=== PATIENT | female | born 1960 | race African-American/Black ===

== ENCOUNTER 2017-07-09 14:06 | Emergency (ER) | payer MEDICARE ==
[~2017-07-09] VITALS: Ht 167.6 cm; Wt 58.3 kg
[~2017-07-09 14:06] MED LIST: DILA2TAB4 PO; METH10TA PO; MULT-135 PO
[2017-07-09 14:38] VITALS: BP 162/68; PULSE 103; RESP 22; TEMP 100.2; O2SAT 94
[2017-07-09] MEDS ORDERED: ONDANSETRON HCL 4 MG/2 ML VIAL IVP ONE (15:15)
[2017-07-09] MEDS ORDERED: SODIUM CHLOR 0.9% 1000 ML INJ 1,000 ML IV ONE (15:15)
[2017-07-09] MEDS ORDERED: HYDROmorphone HCL PF 1 MG/ML VIAL IVS ONE (15:15)
--- NOTE | 2017-07-09 15:19 | PD ---
HPI Chief Complaint: Sickle Cell Time Seen by Provider: 15:04 Travel History International Travel<30 days: No Contact w/Intl Traveler<30days: No Traveled to known affect area: No History of Present Illness HPI The patient was seen and examined in the presence of the nurse. This patient complains of pain everywhere. She was at her oncologist office and received 750 cc of normal saline and 8 mg of IV Dilaudid through her port. She comes in from the office still complaining of pain everywhere. She has a temp of 100.2. She has no respiratory or GI symptoms. No urinary symptoms. She did not know she had a fever. No injury. Symptoms have no alleviating factors. No exacerbating factors. Duration 3 days. PFSH Past Medical History Arthritis: Yes Blood Disorders: Yes Anxiety: No Depression: No Heart Rhythm Problems: Yes Cancer: No Cardiovascular Problems: Yes (IRREGULAR HEART BEAT, VALVE ISSUE) High Cholesterol: Yes Chemotherapy: No Chest Pain: Yes Diabetes: No Diminished Hearing: No Endocrine: No Gastrointestinal Disorders: Yes (irritable bowel syndrome ) GERD: No Genitourinary: No Hepatitis: No Hiatal Hernia: No Immune Disorder: No Implanted Vascular Access Dvce: Yes Kidney Stones: No Musculoskeletal: Yes (SICKLE CELL PAIN) Neurologic: Yes Psychiatric: No Reproductive: No Respiratory: Yes (HX PNEUMONIA) Immunizations Current: Yes Radiation Therapy: No Renal Failure: No Sickle Cell Disease: Yes Thyroid Disease: No Ulcer: No ?: Not : 2 Para: 2 Miscarriage: 0 Tubal Ligation: Yes Past Surgical History Abdominal Surgery: Yes (CHOLY) AICD: No Appendectomy: No Arteriovenous Shunt: No Body Medical Devices: PORT PLACEMENT RIGHT Cardiac Surgery: No Cholecystectomy: Yes Ear Surgery: No Endocrine Surgery: No Eye Surgery: No Genitourinary Surgery: No Gynecologic Surgery: Yes (TUBAL LIGATION , LASH) Hysterectomy: Yes Insulin Pump: No Joint Replacement: No Oral Surgery: No Pacemaker: No Thoracic Surgery: Yes (PORT PLACEMENT RIGHT) Other Surgery: Yes (gallbladder, tubal ligatioin PORT PLACEMENT, LASH) Social History Alcohol Use: No Tobacco Use: No Substance Use: No Allergies-Medications (Allergen,Severity, Reaction): Coded Allergies: enoxaparin (Unverified Allergy, Severe, UNKNOWN REACTION, 07/09/17) pt states she has platlet count problems when heparin used to flush the infusaport heparin (porcine) (Unverified Allergy, Severe, UNKNOWN REACTION, 07/09/17) pt states she has platlet count problems when heparin used to flush the infusaport Reported Meds & Prescriptions Reported Meds & Active Scripts Active Reported Hydrea (Hydroxyurea) 500 Mg Cap 500 Mg PO DAILY Dilaudid (Hydromorphone HCl) 2 Mg Tab 4 Mg PO Q6H PRN Methadone (Methadone HCl) 10 Mg Tab 10 Mg PO TID Review of Systems General / Constitutional: Positive: Fever Eyes: No: Visual changes HENT: No: Headaches Cardiovascular: No: Chest Pain or Discomfort Respiratory: No: Shortness of Breath Gastrointestinal: No: Abdominal Pain Genitourinary: No: Dysuria Musculoskeletal: Positive: Myalgias, Pain Skin: No Rash Neurologic: No: Weakness Psychiatric: No: Depression Endocrine: No: Polydipsia Hematologic/Lymphatic: No: Easy Bruising Physical Exam Narrative GENERAL: Well-nourished, well-developed patient in no apparent distress. SKIN: Focused skin assessment reveals no rash and nodules. Skin is Warm and dry. HEAD: Atraumatic. Normocephalic. EYES: Pupils equal and round. No scleral icterus. No injection or drainage. ENT: No nasal bleeding or discharge. Mucous membranes pink and moist. NECK: Trachea midline. No JVD. Throat clear, no meningeal signs CARDIOVASCULAR: Regular rate and rhythm. No murmur appreciated. RESPIRATORY: No accessory muscle use. Clear to auscultation. Breath sounds equal bilaterally. GASTROINTESTINAL: Abdomen soft, non-tender, nondistended. Hepatic and splenic margins not palpable. MUSCULOSKELETAL: No obvious deformities. No clubbing. No cyanosis. No edema. Port in the right upper chest is no sign of infection NEUROLOGICAL: Awake and alert. No obvious cranial nerve deficits. Motor grossly within normal limits. Normal speech. PSYCHIATRIC: Appropriate mood and affect; insight and judgment normal. Data Data Last Documented VS Vital Signs Date Time Temp Pulse Resp B/P (MAP) Pulse Ox O2 Delivery O2 Flow Rate FiO2 07/09/17 16:50 99.6 100 18 155/74 (101) 100 Room Air Orders Orders Ondansetron Inj (Zofran Inj) (07/09/17 15:15) Sodium Chlor 0.9% 1000 Ml Inj (Ns 1000 M (07/09/17 15:15) Urinalysis - C+S If Indicated (07/09/17 15:14) Chest, Single Ap (07/09/17 ) Hydromorphone Pf Inj (Dilaudid Pf Inj) (07/09/17 15:45) Ed Discharge Order (07/09/17 17:55) Labs Laboratory Tests Test 07/09/17 16:40 Urine Collection Type CLEAN CATCH Urine Color YELLOW Urine Turbidity CLEAR Urine pH 6.0 Urine Specific Baird 1.010 Urine Protein NEG mg/dL Urine Glucose (UA) NEG mg/dL Urine Ketones NEG mg/dL Urine Occult Blood SMALL Urine Nitrite NEG Urine Bilirubin NEG Urine Urobilinogen 0.2 MG/DL Urine Leukocyte Esterase NEG Urine WBC 0-2 /hpf Urine Squamous Epithelial Cells 0-1 /hpf Microscopic Urinalysis Comment CULT NOT INDICATED MDM Medical Decision Making Medical Screen Exam Complete: Yes Emergency Medical Condition: Yes Medical Record Reviewed: Yes Differential Diagnosis Sickle cell pain, myalgias, narcotic seeking behavior, UTI Narrative Course I have reviewed the patient's electronic medical record. Reviewed her lab studies from today. She has chronic anemia and chronic thrombocytopenia both at her baseline. Metabolic profile was normal I gave her a liter of saline IV and IV Zofran and IV Dilaudid for symptom relief I reviewed her chest x-ray which is normal Urinalysis is clean I do not see evidence of bacterial infection. She should follow her temperature closely She did call her industrial controls technician tomorrow for follow-up Stable for outpatient follow-up Diagnosis Primary Impression: Sickle cell anemia with pain Additional Impression: Fever Qualified Codes: R50.9 - Fever, unspecified Additional Instructions: The patient was advised to follow up with their physician and return if they worsen. Med/Other Pt SpecificInfo: Other Disposition: 01 DISCHARGE HOME Condition: Stable Jake Latham MD Jul 09, 2017 15:19
[2017-07-09 15:41] VITALS: BP 141/79; PULSE 79; RESP 18; O2SAT 100
[2017-07-09] MEDS ORDERED: HYDR500C PO (15:41)
[2017-07-09] MEDS ORDERED: HYDROmorphone HCL PF 2 MG/ML VIAL IV PUSH ONE (15:45)
--- NOTE | 2017-07-09 15:56 | RADRPT ---
EXAM DATE/TIME: 07/09/2017 15:36 [facility] COMPARISON: CHEST SINGLE AP, August 10, 2015, 13:04. INDICATIONS : Fever. Sickle cell crisis. MEDICAL HISTORY : Sickle Cell disease. SURGICAL HISTORY : Infusaport. ENCOUNTER: Initial ACUITY: 1 day PAIN SCORE: 2/10 LOCATION: Bilateral chest FINDINGS: The cardiac silhouette is normal in transverse diameter. The lungs are free of acute parenchymal opac ity. No effusions are identified. [id number] is in place via right internal jugular approach with its tip in the superior vena cava. CONCLUSION: 1. No acute cardiopulmonary disease. Eh Donaldson MD on July 09, 2017 at 15:50 Board Certified Radiologist. This report was verified electronically.
[2017-07-09 16:50] VITALS: BP 155/74; PULSE 100; RESP 18; TEMP 99.6; O2SAT 100
[2017-07-09 17:13] LABS: BILIRUBIN, URINE NEG (NEG); BLOOD, URINE SMALL (NEG); GLUCOSE,URINE NEG (NEG); KETONE, URINE NEG (NEG); NITRITE,URINE NEG (NEG); URINE COLOR YELLOW (YELLW/STRAW); URINE LEUKOCYTE ESTERASE NEG (NEG)
[2017-07-09 17:19] LABS: SQUAMOUS EPITHELIAL CELL URINE 0-1 /hpf (0-5); WBC, URINE 0-2 /hpf (0-5)
[2017-07-09] MEDS ORDERED: HYDROmorphone HCL PF 2 MG/ML VIAL IVP ONE (18:15)
[2017-07-09 18:30] VITALS: BP 147/68; RESP 16; O2SAT 98
[2017-07-09 18:57] VITALS: RESP 16
== END 2017-07-09 18:59 | disposition home or self-care (01) ==
LOC: PHED 14:06
DX: D57.00 Hb-SS disease with crisis, unspecified (principal); R50.81 Fever presenting with conditions classified elsewhere; M19.90 Unspecified osteoarthritis, unspecified site; E78.00 Pure hypercholesterolemia, unspecified; K58.9 Irritable bowel syndrome, unspecified; I49.9 Cardiac arrhythmia, unspecified
CPT/HCPCS: 71045; 81001; 96361; 96374; 96375; 96376; 99284; J1170; J2405; J7030

== ENCOUNTER 2017-07-10 12:10 | Inpatient (IN) | payer MEDICARE ==
[2017-07-10] VITALS (8 sets, daily range): BP systolic 133–168; BP diastolic 70–81; PULSE 94–116; RESP 18–20; TEMP 97.7–99.4; O2SAT 98–100
[~2017-07-10 12:10] MED LIST changes: +HYDR500C PO
[2017-07-10] MEDS ORDERED: TEMAZEPAM 15 MG CAP PO PRN (14:15)
[2017-07-10] MEDS ORDERED: PROCHLORPERAZINE INJ 10 MG/2 ML VIAL IV PUSH PRN (14:15)
[2017-07-10] MEDS ORDERED: ALTEPLASE RECOMBINANT 2 MG VIAL IVF PRN (14:15)
[2017-07-10] MEDS ORDERED: diphenhydrAMINE HCL 25 MG CAP PO PRN (14:15)
[2017-07-10] MEDS ORDERED: SODIUM CHLORIDE 0.9% FLUSH 10 ML FLUSH IVF PRN (14:15)
[2017-07-10] MEDS ORDERED: SODIUM CHLOR 0.9% 250 ML INJ 250 ML IV ONE (14:15)
[2017-07-10] MEDS ORDERED: MAGNESIUM HYDROXIDE SUSP 30 ML CUP PO PRN (14:15)
[2017-07-10] MEDS ORDERED: ONDANSETRON INJ 8 MG in DEXTROSE 5% IN WATER INJ 50 ML IV PRN ×2 (14:15)
[2017-07-10] MEDS ORDERED: LORazepam 0.5 MG TAB PO PRN (14:15)
[2017-07-10] MEDS ORDERED: ACETAMINOPHEN 325 MG TAB PO PRN (14:15)
[2017-07-10] MEDS ORDERED: HYDROmorphone HCL PF 2 MG/ML VIAL IV PUSH SCH (15:00)
--- NOTE | 2017-07-10 15:12 | MH ---
cc: Pema Chin MD DATE OF ADMISSION: 07/10/2017 ADMISSION DIAGNOSES: 1. Sickle cell disease and frequent vasoocclusive pain crises. 2. Sickle cell pain. 3. Thrombocytopenia. 4. Chronic anemia. 5. Hyperbilirubinemia. HISTORY OF PRESENT ILLNESS: Ms. Vergara is a 56-year-old woman, well known patient, with sickle cell thalassemia. 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 She has chronic pain, for which she is on methadone 10 mg t.i.d. She takes Dilaudid p.r.n. for breakthrough. She is frequently in the clinic trying to manage her vasoocclusive pain symptoms. She was in the clinic on 07/09/2017, receiving IV fluid hydration for acute vasoocclusive pain symptoms. Coming back from the bathroom, she had acute onset of bone pain. She had severe unrelenting pain that was not relieved with Dilaudid 4 mg. This was more severe pain that could be managed in the clinic, especially without any relief at all from Dilaudid 4 mg. She was referred to the emergency room for evaluation. She was seen by Dr. Jake Latham. She had a slight elevation in temperature. No urinary symptoms. She was given IV fluid hydration and 8 mg of Dilaudid through her port and despite this, however, she was still in pain. However, she was discharged home with an x-ray that is normal and urinalysis that is clean. The following day, she came into the oncology clinic at [facility] with an unscheduled visit. She complains of severe pain in her left arm with significant pain and discomfort out of proportion to her usual baseline pain that she is unable to manage at home. Laboratory evaluation from her ER visit shows a hemoglobin of 8.5. She is reticking with a retic count of 6.3. Her BUN is 8, creatinine 0.91. LDH is elevated. The bilirubin at 2.1. For this reason, she was offered admission to the hospital for management of acute vasoocclusive pain crises. She may need a phlebotomy or red cell exchange. She denies any fever, but she has low-grade temperature on coming into the clinic. She is tachycardic. She has typical symptoms consistent with vasoocclusive pain crises. PAST MEDICAL HISTORY: Chronic anemia, chronic pain, hyperbilirubinemia, splenomegaly, unintentional weight loss, sickle cell. PAST SURGICAL HISTORY: Hysterectomy, port placement. ALLERGIES: HEPARIN. SOCIAL HISTORY: She is . Never smoker. She drinks alcohol occasionally. She denies any illicit drug use. FAMILY HISTORY: No family history of cancer. She does not know if her parents are still around. PHYSICAL EXAMINATION: VITAL SIGNS: Temperature 99.4, heart rate 94, respiratory rate 18, blood pressure 136/78. GENERAL: Ms. Vergara is a slender, well-developed woman in some modest distress. She is painful, hurting, with her left arm the most painful site. HEENT: Her pupils are round and reactive. Sclerae are icteric. Oropharynx is clear. NECK: Supple. LUNGS: Clear. CARDIOVASCULAR: Reveals tachycardia. ABDOMEN: Benign. EXTREMITIES: Lower extremities with no edema. LABORATORY DATA: As described above. ASSESSMENT AND PLAN: Ms. Vergara is a 56-year-old woman with sickle thalassemia, chronic anemia, chronic thrombocytopenia. SHE HAS A HISTORY OF ALLERGY TO HEPARIN WITH HEPARIN-INDUCED THROMBOCYTOPENIA. We discussed admission to the hospital for acute management of her vasoocclusive pain symptoms. I recommend exchange via removal of 200 mL of red blood cells and in turn transfusing. Ms. Vergara has been infrequently transfused. She has not required it as her hemoglobin is quite stable, high, with her sickle thalassemia. She has out of proportion pain. We will continue her long-acting pain medication with methadone. Her breakthrough medication will be offered frequently. Try to assist in managing her symptoms. In the meantime, supportive care with IV fluid hydration and oxygen is also going to be administered. There seems to be no infectious etiology or precipitating event. This seems to be just related to the course of waxing and waning of sickle cell vasoocclusive pain symptoms. We will monitor closely for complications, thrombotic event. Pneumatic compression stockings and support hose will be offered as nonpharmacologic means to prevent deep vein thromboses. Arixtra may be considered if the duration of the hospitalization is longer and if she is not getting out of bed. Her questions were answered to her satisfaction. Pema Chin MD ALEENA/MICKI , 02:23 PM , 03:11 PM
[2017-07-10] MEDS ORDERED: HYDROmorphone HCL PF 2 MG/ML VIAL IV PUSH PRN ×2 (15:15→19:00)
[2017-07-10] MEDS: SODIUM CHLOR 0.9% 1000 ML INJ 1,000 ML IV SCH (15:28)
--- NOTE | 2017-07-10 16:31 | RADRPT ---
EXAM DATE/TIME: 07/10/2017 15:20 [facility] COMPARISON: CHEST SINGLE AP, July 09, 2017, 15:36. INDICATIONS : Chest pain. MEDICAL HISTORY : Sickle Cell disease. SURGICAL HISTORY : Infusaport. ENCOUNTER: Subsequent ACUITY: 2 days PAIN SCORE: 110 LOCATION: Bilateral chest FINDINGS: A single view of the chest demonstrates the lungs to be symmetrically aerated without evidence of mas s, infiltrate or effusion. [id number] in good position. The cardiomediastinal contours are unrem arkable. Osseous structures are intact. CONCLUSION: No acute disease. Hipolito Meier MD FACR on July 10, 2017 at 16:28 Board Certified Radiologist. This report was verified electronically.
[2017-07-10] MEDS: METHADONE HCL 10 MG TAB PO SCH (18:28)
[2017-07-10] MEDS: HYDROmorphone HCL PF 2 MG/ML VIAL IV PUSH SCH ×4 (18:28→23:38)
[2017-07-10 19:11] LABS: AUTOMATED NEUTROPHIL # 3.3 TH/MM3 (1.8-7.7); BASOPHIL % 0.6 % (0.0-2.0); EOSINOPHIL # 0.1 TH/MM3 (0-0.4); EOSINOPHIL % 1.7 % (0.0-4.0); HEMATOCRIT 22.7 % (35.0-46.0); HEMOGLOBIN 7.6 GM/DL (11.6-15.3); LYMPH % 35.7 % (9.0-44.0); LYMPHOCYTE # 2.1 TH/MM3 (1.0-4.8); MEAN CELL VOLUME 69.4 FL (80.0-100.0); MEAN CORPUSCULAR HEMOGLOBIN 23.3 PG (27.0-34.0); MEAN CORPUSCULAR HGB CONC 33.6 % (32.0-36.0); MEAN PLATELET VOLUME 8.9 FL (7.0-11.0); MONO % 4.7 % (0.0-8.0); MONOCYTE # 0.3 TH/MM3 (0-0.9); NEUT % 57.3 % (16.0-70.0); PLATELET COUNT 116 TH/MM3 (150-450); RED BLOOD COUNT 3.27 MIL/MM3 (4.00-5.30); RED CELL DISTRIBUTION WIDTH 22.1 % (11.6-17.2); WHITE BLOOD COUNT 5.8 TH/MM3 (4.0-11.0)
[2017-07-10 19:17] LABS: ALBUMIN 3.5 GM/DL (3.4-5.0); AST (GOT) 60 U/L (15-37); BICARBONATE 28.9 MEQ/L (21.0-32.0); BLOOD UREA NITROGEN 8 MG/DL (7-18); CALCIUM 8.9 MG/DL (8.5-10.1); CHLORIDE 108 MEQ/L (98-107); CREATININE 0.85 MG/DL (0.50-1.00); GLOMERULAR FILTRATION RATE 84 ML/MIN (>89); GLUCOSE,RANDOM 89 MG/DL (74-106); SODIUM (NA) 143 MEQ/L (136-145)
[2017-07-10 19:22] LABS: ALKALINE PHOSPHATASE 60 U/L (45-117); ALT (GPT) 18 U/L (10-53); TROPONIN I LESS THAN 0.02 NG/ML (0.02-0.05)
[2017-07-10 20:35] LABS: CORRECTED NUCLEATED RBC 2 /100 WBC (0-0); LYMPHOCYTES 30 % (9-44); MONOCYTES 2 % (0-8); NEUTROPHIL # MANUAL DIFF 3.8 TH/MM3 (1.8-7.7); NUCLEATED RED BLOOD CELL 2 (0-0); POLYS (SEG NEUTROPHILS) 66 % (16-70)
[2017-07-10 20:37] LABS: KERATOCYTES OCC (NORMAL); TARGET CELLS 1+ (NORMAL)
[2017-07-10 20:38] LABS: OVALOCYTES 1+ (NORMAL)
[2017-07-10 20:43] LABS: TEARDROP RBCS 1+ (NORMAL)
[2017-07-10] MEDS ORDERED: METHADONE HCL 10 MG TAB PO SCH (21:00)
[2017-07-11] VITALS (13 sets, daily range): BP systolic 119–147; BP diastolic 57–86; PULSE 93–116; RESP 18–20; TEMP 98.7–99.4; O2SAT 94–98
[2017-07-11] MEDS: SODIUM CHLOR 0.9% 1000 ML INJ 1,000 ML IV SCH ×2 (01:46→14:07)
[2017-07-11] MEDS: HYDROmorphone HCL PF 2 MG/ML VIAL IV PUSH SCH ×7 (02:01→16:54)
[2017-07-11 05:54] LABS: AUTOMATED NEUTROPHIL # 3.7 TH/MM3 (1.8-7.7); BASOPHIL % 0.2 % (0.0-2.0); EOSINOPHIL # 0.1 TH/MM3 (0-0.4); EOSINOPHIL % 1.8 % (0.0-4.0); LYMPH % 37.3 % (9.0-44.0); LYMPHOCYTE # 2.4 TH/MM3 (1.0-4.8); MEAN CELL VOLUME 72.7 FL (80.0-100.0); MEAN CORPUSCULAR HEMOGLOBIN 24.2 PG (27.0-34.0); MEAN CORPUSCULAR HGB CONC 33.3 % (32.0-36.0); MEAN PLATELET VOLUME 9.9 FL (7.0-11.0); MONO % 4.4 % (0.0-8.0); MONOCYTE # 0.3 TH/MM3 (0-0.9); NEUT % 56.3 % (16.0-70.0); PLATELET COUNT 80 TH/MM3 (150-450); RED BLOOD COUNT 2.35 MIL/MM3 (4.00-5.30); RED CELL DISTRIBUTION WIDTH 23.3 % (11.6-17.2); WHITE BLOOD COUNT 6.6 TH/MM3 (4.0-11.0)
[2017-07-11 06:11] LABS: BICARBONATE 27.4 MEQ/L (21.0-32.0); CALCIUM 8.5 MG/DL (8.5-10.1); CREATININE 0.86 MG/DL (0.50-1.00)
[2017-07-11 06:14] LABS: HEMATOCRIT 17.1 % (35.0-46.0); HEMOGLOBIN 5.7 GM/DL (11.6-15.3)
[2017-07-11 08:10] LABS: TARGET CELLS 1+ (NORMAL)
[2017-07-11 08:11] LABS: KERATOCYTES OCC (NORMAL); OVALOCYTES 2+ (NORMAL); TEARDROP RBCS 1+ (NORMAL)
[2017-07-11 08:13] LABS: POLYCHROMASIA 2.8 % (0.0-1.9)
[2017-07-11] MEDS: METHADONE HCL 10 MG TAB PO SCH ×3 (09:00→18:36)
[2017-07-11] MEDS ORDERED: diphenhydrAMINE HCL 25 MG CAP PO PRN (09:00)
[2017-07-11] MEDS ORDERED: ACETAMINOPHEN 325 MG TAB PO PRN (09:00)
--- NOTE | 2017-07-11 09:13 | PD.ONC.PN ---
Subjective Subjective Remarks Afebrile overnight. Patient resting in bed in nad. still having pain in left arm. denies cough. pain slightly improved from yesterday. Objective Data Date Time Temp Pulse Resp B/P (MAP) Pulse Ox O2 Delivery O2 Flow Rate FiO2 07/11/17 05:00 94 07/11/17 04:00 96 07/11/17 04:00 98.8 101 20 119/65 (83) 97 07/11/17 03:00 98 07/11/17 02:00 98 07/11/17 01:00 100 07/11/17 00:00 101 07/11/17 00:00 98.7 105 20 130/73 (92) 94 07/10/17 23:00 116 07/10/17 22:00 98 07/10/17 20:33 99.3 103 20 133/70 (91) 99 07/10/17 20:00 105 07/10/17 16:45 97.7 110 20 168/81 (110) 98 07/10/17 16:00 98 07/10/17 13:44 99.4 94 18 136/78 (97) 100 Result Diagram: 07/11/17 0400 07/11/17 0400 Laboratory Results Laboratory Tests Test 07/10/17 18:00 07/11/17 04:00 White Blood Count 5.8 TH/MM3 6.6 TH/MM3 Red Blood Count 3.27 MIL/MM3 2.35 MIL/MM3 Hemoglobin 7.6 GM/DL 5.7 GM/DL Hematocrit 22.7 % 17.1 % Mean Corpuscular Volume 69.4 FL 72.7 FL Mean Corpuscular Hemoglobin 23.3 PG 24.2 PG Mean Corpuscular Hemoglobin Concent 33.6 % 33.3 % Red Cell Distribution Width 22.1 % 23.3 % Platelet Count 116 TH/MM3 80 TH/MM3 Mean Platelet Volume 8.9 FL 9.9 FL Neutrophils (%) (Auto) 57.3 % 56.3 % Lymphocytes (%) (Auto) 35.7 % 37.3 % Monocytes (%) (Auto) 4.7 % 4.4 % Eosinophils (%) (Auto) 1.7 % 1.8 % Basophils (%) (Auto) 0.6 % 0.2 % Neutrophils # (Auto) 3.3 TH/MM3 3.7 TH/MM3 Lymphocytes # (Auto) 2.1 TH/MM3 2.4 TH/MM3 Monocytes # (Auto) 0.3 TH/MM3 0.3 TH/MM3 Eosinophils # (Auto) 0.1 TH/MM3 0.1 TH/MM3 Basophils # (Auto) 0.0 TH/MM3 0.0 TH/MM3 CBC Comment AUTO DIFF AUTO DIFF Differential Total Cells Counted 100 Neutrophils % (Manual) 66 % Lymphocytes % 30 % Monocytes % 2 % Eosinophils % 2 % Neutrophils # (Manual) 3.8 TH/MM3 Nucleated Red Blood Cells 2 /100 WBC Differential Comment FINAL DIFF MANUAL AUTO DIFF CONFIRMED Platelet Estimate LOW LOW Platelet Morphology Comment ENLARGED NORMAL Basophilic Stippling MOD FAINT Target Cells 1+ 1+ Tear Drop Cells 1+ 1+ Ovalocytes 1+ 2+ Keratocytes OCC OCC Blood Urea Nitrogen 8 MG/DL 8 MG/DL Creatinine 0.85 MG/DL 0.86 MG/DL Random Glucose 89 MG/DL 91 MG/DL Total Protein 7.0 GM/DL Albumin 3.5 GM/DL Calcium Level 8.9 MG/DL 8.5 MG/DL Alkaline Phosphatase 60 U/L Aspartate Amino Transf (AST/SGOT) 60 U/L Alanine Aminotransferase (ALT/SGPT) 18 U/L Total Bilirubin 2.0 MG/DL Sodium Level 143 MEQ/L 144 MEQ/L Potassium Level 3.9 MEQ/L 4.1 MEQ/L Chloride Level 108 MEQ/L 113 MEQ/L Carbon Dioxide Level 28.9 MEQ/L 27.4 MEQ/L Anion Gap 6 MEQ/L 4 MEQ/L Estimat Glomerular Filtration Rate 84 ML/MIN 83 ML/MIN Troponin I LESS THAN 0.02 NG/ML Polychromasia 2.8 % Administered Medications Medications (Trade) Dose Ordered Sig/Natalie Route PRN Reason Start Time Stop Time Status Last Admin Dose Admin Acetaminophen (Tylenol) 650 mg Q4H PRN PO SEE LABEL COMMENTS 07/10/17 14:15 07/11/17 07:58 Diphenhydramine HCl (Benadryl) 25 mg Q4H PRN PO SEE LABEL COMMENTS 07/10/17 14:15 07/11/17 07:57 Sodium Chloride 1,000 ml @ 100 mls/hr Q10H IV 07/10/17 14:15 07/11/17 10:14 07/11/17 01:46 Methadone HCl (Dolophine) 10 mg TID PO 07/10/17 18:00 07/10/17 18:28 Hydromorphone HCl (Dilaudid Pf Inj) 2 mg Q2HR IV PUSH 07/10/17 18:00 07/11/17 17:59 07/11/17 07:57 Objective Remarks GENERAL: Middle aged female, sitting up in bed in nad. SKIN: Warm and dry. HEAD: Normocephalic. EYES: No injection or drainage. NECK: Supple, trachea midline. CARDIOVASCULAR: Regular rate and rhythm RESPIRATORY: Breath sounds equal bilaterally. No accessory muscle use. GASTROINTESTINAL: Abdomen soft, non-tender, nondistended. EXTREMITIES: No cyanosis NEUROLOGICAL: awake and alert. normal speech. moving extremities. Assessment/Plan Problem List: (1) Sickle cell crisis ICD Codes: D57.00 - Hb-SS disease with crisis, unspecified Status: Acute Plan: --s/p simple exchange transfusion on 07/10, pRBC given on 07/11 --on IVF + IV dilaudid pain management. Assessment 56y/o female with sickle cell disease admitted with vasoocclusive pain crisis. 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 HISTORY OF ALLERGY TO HEPARIN WITH HEPARIN-INDUCED THROMBOCYTOPENIA. Plan 1. continue supportive care with IVF, pain management. 2. monitor CBC, give 1 unit pRBC, then check H/H, may need second unit pRBC Attending Statement The exam, history, and the medical decision-making described in the above note were completed with the assistance of the mid-level provider. I reviewed and agree with the findings presented. I attest that I had a [id number] encounter with the patient on the same day, and personally performed and documented my assessment and findings in the medical record. Improved from yesterday, L arm still hurts/bone pain still intermittent excruciating. Decline offer to increase her basal methadone. Comfortable on current regimen, not needed Q2H dosing. Monitor next 24 hours. Check Hgb, monitor platelets, encourage ambulation. No additional transfusion for now. Martha Conklin Jul 11, 2017 09:13 Pema Chin MD Jul 11, 2017 19:09
[2017-07-11] MEDS ORDERED: SODIUM CHLOR 0.9% 250 ML INJ 250 ML IV ONE (10:00)
[2017-07-11] MEDS: DOCUSATE SODIUM 50 MG/SENNA 8.6 MG TAB PO SCH ×2 (14:12→21:49)
[2017-07-11 15:07] LABS: HEMATOCRIT 25.5 % (35.0-46.0); HEMOGLOBIN 8.4 GM/DL (11.6-15.3)
--- NOTE | 2017-07-11 21:25 | EKG ---
Date Performed: 07/10/2017 Time Performed: 15:46:40 PTAGE: 56 years EKG: Sinus rhythm Compared to previous tracing, sinus rate is slower NORMAL ECG PREVIOUS TRACING : 08/08/2015 10.53 DOCTOR: Evaristo Trotter Interpretating Date/Time 07/11/2017 21:23:10
[2017-07-11] MEDS: HYDROmorphone HCL PF 2 MG/ML VIAL IV PUSH PRN (21:49)
[2017-07-12 01:05] VITALS: BP 129/67; PULSE 89; RESP 20; TEMP 98.8; O2SAT 99
[2017-07-12] MEDS: HYDROmorphone HCL PF 2 MG/ML VIAL IV PUSH PRN ×7 (01:10→23:09)
[2017-07-12 04:36] VITALS: BP 139/76; PULSE 88; RESP 20; TEMP 98.9; O2SAT 98
[2017-07-12] MEDS: SODIUM CHLOR 0.9% 1000 ML INJ 1,000 ML IV SCH ×3 (04:45→21:06)
[2017-07-12 05:42] LABS: AUTOMATED NEUTROPHIL # 3.8 TH/MM3 (1.8-7.7); BASOPHIL % 0.2 % (0.0-2.0); EOSINOPHIL # 0.2 TH/MM3 (0-0.4); EOSINOPHIL % 3.5 % (0.0-4.0); HEMATOCRIT 22.4 % (35.0-46.0); HEMOGLOBIN 7.5 GM/DL (11.6-15.3); LYMPH % 25.3 % (9.0-44.0); LYMPHOCYTE # 1.4 TH/MM3 (1.0-4.8); MEAN CELL VOLUME 72.5 FL (80.0-100.0); MEAN CORPUSCULAR HEMOGLOBIN 24.3 PG (27.0-34.0); MEAN CORPUSCULAR HGB CONC 33.6 % (32.0-36.0); MEAN PLATELET VOLUME 8.8 FL (7.0-11.0); MONO % 3.9 % (0.0-8.0); MONOCYTE # 0.2 TH/MM3 (0-0.9); NEUT % 67.1 % (16.0-70.0); PLATELET COUNT 99 TH/MM3 (150-450); RED CELL DISTRIBUTION WIDTH 23.8 % (11.6-17.2); WHITE BLOOD COUNT 5.6 TH/MM3 (4.0-11.0)
[2017-07-12 05:55] LABS: ALBUMIN 3.2 GM/DL (3.4-5.0); AST (GOT) 53 U/L (15-37); BICARBONATE 27.3 MEQ/L (21.0-32.0); BLOOD UREA NITROGEN 7 MG/DL (7-18); CALCIUM 8.9 MG/DL (8.5-10.1); CHLORIDE 110 MEQ/L (98-107); GLOMERULAR FILTRATION RATE 105 ML/MIN (>89); GLUCOSE,RANDOM 84 MG/DL (74-106); SODIUM (NA) 142 MEQ/L (136-145)
[2017-07-12 05:58] LABS: ALKALINE PHOSPHATASE 51 U/L (45-117); ALT (GPT) 14 U/L (10-53); TOTAL BILIRUBIN ADULT 2.3 MG/DL (0.2-1.0); TOTAL PROTEIN 6.7 GM/DL (6.4-8.2)
[2017-07-12 08:00] LABS: OVALOCYTES 1+ (NORMAL); TEARDROP RBCS 2+ (NORMAL)
[2017-07-12 08:01] LABS: POLYCHROMASIA 2.4 % (0.0-1.9); TARGET CELLS 2+ (NORMAL)
[2017-07-12 08:02] LABS: KERATOCYTES 1+ (NORMAL)
[2017-07-12] MEDS: METHADONE HCL 10 MG TAB PO SCH ×3 (08:57→19:00)
[2017-07-12] MEDS: DOCUSATE SODIUM 50 MG/SENNA 8.6 MG TAB PO SCH ×2 (08:57→21:05)
[2017-07-12 08:58] VITALS: BP 154/92; PULSE 100; RESP 18; TEMP 99.2; O2SAT 99
--- NOTE | 2017-07-12 09:58 | PD.ONC.PN ---
Subjective Subjective Remarks Afebrile overnight. patient continues to have a large amount of pain in left arm. pain is improved with the pain medications. but she still does not feel well enough to go home. Objective Data Date Time Temp Pulse Resp B/P (MAP) Pulse Ox O2 Delivery O2 Flow Rate FiO2 07/12/17 08:58 99.2 100 18 154/92 (112) 99 07/12/17 04:36 98.9 88 20 139/76 (97) 98 07/12/17 01:05 98.8 89 20 129/67 (87) 99 07/11/17 21:45 99.0 102 18 147/75 (99) 98 07/11/17 16:55 99.4 100 18 143/86 (105) 98 07/11/17 15:08 18 07/11/17 14:39 18 07/11/17 12:09 98.7 98 18 120/57 96 07/11/17 12:00 100 07/11/17 11:27 18 07/11/17 10:17 98.7 116 18 134/84 98 07/12/17 07/12/17 07/12/17 07:00 15:00 23:00 Intake Total 330 ml Balance 330 ml Result Diagram: 07/12/17 0500 07/12/17 0500 Laboratory Results Laboratory Tests Test 07/11/17 14:00 07/12/17 05:00 Hemoglobin 8.4 GM/DL 7.5 GM/DL Hematocrit 25.5 % 22.4 % White Blood Count 5.6 TH/MM3 Red Blood Count 3.10 MIL/MM3 Mean Corpuscular Volume 72.5 FL Mean Corpuscular Hemoglobin 24.3 PG Mean Corpuscular Hemoglobin Concent 33.6 % Red Cell Distribution Width 23.8 % Platelet Count 99 TH/MM3 Mean Platelet Volume 8.8 FL Neutrophils (%) (Auto) 67.1 % Lymphocytes (%) (Auto) 25.3 % Monocytes (%) (Auto) 3.9 % Eosinophils (%) (Auto) 3.5 % Basophils (%) (Auto) 0.2 % Neutrophils # (Auto) 3.8 TH/MM3 Lymphocytes # (Auto) 1.4 TH/MM3 Monocytes # (Auto) 0.2 TH/MM3 Eosinophils # (Auto) 0.2 TH/MM3 Basophils # (Auto) 0.0 TH/MM3 CBC Comment AUTO DIFF Differential Comment AUTO DIFF CONFIRMED Polychromasia 2.4 % Basophilic Stippling FAINT Target Cells 2+ Tear Drop Cells 2+ Ovalocytes 1+ Keratocytes 1+ Blood Urea Nitrogen 7 MG/DL Creatinine 0.70 MG/DL Random Glucose 84 MG/DL Total Protein 6.7 GM/DL Albumin 3.2 GM/DL Calcium Level 8.9 MG/DL Alkaline Phosphatase 51 U/L Aspartate Amino Transf (AST/SGOT) 53 U/L Alanine Aminotransferase (ALT/SGPT) 14 U/L Total Bilirubin 2.3 MG/DL Sodium Level 142 MEQ/L Potassium Level 3.8 MEQ/L Chloride Level 110 MEQ/L Carbon Dioxide Level 27.3 MEQ/L Anion Gap 5 MEQ/L Estimat Glomerular Filtration Rate 105 ML/MIN Administered Medications Medications (Trade) Dose Ordered Sig/Natalie Route PRN Reason Start Time Stop Time Status Last Admin Dose Admin Methadone HCl (Dolophine) 10 mg TID PO 07/10/17 18:00 07/12/17 08:57 Senna/Docusate Sodium (Chelsey-Colace) 1 tab BID PO 07/11/17 11:45 07/12/17 08:57 Sodium Chloride 1,000 ml @ 84 mls/hr [id number] IV 07/11/17 11:45 07/12/17 04:45 Hydromorphone HCl (Dilaudid Pf Inj) 2 mg Q3HR PRN IV PUSH breakthrough pain 07/11/17 19:15 07/12/17 08:53 Objective Remarks GENERAL: Middle aged female, upright in bed, complaining of pain in left arm. SKIN: Warm and dry. HEAD: Normocephalic. EYES: No injection or drainage. NECK: Supple, trachea midline. CARDIOVASCULAR: Regular rate and rhythm RESPIRATORY: Breath sounds equal bilaterally. No accessory muscle use. GASTROINTESTINAL: Abdomen soft, non-tender, nondistended. EXTREMITIES: No cyanosis. no edema. NEUROLOGICAL: awake and alert. moving extremities. normal speech. Assessment/Plan Problem List: (1) Sickle cell crisis ICD Codes: D57.00 - Hb-SS disease with crisis, unspecified Status: Acute Plan: --s/p simple exchange transfusion on 07/10, pRBC given on 07/11 --on IVF + IV dilaudid pain management. Assessment 56y/o female with sickle cell disease admitted with vasoocclusive pain crisis. 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 HISTORY OF ALLERGY TO HEPARIN WITH HEPARIN-INDUCED THROMBOCYTOPENIA. Plan 1. monitor CBC 2. continue pain management with methadone and IV dilaudid 3. continue IVF Attending Statement The exam, history, and the medical decision-making described in the above note were completed with the assistance of the mid-level provider. I reviewed and agree with the findings presented. I attest that I had a [id number] encounter with the patient on the same day, and personally performed and documented my assessment and findings in the medical record. Complain of pain in L arm. Symptoms consistent with vasoocclusive crisis vs. bone infarct. Continue supportive care, O2, IVF, pain medication. BM today. Pain still severe, plan to reevaluate in AM. Anticipate DC tomorrow. Martha Conklin Jul 12, 2017 09:58 Pema Chin MD Jul 12, 2017 17:33
--- NOTE | 2017-07-12 11:47 | RADRPT ---
EXAM DATE/TIME: 07/12/2017 10:36 [facility] COMPARISON: No previous studies available for comparison. INDICATIONS : Left arm pain. MEDICAL HISTORY : Sickle Cell disease. Thrombocytopenia. Chronic anemia. Hyperbilirubinemia. SURGICAL HISTORY : Hysterectomy. Port placement. ENCOUNTER: Initial ACUITY: 3 days PAIN SCORE: 6/10 LOCATION: Left arm. FINDINGS: There is spontaneous flow documented in the brachial, basilic, cephalic, axillary, and subclavian vei ns. The vessels are compressible and augmentation response is documented. No filling defects are se en. The flow is phasic with respiration. Direction of flow in the jugular vein is caudal. CONCLUSION: No evidence of deep venous thrombosis within the left upper extremity. Mundo Hall MD on July 12, 2017 at 11:44 Board Certified Radiologist. This report was verified electronically.
[2017-07-12 14:00] VITALS: BP 143/80; PULSE 95; RESP 18; TEMP 98.7; O2SAT 100
--- NOTE | 2017-07-12 15:30 | RADRPT ---
EXAM DATE/TIME: 07/12/2017 15:00 [facility] COMPARISON: No previous studies available for comparison. INDICATIONS : Throbbing pain in left arm. Evaluate for bone infarction. MEDICAL HISTORY : Sickle Cell disease. SURGICAL HISTORY : None. ENCOUNTER: Initial ACUITY: 4 - 6 days PAIN SCORE: 8/10 LOCATION: Left forearm FINDINGS: Two view examination of the left forearm demonstrates no evidence of fracture or dislocation. Bony m ineralization is normal. The soft tissue structures are intact. CONCLUSION: Negative for fracture or inflammatory process. Hipolito Meier MD FACR on July 12, 2017 at 15:28 Board Certified Radiologist. This report was verified electronically.
--- NOTE | 2017-07-12 15:30 | RADRPT ---
EXAM DATE/TIME: 07/12/2017 15:07 [facility] COMPARISON: No previous studies available for comparison. INDICATIONS : Throbbing pain in left arm. Evalute for bone infarction. MEDICAL HISTORY : Sickle Cell disease. SURGICAL HISTORY : None. ENCOUNTER: Initial ACUITY: 4 - 6 days PAIN SCORE: 8/10 LOCATION: Left humerus FINDINGS: Two view examination of the left humerus demonstrates no evidence of fracture or dislocation. Bony m ineralization is normal. The soft tissue structures are intact. CONCLUSION: Negative for fracture or inflammatory process. Hipolito Meier MD FACR on July 12, 2017 at 15:28 Board Certified Radiologist. This report was verified electronically.
[2017-07-12 16:00] VITALS: BP 145/82; PULSE 82; RESP 18; TEMP 98.4; O2SAT 96
[2017-07-12 21:13] VITALS: BP 130/78; PULSE 85; RESP 18; TEMP 98.8; O2SAT 98
[2017-07-13] VITALS: BP 139/76; PULSE 88; RESP 18; TEMP 99; O2SAT 100
[2017-07-13] MEDS: HYDROmorphone HCL PF 2 MG/ML VIAL IV PUSH PRN ×4 (02:08→12:53)
[2017-07-13 05:30] VITALS: BP 128/82; PULSE 86; RESP 16; TEMP 98; O2SAT 98
[2017-07-13 08:44] VITALS: BP 132/82; PULSE 82; RESP 16; TEMP 98.6; O2SAT 98
[2017-07-13] MEDS: DOCUSATE SODIUM 50 MG/SENNA 8.6 MG TAB PO SCH (09:03)
[2017-07-13] MEDS: METHADONE HCL 10 MG TAB PO SCH ×2 (09:03→12:52)
[2017-07-13] MEDS: SODIUM CHLOR 0.9% 1000 ML INJ 1,000 ML IV SCH (09:12)
--- NOTE | 2017-07-13 09:19 | PD.ONC.PN ---
Subjective Subjective Remarks Afebrile overnight Patient reports she is feeling much better Has a heating blanket to her arm States she feels comfortable to go home today Objective Data Date Time Temp Pulse Resp B/P (MAP) Pulse Ox O2 Delivery O2 Flow Rate FiO2 07/13/17 08:44 98.6 82 16 132/82 (99) 98 07/13/17 05:30 98.0 86 16 128/82 (97) 98 07/13/17 00:00 99.0 88 18 139/76 (97) 100 07/12/17 21:13 98.8 85 18 130/78 (95) 98 07/12/17 16:00 98.4 82 18 145/82 (103) 96 07/12/17 14:59 18 07/12/17 14:00 98.7 95 18 143/80 (101) 100 07/12/17 09:23 18 07/13/17 07/13/17 07/13/17 07:00 15:00 23:00 Intake Total 240 ml Balance 240 ml Result Diagram: 07/12/17 0500 07/12/17 0500 Administered Medications Medications (Trade) Dose Ordered Sig/Natalie Route PRN Reason Start Time Stop Time Status Last Admin Dose Admin Methadone HCl (Dolophine) 10 mg TID PO 07/10/17 18:00 07/13/17 09:03 Senna/Docusate Sodium (Chelsey-Colace) 1 tab BID PO 07/11/17 11:45 07/13/17 09:03 Sodium Chloride 1,000 ml @ 84 mls/hr [id number] IV 07/11/17 11:45 07/13/17 09:12 Hydromorphone HCl (Dilaudid Pf Inj) 2 mg Q3HR PRN IV PUSH breakthrough pain 07/11/17 19:15 07/13/17 09:02 Objective Remarks GENERAL: Older female sitting up in bed conversing in no obvious distress SKIN: Warm and dry. HEAD: Normocephalic. EYES: No injection or drainage. NECK: Supple, trachea midline. CARDIOVASCULAR: Regular rate and rhythm without murmurs. RESPIRATORY: Clear posteriorly. Breathing unlabored at rest. GASTROINTESTINAL: Abdomen soft, non-tender, nondistended. EXTREMITIES: Heating pad over left arm. No edema. MUSCULOSKELETAL: Adequate muscle tone. NEUROLOGICAL: No obvious focal deficit. Awake, alert, and oriented x3. Assessment/Plan Problem List: (1) Sickle cell crisis ICD Codes: D57.00 - Hb-SS disease with crisis, unspecified Status: Acute Plan: --s/p simple exchange transfusion on 07/10, pRBC given on 07/11 --on IVF + IV dilaudid pain management. Assessment 56y/o female with sickle cell disease admitted with vasoocclusive pain crisis. 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 HISTORY OF ALLERGY TO HEPARIN WITH HEPARIN-INDUCED THROMBOCYTOPENIA. Plan 1. Discharge later this afternoon 2. Follow-up in clinic next week 3. Encourage increased p.o. fluids Attending Statement The exam, history, and the medical decision-making described in the above note were completed with the assistance of the mid-level provider. I reviewed and agree with the findings presented. I attest that I had a [id number] encounter with the patient on the same day, and personally performed and documented my assessment and findings in the medical record. Sickle cell crisis improvement in pain Hb stable ok to d/c Dagmar Red Jul 13, 2017 09:19 Grant Santiago MD Jul 13, 2017 13:28
[2017-07-13 11:27] VITALS: BP 125/81; PULSE 88; RESP 18; TEMP 98.7; O2SAT 98
--- NOTE | 2017-07-13 14:29 | HHI.DCPOC ---
Discharge Care Plan Diagnosis: (1) Sickle cell crisis Your Health Problems Are: Anxiety Goals to Promote Your Health * To prevent worsening of your condition and complications * To maintain your health at the optimal level Directions to Meet Your Goals Take your medications as prescribed Follow your dietary instruction Follow activity as directed Keep your appointments as scheduled Take your immunizations and boosters as scheduled If your symptoms worsen call your PCP, if no PCP go to Urgent Care Center or Emergency Room Smoking is Dangerous to Your Health. Avoid second hand smoke Call the 24-hour hour crisis hotline for domestic abuse at Dagmar Red Jul 13, 2017 14:29
--- NOTE | 2017-07-13 14:32 | HHI.DS ---
Discharge Summary Admission Date Jul 10, 2017 at 13:18 Discharge Date: Jul 13, 2017 Admitting Diagnosis Sickle cell crisis Brief History Pt is a 56 y/o female with hx sickle cell thalassemia admitted with pain crisis. These types of crises for her are very infrequent. CBC/BMP: 07/12/17 0500 07/12/17 0500 Significant Findings Laboratory Tests Test 07/10/17 18:00 07/11/17 04:00 07/11/17 14:00 07/12/17 05:00 Red Blood Count 3.27 MIL/MM3 (4.00-5.30) 2.35 MIL/MM3 (4.00-5.30) 3.10 MIL/MM3 (4.00-5.30) Hemoglobin 7.6 GM/DL (11.6-15.3) 5.7 GM/DL (11.6-15.3) 8.4 GM/DL (11.6-15.3) 7.5 GM/DL (11.6-15.3) Hematocrit 22.7 % (35.0-46.0) 17.1 % (35.0-46.0) 25.5 % (35.0-46.0) 22.4 % (35.0-46.0) Mean Corpuscular Volume 69.4 FL (80.0-100.0) 72.7 FL (80.0-100.0) 72.5 FL (80.0-100.0) Mean Corpuscular Hemoglobin 23.3 PG (27.0-34.0) 24.2 PG (27.0-34.0) 24.3 PG (27.0-34.0) Red Cell Distribution Width 22.1 % (11.6-17.2) 23.3 % (11.6-17.2) 23.8 % (11.6-17.2) Platelet Count 116 TH/MM3 (150-450) 80 TH/MM3 (150-450) 99 TH/MM3 (150-450) Nucleated Red Blood Cells 2 /100 WBC (0-0) Platelet Estimate LOW (NORMAL) LOW (NORMAL) Platelet Morphology Comment ENLARGED (NORMAL) Basophilic Stippling MOD (NORMAL) FAINT (NORMAL) FAINT (NORMAL) Target Cells 1+ (NORMAL) 1+ (NORMAL) 2+ (NORMAL) Tear Drop Cells 1+ (NORMAL) 1+ (NORMAL) 2+ (NORMAL) Ovalocytes 1+ (NORMAL) 2+ (NORMAL) 1+ (NORMAL) Keratocytes OCC (NORMAL) OCC (NORMAL) 1+ (NORMAL) Aspartate Amino Transf (AST/SGOT) 60 U/L (15-37) 53 U/L (15-37) Total Bilirubin 2.0 MG/DL (0.2-1.0) 2.3 MG/DL (0.2-1.0) Chloride Level 108 MEQ/L (98-107) 113 MEQ/L (98-107) 110 MEQ/L (98-107) Estimat Glomerular Filtration Rate 84 ML/MIN (>89) 83 ML/MIN (>89) Troponin I LESS THAN 0.02 NG/ML Polychromasia 2.8 % (0.0-1.9) 2.4 % (0.0-1.9) Anion Gap 4 MEQ/L (5-15) Albumin 3.2 GM/DL (3.4-5.0) PE at Discharge See note dated 07/13/17. Hospital Course Patient was admitted on 07/10 under our service for an acute vaso-occlusive pain crises. The patient has been getting IV Dilaudid with IV fluids here in the hospital. Her hemoglobin was noted to be 5.7 on 07/11 and she was given 1 unit of packed red blood cells to increase her to 8.4. Her hemoglobin is back to her baseline today and she is clear for discharge. We will have her follow-up in the clinic next week. Pt Condition on Discharge: Good Discharge Disposition: Discharge Home Discharge Instructions DIET: Follow Instructions for: As Tolerated, No Restrictions Activities you can perform: Regular-No Restrictions Dagmar Red Jul 13, 2017 14:32
== END 2017-07-13 16:45 | disposition home or self-care (01) | DRG 812 ==
LOC: HCIN 13:18
PROVIDERS: ADMIT Internal Medicine Hematology & Oncology; ATTEND Internal Medicine Hematology & Oncology
PROC: 30243P1 Transfusion of Nonautologous Frozen Red Cells into Central Vein, Percutaneous Approach (ICD-10-PCS; principal; 2017-07-11)
DX: D57.419 Sickle-cell thalassemia, unspecified, with crisis (principal); D69.59 Other secondary thrombocytopenia; Z88.8 Allergy status to other drugs, medicaments and biological substances
CPT/HCPCS: 36430; 71045; 73060; 73090; 80048; 80053; 84484; 85007; 85014; 85018; 85025; 85027; 85660; 86850; 86900; 86901; 86902; 86920; 86921; 86922; 93005; 93971; J1170; J7030; J7050; P9016

== ENCOUNTER 2017-07-21 05:11 | Inpatient (IN) | payer MEDICARE ==
[2017-07-21] VITALS (10 sets, daily range): BP systolic 132–183; BP diastolic 59–88; PULSE 74–110; RESP 15–22; TEMP 98.2–99.8; O2SAT 97–100
[~2017-07-21] VITALS: Ht 168.9 cm; Wt 56.0 kg
[~2017-07-21 05:11] MED LIST changes: -HYDR500C PO; -MULT-135 PO
[2017-07-21] MEDS ORDERED: HYDROmorphone HCL PF 2 MG/ML VIAL IVS ONE (05:45)
[2017-07-21] MEDS ORDERED: diphenhydrAMINE HCL 50 MG/ML VIAL IV PUSH ONE (05:45)
[2017-07-21] MEDS ORDERED: PROCHLORPERAZINE INJ 10 MG/2 ML VIAL IV PUSH ONE (05:45)
--- NOTE | 2017-07-21 06:19 | RADRPT ---
EXAM DATE/TIME: 07/21/2017 05:46 [facility] COMPARISON: CHEST SINGLE AP, July 10, 2017, 15:20. INDICATIONS : Chest pain. MEDICAL HISTORY : Sickle Cell disease. Thrombocytopenia. Chronic anemia. Hyperbilirubinemia. SURGICAL HISTORY : Hysterectomy. Infusaport. ENCOUNTER: Initial ACUITY: 1 day PAIN SCORE: 10/10 LOCATION: Bilateral chest FINDINGS: A single view of the chest demonstrates the lungs to be symmetrically aerated without evidence of mas s, infiltrate or effusion. The cardiomediastinal contours are unremarkable. Osseous structures are intact. Right-sided Port-A-Cath. CONCLUSION: No acute disease. Horacio Galaviz Jr., MD on July 21, 2017 at 6:18 Board Certified Radiologist. This report was verified electronically.
[2017-07-21 06:22] LABS: HEMATOCRIT 28.9 % (35.0-46.0); HEMOGLOBIN 9.7 GM/DL (11.6-15.3); MEAN CELL VOLUME 68.8 FL (80.0-100.0); MEAN CORPUSCULAR HEMOGLOBIN 23.2 PG (27.0-34.0); MEAN CORPUSCULAR HGB CONC 33.7 % (32.0-36.0); MEAN PLATELET VOLUME 8.8 FL (7.0-11.0); PLATELET COUNT 181 TH/MM3 (150-450); RED BLOOD COUNT 4.21 MIL/MM3 (4.00-5.30); RED CELL DISTRIBUTION WIDTH 23.1 % (11.6-17.2); WHITE BLOOD COUNT 8.1 TH/MM3 (4.0-11.0)
[2017-07-21 06:35] LABS: BACTERIA, URINE OCC /hpf; BILIRUBIN, URINE NEG (NEG); BLOOD, URINE SMALL (NEG); GLUCOSE,URINE NEG (NEG); KETONE, URINE NEG (NEG); NITRITE,URINE NEG (NEG); RENAL EPITHELIAL CELLS <1 /hpf; SQUAMOUS EPITHELIAL CELL URINE <1 /hpf (0-5); URINE COLOR YELLOW (YELLW/STRAW); URINE LEUKOCYTE ESTERASE LARGE (NEG)
--- NOTE | 2017-07-21 06:38 | PD ---
HPI Chief Complaint: Chest Pain Time Seen by Provider: 05:32 Travel History International Travel<30 days: No Contact w/Intl Traveler<30days: No Traveled to known affect area: No History of Present Illness HPI This is a 56-year-old female with history of sickle cell disease, presents today with complaints of chest pain. Patient states it started at 11 PM last night. She reports that sharp and tingly. She says it came on suddenly. There is no reported shortness of breath. There is no reported fevers, chills. She denies any cough. She denies any urinary symptoms. She was just recently admitted to the hospital for sickle cell pain crisis. She reports that they did a transfusion at that time. PFSH Past Medical History Arthritis: Yes Blood Disorders: Yes Anxiety: No Depression: No Heart Rhythm Problems: Yes Cancer: No Cardiovascular Problems: Yes (IRREGULAR HEART BEAT, VALVE ISSUE) High Cholesterol: Yes Chemotherapy: No Chest Pain: Yes Diabetes: No Diminished Hearing: No Endocrine: No Gastrointestinal Disorders: Yes (IRRITABLE BOWEL SYNDROME IN PAST) GERD: No Genitourinary: No Hepatitis: No Hiatal Hernia: No Immune Disorder: No Implanted Vascular Access Dvce: Yes Kidney Stones: No Musculoskeletal: Yes (SICKLE CELL PAIN) Neurologic: Yes Psychiatric: No Reproductive: No Respiratory: Yes (HX PNEUMONIA) Immunizations Current: Yes Radiation Therapy: No Renal Failure: No Sickle Cell Disease: Yes Thyroid Disease: No Ulcer: No ?: Not : 2 Para: 2 Miscarriage: 0 Tubal Ligation: Yes Past Surgical History Abdominal Surgery: Yes (CHOLY) AICD: No Appendectomy: No Arteriovenous Shunt: No Body Medical Devices: PORT PLACEMENT RIGHT Cardiac Surgery: No Cholecystectomy: Yes Ear Surgery: No Endocrine Surgery: No Eye Surgery: No Genitourinary Surgery: No Gynecologic Surgery: Yes (TUBAL LIGATION , LASH) Hysterectomy: Yes Insulin Pump: No Joint Replacement: No Neurologic Surgery: No Oral Surgery: No Pacemaker: No Thoracic Surgery: Yes (PORT PLACEMENT RIGHT) Other Surgery: Yes (gallbladder, tubal ligatioin PORT PLACEMENT, LASH) Social History Alcohol Use: No Tobacco Use: No Substance Use: No Allergies-Medications (Allergen,Severity, Reaction): Coded Allergies: enoxaparin (Unverified Allergy, Severe, UNKNOWN REACTION, 07/09/17) pt states she has platlet count problems when heparin used to flush the infusaport heparin (porcine) (Unverified Allergy, Severe, UNKNOWN REACTION, 07/09/17) pt states she has platlet count problems when heparin used to flush the infusaport Reported Meds & Prescriptions Reported Meds & Active Scripts Active Reported Dilaudid (Hydromorphone HCl) 2 Mg Tab 4 Mg PO Q6H PRN Methadone (Methadone HCl) 10 Mg Tab 10 Mg PO TID Review of Systems Except as stated in HPI: all other systems reviewed are Neg General / Constitutional: No: Fever HENT: No: Headaches, Lightheadedness Cardiovascular: Positive: Chest Pain or Discomfort (Sharp in her ribs.), No: Palpitations Respiratory: No: Cough, Shortness of Breath Gastrointestinal: No: Nausea, Vomiting, Abdominal Pain Genitourinary: No: Frequency, Dysuria Musculoskeletal: No: Weakness, Pain Neurologic: No: Weakness, Dizziness, Headache Physical Exam Narrative GENERAL: Well-developed well-nourished female in no acute respiratory distress. SKIN: Focused skin assessment warm/dry. HEAD: Atraumatic. Normocephalic. EYES: Pupils equal and round. No scleral icterus. No injection or drainage. ENT: No nasal bleeding or discharge. Mucous membranes pink and moist. NECK: Trachea midline. Supple. CARDIOVASCULAR: Regular rate and rhythm. No murmur appreciated. RESPIRATORY: No accessory muscle use. No rales or rhonchi appreciated. GASTROINTESTINAL: Abdomen soft, non-tender, nondistended. Soft and thin. MUSCULOSKELETAL: No obvious deformities. No clubbing. No cyanosis. No edema. NEUROLOGICAL: Awake and alert. No obvious cranial nerve deficits. Motor grossly within normal limits. Normal speech. Data Data Last Documented VS Vital Signs Date Time Temp Pulse Resp B/P (MAP) Pulse Ox O2 Delivery O2 Flow Rate FiO2 07/21/17 06:39 105 15 136/70 (92) 100 Room Air 07/21/17 05:19 99.0 Orders Orders Electrocardiogram (07/21/17 05:32) Complete Blood Count With Diff (07/21/17 05:32) Ckmb (Isoenzyme) Profile (07/21/17 05:32) Troponin I (07/21/17 05:32) Ua Includes Microscopic (07/21/17 05:32) Chest, Single Ap (07/21/17 05:32) Iv Access Insert/Monitor (07/21/17 05:32) Ecg Monitoring (07/21/17 05:32) Oximetry (07/21/17 05:32) Diphenhydramine Inj (Benadryl Inj) (07/21/17 05:45) Hydromorphone Pf Inj (Dilaudid Pf Inj) (07/21/17 05:45) Prochlorperazine Inj (Compazine Inj) (07/21/17 05:45) Blood Culture (07/21/17 05:44) Retic Count (07/21/17 06:04) Ceftriaxone Inj (Rocephin Inj) (07/21/17 07:00) Labs Laboratory Tests Test 07/21/17 05:40 07/21/17 06:05 White Blood Count 8.1 TH/MM3 Red Blood Count 4.21 MIL/MM3 Hemoglobin 9.7 GM/DL Hematocrit 28.9 % Mean Corpuscular Volume 68.8 FL Mean Corpuscular Hemoglobin 23.2 PG Mean Corpuscular Hemoglobin Concent 33.7 % Red Cell Distribution Width 23.1 % Platelet Count 181 TH/MM3 Mean Platelet Volume 8.8 FL CBC Comment AUTO DIFF Reticulocyte Count 4.3 % Absolute Reticulocyte Count 180.5 MIL/L Total Creatine Kinase 29 U/L Troponin I LESS THAN 0.02 NG/ML Urine Color YELLOW Urine Turbidity CLEAR Urine pH 7.0 Urine Specific [place] 1.008 Urine Protein NEG mg/dL Urine Glucose (UA) NEG mg/dL Urine Ketones NEG mg/dL Urine Occult Blood SMALL Urine Nitrite NEG Urine Bilirubin NEG Urine Urobilinogen LESS THAN 2.0 MG/DL Urine Leukocyte Esterase LARGE Urine RBC 2 /hpf Urine WBC 25 /hpf Urine Squamous Epithelial Cells <1 /hpf Urine Renal Epithelial Cells <1 /hpf Urine Bacteria OCC /hpf MDM Medical Decision Making Medical Screen Exam Complete: Yes Emergency Medical Condition: Yes Differential Diagnosis Sickle cell pain crisis versus UTI versus pulmonary infection. Narrative Course 56-year-old female with history of sickle cell disease, presents today with complaint of chest pain. Patient has a UTI. She has been started on Rocephin 1 dose. She has been medicated with Dilaudid and Compazine and given IV fluids. She will be signed out to the physician replaced me at change of shift. If her pain is adequately controlled after IV antibiotics, I believe she can safely be discharged with oral antibiotics. Otherwise she could be admitted for observation for pain control. Diagnosis Primary Impression: Chest pain Additional Impressions: Sickle cell disease Urinary tract infection Tang Gómez MD Jul 21, 2017 06:38
[2017-07-21 06:44] LABS: TROPONIN I LESS THAN 0.02 NG/ML (0.02-0.05)
[2017-07-21 06:58] LABS: RETIC # 180.5 MIL/L (20.0-150.0); RETIC % 4.3 % (0.4-3.0)
[2017-07-21] MEDS ORDERED: cefTRIAXone INJ 1,000 MG in SODIUM CHLORIDE 0.9% INJ 100 ML IV ONE (07:00)
--- NOTE | 2017-07-21 07:16 | PD ---
Physical Exam Narrative Received sign out from previous team to reevaluate patient. 56yo F with sickle cell disease here with her usual crisis. Said she always has chest pain during her crisis. Denies any sob. Labs reviewed, no leukocytosis. H/H is 9.7/28.9 which is better than her baseline. Pt does not need transfusion. Troponin negative. CXR negative. UA showed large leukocyte. WBC 25. Pt given ceftriaxone for UTI. Pt was given compazine, diphenhydramine and hydromorphone 2mg IV by previous team with some improvement of pain. Pt still complaining of lots of pain so given another dose of pain medication and NS IVF. Pt reevaluated at bedside and is still in a lot of pain. Pt given another dose of 1mg dilaudid IV. If pain does not improve, will admit for intractable pain secondary to vasoocclusive crisis. Although pt' s chest pain feels like her usual sickle cell, she does have some EKG changes compare to prior so will also trend cardiac enzymes and EKG. Data Data Last Documented VS Vital Signs Date Time Temp Pulse Resp B/P (MAP) Pulse Ox O2 Delivery O2 Flow Rate FiO2 07/21/17 08:34 16 07/21/17 08:03 98 132/69 (90) 99 Room Air 07/21/17 05:19 99.0 Orders Orders Electrocardiogram (07/21/17 05:32) Complete Blood Count With Diff (07/21/17 05:32) Ckmb (Isoenzyme) Profile (07/21/17 05:32) Troponin I (07/21/17 05:32) Ua Includes Microscopic (07/21/17 05:32) Chest, Single Ap (07/21/17 05:32) Iv Access Insert/Monitor (07/21/17 05:32) Ecg Monitoring (07/21/17 05:32) Oximetry (07/21/17 05:32) Diphenhydramine Inj (Benadryl Inj) (07/21/17 05:45) Hydromorphone Pf Inj (Dilaudid Pf Inj) (07/21/17 05:45) Prochlorperazine Inj (Compazine Inj) (07/21/17 05:45) Blood Culture (07/21/17 05:44) Retic Count (07/21/17 06:04) Ceftriaxone Inj (Rocephin Inj) (07/21/17 07:00) Sodium Chlor 0.9% 1000 Ml Inj (Ns 1000 M (07/21/17 07:30) Hydromorphone Pf Inj (Dilaudid Pf Inj) (07/21/17 08:15) Hydromorphone Pf Inj (Dilaudid Pf Inj) (07/21/17 09:00) Labs Laboratory Tests Test 07/21/17 05:40 07/21/17 06:05 White Blood Count 8.1 TH/MM3 Red Blood Count 4.21 MIL/MM3 Hemoglobin 9.7 GM/DL Hematocrit 28.9 % Mean Corpuscular Volume 68.8 FL Mean Corpuscular Hemoglobin 23.2 PG Mean Corpuscular Hemoglobin Concent 33.7 % Red Cell Distribution Width 23.1 % Platelet Count 181 TH/MM3 Mean Platelet Volume 8.8 FL CBC Comment AUTO DIFF Differential Total Cells Counted 100 Neutrophils % (Manual) 74 % Band Neutrophils % 7 % Lymphocytes % 15 % Monocytes % 2 % Eosinophils % 2 % Neutrophils # (Manual) 6.6 TH/MM3 Nucleated Red Blood Cells 1 /100 WBC Differential Comment FINAL DIFF MANUAL Atypical Lymphocytes % Platelet Estimate NORMAL Platelet Morphology Comment NORMAL Polychromasia 2.0 % Target Cells 1+ Tear Drop Cells 1+ Ovalocytes 1+ Acanthocytes 1+ Keratocytes 1+ Reticulocyte Count 4.3 % Absolute Reticulocyte Count 180.5 MIL/L Total Creatine Kinase 29 U/L Troponin I LESS THAN 0.02 NG/ML Urine Color YELLOW Urine Turbidity CLEAR Urine pH 7.0 Urine Specific [place] 1.008 Urine Protein NEG mg/dL Urine Glucose (UA) NEG mg/dL Urine Ketones NEG mg/dL Urine Occult Blood SMALL Urine Nitrite NEG Urine Bilirubin NEG Urine Urobilinogen LESS THAN 2.0 MG/DL Urine Leukocyte Esterase LARGE Urine RBC 2 /hpf Urine WBC 25 /hpf Urine Squamous Epithelial Cells <1 /hpf Urine Renal Epithelial Cells <1 /hpf Urine Bacteria OCC /hpf MDM Supervised Visit with MARIMAR: No Interpretation(s) EKG: Sinus tachycardia at 106bpm. Normal axis. TWI V3-V6 is new from 07/10/17. Also mild ST depression and TWI II, III, aVF that is new. Diagnosis Primary Impression: Chest pain Qualified Codes: R07.9 - Chest pain, unspecified Additional Impressions: Urinary tract infection Qualified Codes: N39.0 - Urinary tract infection, site not specified; R31.9 - Hematuria, unspecified Sickle cell disease Qualified Codes: D57.00 - Hb-SS disease with crisis, unspecified Admitting Information Admitting Physician Requests: Pamela Rodriguez DO Jul 21, 2017 07:16
[2017-07-21] MEDS ORDERED: SODIUM CHLOR 0.9% 1000 ML INJ 1,000 ML IV ONE (07:30)
[2017-07-21] MEDS ORDERED: HYDROmorphone HCL PF 1 MG/ML VIAL IV PUSH ONE ×2 (07:30→09:00)
[2017-07-21 07:31] LABS: BANDS 7 % (0-6); CORRECTED NUCLEATED RBC 1 /100 WBC (0-0); LYMPHOCYTES 15 % (9-44); MONOCYTES 2 % (0-8); NEUTROPHIL # MANUAL DIFF 6.6 TH/MM3 (1.8-7.7); NUCLEATED RED BLOOD CELL 1 (0-0); POLYS (SEG NEUTROPHILS) 74 % (16-70)
[2017-07-21 07:32] LABS: ACANTHOCYTES 1+ (NORMAL); KERATOCYTES 1+ (NORMAL); OVALOCYTES 1+ (NORMAL); TARGET CELLS 1+ (NORMAL); TEARDROP RBCS 1+ (NORMAL)
[2017-07-21] MEDS ORDERED: HYDROmorphone HCL PF 2 MG/ML VIAL IV PUSH ONE (08:15)
[2017-07-21] MEDS ORDERED: SODIUM CHLORIDE 0.9% FLUSH 10 ML FLUSH IV FLUSH PRN (09:15)
[2017-07-21] MEDS ORDERED: ONDANSETRON HCL 4 MG/2 ML VIAL IV PUSH PRN (09:15)
[2017-07-21] MEDS ORDERED: diphenhydrAMINE HCL 25 MG CAP PO PRN (09:15)
[2017-07-21] MEDS ORDERED: MORPHINE SULFATE 2 MG/ML SYRINGE IV PUSH PRN (09:15)
[2017-07-21] MEDS ORDERED: RESP: ALBUTEROL 2.5 MG/3 ML NEB (PRN) INH (09:15)
[2017-07-21] MEDS ORDERED: SODIUM CHLOR 0.9% 1000 ML INJ 1,000 ML IV SCH (10:00)
[2017-07-21] MEDS: DOCUSATE SODIUM 50 MG/SENNA 8.6 MG TAB PO SCH ×2 (10:00→19:47)
--- NOTE | 2017-07-21 10:26 | HHI.HP ---
[facility] Primary Care Physician Earl Castro MD Admission Diagnosis Chest pain r/o ACS, sickle cell crisis, intractable pain Diagnoses: Travel History International Travel<30 Days: No Contact w/Intl Traveler <30 Da: No Traveled to Known Affected Are: No History of Present Illness 56 YOAAF with sickle cell thalassemia presenting with acute onset 10 out of 10 pain in the back of her arms and in the center of her chest. She describes the pain as dull and throbbing but states it can also be sharp at times. The quality of her pain is very similar to prior episodes. She denies associated lightheadedness, dizziness, palpitations, or diaphoresis. Pain does not radiate into her jaw. She follows with Dr. Chin monthly. She was admitted for pain crisis on 07/[address] Chin's office. She was treated with IV fluids, pain control, and 1 unit packed RBCs. She states she typically takes hydroxyurea but has been out of it for the past week. She denies fever, chills, cough, or recently illness. She denies urinary symptoms. Review of Systems Constitutional: DENIES: Fever, Chills, Dizziness, Night Sweats Endocrine: DENIES: Polydipsia Eyes: DENIES: Blurred vision, Diplopia Respiratory: DENIES: Cough, Hemoptysis, Shortness of breath Cardiovascular: COMPLAINS OF: Chest pain, DENIES: Palpitations, Syncope, Lower Extremity Edema Gastrointestinal: DENIES: Abdominal pain, Black stools, Bloody stools, Diarrhea , Nausea, Vomiting Genitourinary: DENIES: Hematuria, Dysuria Musculoskeletal: COMPLAINS OF: Joint pain Integumentary: DENIES: Rash Hematologic/lymphatic: DENIES: Bruising Neurologic: DENIES: Headache Past Family Social History Past Medical History Sickle cell thalassemia Past Surgical History Partial hysterectomy Cholecystectomy Tubal ligation Reported Medications Dilaudid (Hydromorphone HCl) 2 Mg Tab 4 Mg PO Q6H PRN Methadone (Methadone HCl) 10 Mg Tab 10 Mg PO BID Allergies: Coded Allergies: enoxaparin (Unverified Allergy, Severe, UNKNOWN REACTION, 4/10/18) pt states she has platlet count problems when heparin used to flush the infusaport heparin (porcine) (Unverified Allergy, Severe, UNKNOWN REACTION, 07/09/17) pt states she has platlet count problems when heparin used to flush the infusaport Active Ordered Medications Acetaminophen (Tylenol) 650 mg Q4H PRN PO; Start 07/21/17 at 09:15 Albuterol Sulfate (Albuterol Neb) 2.5 mg Q2HR NEB PRN INH; Start 07/21/17 at 09 :15 Ceftriaxone Sodium 1000 mg/ Sodium Chloride 100 ml @ 200 mls/hr ONCE ONCE IV Last administered on 07/21/17at 07:00; Admin Dose 200 MLS/HR; Start 07/21/17 at 07:00; Stop 07/21/17 at 07:29; Status DC Diphenhydramine HCl (Benadryl Inj) 50 mg ONCE ONCE IV PUSH Last administered on 07/21/17at 06:01; Admin Dose 50 MG; Start 07/21/17 at 05:45; Stop 07/21/17 at 05:46; Status DC Diphenhydramine HCl (Benadryl) 25 mg Q4H PRN PO; Start 07/21/17 at 09:15 Docusate Sodium (Colace) 100 mg BID PO; Start 07/21/17 at 21:00; Stop 07/21/17 at 21:00; Status DC Folic Acid (Folate) 1 mg DAILY PO; Start 07/22/17 at 09:00 Hydromorphone HCl (Dilaudid Pf Inj) 1 mg ONCE ONCE IV PUSH; Start 07/21/17 at 07:30; Stop 07/21/17 at 07:31; Status Cancel Hydromorphone HCl (Dilaudid Pf Inj) 1 mg ONCE ONCE IV PUSH Last administered on 07/21/17at 08:14; Admin Dose 1 MG; Start 07/21/17 at 08:15; Stop 07/21/17 at 08:16; Status DC Hydromorphone HCl (Dilaudid Pf Inj) 1 mg ONCE ONCE IV PUSH; Start 07/21/17 at 09:00; Stop 07/21/17 at 09:01; Status DC Hydromorphone HCl (Dilaudid Pf Inj) 1 mg Q4H PRN IV PUSH; Start 07/21/17 at 09: 15 Hydromorphone HCl (Dilaudid Pf Inj) 2 mg ONCE ONCE IVS Last administered on at 06:01; Admin Dose 2 MG; Start 07/21/17 at 05:45; Stop 07/21/17 at 05:46 ; Status DC Hydromorphone HCl (Dilaudid Pf Inj) 2 mg Q4H PRN IV PUSH; Start 07/21/17 at 09: 15 Magnesium Hydroxide (Milk Of Magnesia Liq) 30 ml Q6H PRN PO; Start 07/21/17 at 09:15 Methadone HCl (Dolophine) 10 mg TID PO; Start 07/21/17 at 13:00 Morphine Sulfate (Morphine Inj) 2 mg Q4H PRN IV PUSH; Start 07/21/17 at 09:15 Multivitamins (Theragran) 1 tab DAILY PO; Start 07/22/17 at 09:00 Ondansetron HCl (Zofran Inj) 4 mg Q6H PRN IV PUSH; Start 07/21/17 at 09:15 Prochlorperazine Edisylate (Compazine Inj) 10 mg ONCE ONCE IV PUSH Last administered on 07/21/17at 06:01; Admin Dose 10 MG; Start 07/21/17 at 05:45; Stop 07/21/17 at 05:46; Status DC Senna/Docusate Sodium (Chelsey-Colace) 1 tab BID PO; Start 07/21/17 at 10:00 Sodium Chloride 1,000 ml @ 100 mls/hr Q10H IV Last administered on 07/21/17at 09 :58; Admin Dose 100 MLS/HR; Start 07/21/17 at 10:00 Sodium Chloride 1,000 ml @ 999 mls/hr BOLUS ONCE IV Last administered on at 07:30; Admin Dose 999 MLS/HR; Start 07/21/17 at 07:30; Stop 07/21/17 at 08: 30; Status DC Sodium Chloride (NS Flush) 2 ml BID IV FLUSH; Start 07/21/17 at 21:00 Sodium Chloride (NS Flush) 2 ml UNSCH PRN IV FLUSH; Start 07/21/17 at 09:15 Family History Parents with sickle cell trait otherwise no known medical problems Social History Lives with son Denies EtOH, tobacco, or illicit drugs Physical Exam Vital Signs Vital Signs Date Time Temp Pulse Resp B/P (MAP) Pulse Ox O2 Delivery O2 Flow Rate FiO2 07/21/17 08:34 16 07/21/17 08:03 98 16 132/69 (90) 99 Room Air 07/21/17 06:39 105 15 136/70 (92) 100 Room Air 07/21/17 06:09 17 100 Room Air 07/21/17 05:19 99.0 110 22 183/88 (119) 97 Room Air Physical Exam GENERAL: Well-nourished, well-developed female in obvious discomfort. SKIN: No rashes, ecchymoses or lesions. Cool and dry. HEAD: Atraumatic. Normocephalic. No temporal or scalp tenderness. EYES: Pupils equal round and reactive. Extraocular motions intact. No scleral icterus. No injection or drainage. ENT: Nose without bleeding, purulent drainage or septal hematoma. Throat without erythema, tonsillar hypertrophy or exudate. Uvula midline. Airway patent. NECK: Trachea midline. No JVD or lymphadenopathy. Supple, nontender, no meningeal signs. CARDIOVASCULAR: Regular rate and rhythm with 2/6 systolic ejection murmur. RESPIRATORY: Clear to auscultation. Breath sounds equal bilaterally. No wheezes , rales, or rhonchi. GASTROINTESTINAL: Abdomen soft, non-tender, nondistended. No hepatosplenomegaly or palpable masses. No guarding. MUSCULOSKELETAL: Extremities without clubbing, cyanosis, or edema. No joint tenderness, effusion, or edema noted. No calf tenderness. Negative Homans sign bilaterally. Pain over chest and arms when palpated. NEUROLOGICAL: Awake and alert. Motor and sensory grossly within normal limits. Normal speech. Laboratory Laboratory Tests Test 07/21/17 05:40 07/21/17 06:05 White Blood Count 8.1 Red Blood Count 4.21 Hemoglobin 9.7 Hematocrit 28.9 Mean Corpuscular Volume 68.8 Mean Corpuscular Hemoglobin 23.2 Mean Corpuscular Hemoglobin Concent 33.7 Red Cell Distribution Width 23.1 Platelet Count 181 Mean Platelet Volume 8.8 CBC Comment AUTO DIFF Differential Total Cells Counted 100 Neutrophils % (Manual) 74 Band Neutrophils % 7 Lymphocytes % 15 Monocytes % 2 Eosinophils % 2 Neutrophils # (Manual) 6.6 Nucleated Red Blood Cells 1 Differential Comment FINAL DIFF MANUAL Atypical Lymphocytes Platelet Estimate NORMAL Platelet Morphology Comment NORMAL Polychromasia 2.0 Target Cells 1+ Tear Drop Cells 1+ Ovalocytes 1+ Acanthocytes 1+ Keratocytes 1+ Reticulocyte Count 4.3 Absolute Reticulocyte Count 180.5 Total Creatine Kinase 29 Troponin I LESS THAN 0.02 Urine Color YELLOW Urine Turbidity CLEAR Urine pH 7.0 Urine Specific [place] 1.008 Urine Protein NEG Urine Glucose (UA) NEG Urine Ketones NEG Urine Occult Blood SMALL Urine Nitrite NEG Urine Bilirubin NEG Urine Urobilinogen LESS THAN 2.0 Urine Leukocyte Esterase LARGE Urine RBC 2 Urine WBC 25 Urine Squamous Epithelial Cells <1 Urine Renal Epithelial Cells <1 Urine Bacteria OCC Date/Time Source Procedure Growth Status 07/21/17 05:50 Blood Peripheral Aerobic Blood Culture Pending Received 07/21/17 05:50 Blood Peripheral Anaerobic Blood Culture Pending Received Result Diagram: 07/21/17 0540 Imaging Chest X-Ray 07/21/17 0532 Signed Impressions: Service Date/Time: Friday, July 21, 2017 05:46 - CONCLUSION: No acute disease. Horacio Galaviz Jr., MD [place] VTE Risk Assessment [place] VTE Risk Assessment: Mod/High Risk (score >= 2) Caprini Risk Assessment Model Point Value = 1 Point Value = 2 Point Value = 3 Point Value = 5 Age 41-60 Minor surgery BMI > 25 kg/m2 Swollen legs Varicose veins or History of unexplained or recurrent spontaneous Oral contraceptives or hormone replacement Sepsis (< 1 month) Serious lung disease, including pneumonia (< 1 month) Abnormal pulmonary function Acute myocardial infarction Congestive heart failure (< 1 month) History of inflammatory bowel disease Medical patient at bed rest Age 61-74 Arthroscopic surgery Major open surgery (> 45 min) Laparoscopic surgery (> 45 min) Malignancy Confined to bed (> 72 hours) Immobilizing plaster cast Central venous access Age >= 75 History of VTE Family history of VTE Factor V Leiden Prothrombin [id number] Lupus anticoagulant Anticardiolipin antibodies Elevated serum homocysteine Heparin-induced thrombocytopenia Other congenital or acquired thrombophilia Stroke (< 1 month) Elective arthroplasty Hip, pelvis, or leg fracture Acute spinal cord injury (< 1 month) Prophylaxis Regimen Total Risk Factor Score Risk Level Prophylaxis Regimen 0-1 Low Early ambulation 2 Moderate Order ONE of the following: *Sequential Compression Device (SCD) *Heparin 5000 units SQ BID 3-4 Higher Order ONE of the following medications: *Heparin 5000 units SQ TID *Enoxaparin/Lovenox 40 mg SQ daily (WT < 150 kg, CrCl > 30 mL/min) *Enoxaparin/Lovenox 30 mg SQ daily (WT < 150 kg, CrCl > 10-29 mL/min) *Enoxaparin/Lovenox 30 mg SQ BID (WT < 150 kg, CrCl > 30 mL/min) AND/OR *Sequential Compression Device (SCD) 5 or more Highest Order ONE of the following medications: *Heparin 5000 units SQ TID (Preferred with Epidurals) *Enoxaparin/Lovenox 40 mg SQ daily (WT < 150 kg, CrCl > 30 mL/min) *Enoxaparin/Lovenox 30 mg SQ daily (WT < 150 kg, CrCl > 10-29 mL/min) *Enoxaparin/Lovenox 30 mg SQ BID (WT < 150 kg, CrCl > 30 mL/min) AND *Sequential Compression Device (SCD) Assessment and Plan Problem List: (1) Sickle cell crisis ICD Code: D57.00 - Hb-SS disease with crisis, unspecified Status: Acute (2) Chest pain ICD Code: R07.9 - Chest pain, unspecified Status: Acute Assessment and Plan 56 YOAAF with sickle cell thalassemia admitted for acute vasoocclusive crisis. 1. Sickle cell vasoocclusive crisis - Recently admitted for crisis on 07/10-07/[address] Chin - Hemoglobin stable at 9.7 (was 7.5 on discharge last admission and she had been transfused 1 unit PRBC) - Pain control - IV fluids - Supplemental O2 - Consult hematology since known to Dr. Chin and she was recently admitted 2. Chest pain - Pt states quality is similar to prior vasoocclusive episodes but EKG showing T wave inversion in leads V4-V6 new from prior EKG on 07/10 - Initial troponin negative - Trend troponins - Repeat EKG - Consult cardiology if any concerning findings DVT prophylaxis: allergic to Lovenox and Heparin and patient with history of HIT Physician Certification 2 Midnight Certification Type: Admission for Inpatient Services Order for Inpatient Services The services are ordered in accordance with Medicare regulations or non- Medicare payer requirements, as applicable. In the case of services not specified as inpatient-only, they are appropriately provided as inpatient services in accordance with the 2-midnight benchmark. Estimated LOS (days): 2 2 days is the estimated time the patient will need to remain in the hospital, assuming treatment plan goals are met and no additional complications. Post-Hospital Plan: Home Problem Qualifiers (1) Chest pain: Qualified Codes: R07.9 - Chest pain, unspecified Tanisha Gay MD Jul 21, 2017 10:26
[2017-07-21] MEDS: HYDROmorphone HCL PF 2 MG/ML VIAL IV PUSH PRN ×6 (12:21→23:56)
--- NOTE | 2017-07-21 13:49 | PD.CONS ---
History of Present Illness Service Hematology Consult Requested By Hospitalist service Reason for Consult Hemoglobin sickle cell/beta 0 thalassemia. Pain crisis secondary to vaso-occlusive disease. Primary Care Physician Earl Castro MD Diagnoses: (1) Sickle cell disease History of Present Illness Chief Complaint: 24 hour period of pain involving the arms and ribs. Not responding to oral analgesics at home. History of presenting illness: Ms. Vergara is a very pleasant 56-year-old female with a diagnosis of hemoglobin sickle cell/beta 0 thalassemia. She is under the care of my associate Dr. Pema Chin in the outpatient setting. The patient has been on disease modifying therapy with hydroxyurea 500 mg daily for the past approximately 1 month and over this period time she has also required a red cell exchange transfusion for management of pain crisis. Her most recent plasma exchange was about 2 weeks ago. The patient reports developing pain in her arms yesterday, she tried apply warm compresses and took all pain medications, her symptoms did not improve but in fact progressed. She then developed pain in her ribs. She reports having difficulty breathing especially when she takes in a deep breath. Earlier today she decided to come into the emergency department for further workup and management. She has been admitted to the hospital after successive doses of IV pain medications were not sufficient enough to control her pain. The hematology service is been asked to see her to help further manage her symptoms. Her symptoms at this point are uncomplicated by fevers, hypoxia or abnormal imaging findings on chest x-ray to suggest acute chest syndrome. Review of Systems Constitutional: COMPLAINS OF: Fatigue, DENIES: Diaphoretic episodes, Fever, Weight gain, Weight loss, Chills, Dizziness, Change in appetite, Night Sweats Endocrine: COMPLAINS OF: Abnorml menstrual pattern (Postmenopausal), DENIES: Heat/cold intolerance, Polydipsia, Polyuria, Polyphagia Eyes: DENIES: Blurred vision, Diplopia, Eye inflammation, Eye pain, Vision loss , Photosensitivity, Double Vision Ears, nose, mouth, throat: DENIES: Tinnitus, Hearing loss, Vertigo, Nasal discharge, Oral lesions, Throat pain, Hoarseness, Ear Pain, Running Nose, Epistaxis, Sinus Pain, Toothache, Odynophagia Respiratory: COMPLAINS OF: Shortness of breath, DENIES: Apneas, Cough, Snoring , Wheezing, Hemoptysis, Sputum production Cardiovascular: COMPLAINS OF: Chest pain, Palpitations, Dyspnea on Exertion, DENIES: Syncope, PND, Lower Extremity Edema, Orthopnea, Claudication Gastrointestinal: COMPLAINS OF: Anorexia (Since being crisis started), DENIES: Abdominal pain, Black stools, Bloody stools, Constipation, Diarrhea, Nausea, Vomiting, Difficulty Swallowing Genitourinary: DENIES: Abnormal vaginal bleeding, Dysmenorrhea, Dyspareunia, Sexual dysfunction, Urinary frequency, Urinary incontinence, Urgency, Hematuria , Dysuria, Nocturia, Vaginal discharge Musculoskeletal: COMPLAINS OF: Joint pain, Back pain, DENIES: Muscle aches, Stiffness, Joint Swelling, Neck pain Integumentary: DENIES: Abnormal pigmentation, Pruritus, Rash, Nail changes, Breast masses, Breast skin changes, Nipple discharge Hematologic/lymphatic: DENIES: Bruising, Lymphadenopathy Immunologic/allergic: DENIES: Eczema, Urticaria Neurologic: DENIES: Abnormal gait, Headache, Localized weakness, Paresthesias, Seizures, Speech Problems, Tremor, Poor Balance Psychiatric: DENIES: Anxiety, Confusion, Mood changes, Depression, Hallucinations, Agitation, Suicidal Ideation, Homicidal Ideation, Delusions Except as stated in HPI: all other systems reviewed are Neg Past Family Social History Allergies: Coded Allergies: enoxaparin (Unverified Allergy, Severe, UNKNOWN REACTION, 07/09/17) pt states she has platlet count problems when heparin used to flush the infusaport heparin (porcine) (Unverified Allergy, Severe, UNKNOWN REACTION, 07/09/17) pt states she has platlet count problems when heparin used to flush the infusaport Past Medical History Hemoglobin sickle cell disease/beta 0 thalassemia. Pain crises. Chronic anemia. Hyperbilirubinemia Past Surgical History Tubal ligation Cholecystectomy Partial hysterectomy Dilatation and curettage Active Ordered Medications Ceftriaxone 1 g IV every 24 hours Normal saline 100 cc/h Acetaminophen 650 mg p.o. every 4 hours Albuterol nebulizer 2.5 mg inhaled every 2 hours as needed for wheezing Benadryl 25 g p.o. every 6 hours needed for itching Senna Colace 1 tablet p.o. twice daily Folic acid 1 mg once daily Hydromorphone 1 mg IV every 4 hours as needed for pain Methadone 10 mg p.o. 3 times daily Daily multivitamin Zofran 4 mg IV every 6 hours needed for nausea Promethazine 10 mg IV 1 Family History Parents with sickle cell trait. She has 1 son with sickle cell trait as well. 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 She reports being a lifelong non-smoker. She has 2 sons who are adults. She denies alcohol abuse. Physical Exam Vital Signs Vital Signs Date Time Temp Pulse Resp B/P (MAP) Pulse Ox O2 Delivery O2 Flow Rate FiO2 07/21/17 13:10 16 07/21/17 13:10 89 18 149/59 (89) 99 07/21/17 12:11 74 16 138/64 (88) 98 Room Air 07/21/17 10:09 100 21 07/21/17 08:34 16 07/21/17 08:03 98 16 132/69 (90) 99 Room Air 07/21/17 06:39 105 15 136/70 (92) 100 Room Air 07/21/17 06:09 17 100 Room Air 07/21/17 05:19 99.0 110 22 183/88 (119) 97 Room Air Physical Exam GENERAL: Middle-aged female, sitting up in bed, she appears to be in some pain, she is awake and alert. She converses in full sentences. SKIN: No rashes, ecchymoses or lesions. Cool and dry. HEAD: Atraumatic. Normocephalic. No temporal or scalp tenderness. EYES: Pupils equal round and reactive. Extraocular motions intact. Conjunctivae are mildly pale sclerae are mildly icteric. No injection or drainage. ENT: Nose without bleeding, purulent drainage or septal hematoma. Throat without erythema, tonsillar hypertrophy or exudate. Uvula midline. Airway patent. NECK: Trachea midline. No JVD or lymphadenopathy. Supple, nontender, no meningeal signs. CARDIOVASCULAR: Loud heart sounds, S1-S2 no obvious murmurs rubs gallops without evidence of tachycardia. RESPIRATORY: Good air movement bilaterally on posterior examination, no added rhonchi, crepitus or pleural rubs. GASTROINTESTINAL: Abdomen soft, non-tender, nondistended. No hepato-splenomegaly , or palpable masses. No guarding. Abdomen is thin and soft, no obvious organ enlargement. MUSCULOSKELETAL: Extremities without clubbing, cyanosis, or edema. No joint tenderness, effusion, or edema noted. No calf tenderness. Negative Homans sign bilaterally. NEUROLOGICAL: Awake and alert. Cranial nerves II through XII intact. Motor and sensory grossly within normal limits. Five out of 5 muscle strength in all muscle groups. Normal speech. Laboratory Laboratory Tests Test 07/21/17 05:40 07/21/17 06:05 07/21/17 11:54 White Blood Count 8.1 Red Blood Count 4.21 Hemoglobin 9.7 Hematocrit 28.9 Mean Corpuscular Volume 68.8 Mean Corpuscular Hemoglobin 23.2 Mean Corpuscular Hemoglobin Concent 33.7 Red Cell Distribution Width 23.1 Platelet Count 181 Mean Platelet Volume 8.8 CBC Comment AUTO DIFF Differential Total Cells Counted 100 Neutrophils % (Manual) 74 Band Neutrophils % 7 Lymphocytes % 15 Monocytes % 2 Eosinophils % 2 Neutrophils # (Manual) 6.6 Nucleated Red Blood Cells 1 Differential Comment FINAL DIFF MANUAL Atypical Lymphocytes Platelet Estimate NORMAL Platelet Morphology Comment NORMAL Polychromasia 2.0 Target Cells 1+ Tear Drop Cells 1+ Ovalocytes 1+ Acanthocytes 1+ Keratocytes 1+ Reticulocyte Count 4.3 Absolute Reticulocyte Count 180.5 Total Creatine Kinase 29 Troponin I LESS THAN 0.02 LESS THAN 0.02 Urine Color YELLOW Urine Turbidity CLEAR Urine pH 7.0 Urine Specific [place] 1.008 Urine Protein NEG Urine Glucose (UA) NEG Urine Ketones NEG Urine Occult Blood SMALL Urine Nitrite NEG Urine Bilirubin NEG Urine Urobilinogen LESS THAN 2.0 Urine Leukocyte Esterase LARGE Urine RBC 2 Urine WBC 25 Urine Squamous Epithelial Cells <1 Urine Renal Epithelial Cells <1 Urine Bacteria OCC Date/Time Source Procedure Growth Status 07/21/17 05:50 Blood Peripheral Aerobic Blood Culture Pending Received 07/21/17 05:50 Blood Peripheral Anaerobic Blood Culture Pending Received Result Diagram: 07/21/17 0540 Imaging Chest x-ray dated 07/21/2017: No acute disease noted, no pulmonary parenchymal infiltrates noted. Assessment and Plan Assessment and Plan Ms. Vergara is a 56-year-old female with a history of hemoglobin sickle cell disease/beta 0 thalassemia. She reports having a history of rare pain crises that necessitate hospitalizations, and her lifetime she is rarely required red cell transfusion. She tells me over the past month or so she has had 2 or 3 severe pain crises necessitating evaluation in the outpatient hematology clinic as well as a recent hospitalization. She was found to have severe anemia related to sickle cell disease earlier this month and underwent an exchange transfusion. She tells me she did respond to the exchange transfusion transiently but yesterday developed symptoms consistent with sickle cell related pain crisis. The pain initially started in her arms and then progressed to involve her ribs. Oral analgesic medications did not help, warm compresses did not help and she therefore came into the emergency department. In the emergency department she received IV opioid analgesic pain medication however her symptoms did not sufficiently respond. She was therefore admitted to the hospital for further pain control and supportive measures including IV fluid hydration and oxygen supplementation. Plan: Hemoglobin sickle cell disease with vaso-occlusive crisis uncomplicated by acute chest syndrome, acute stroke or avascular necrosis. Recommend supportive management with hypotonic IV fluid hydration. Oxygen supplementation. Incentive spirometry Analgesia with long and short acting opioids, she is on methadone at a dose of 10 mg p.o. 3 times daily this has been continued, she will receive IV hydromorphone for breakthrough pain. No indications for red cell transfusion exist at this time. She is on empiric antibiotic therapy which is also appropriate. Continue supportive care. Dr. Chin will return on 07/22/2017 to resume care. Problem Qualifiers (1) Sickle cell disease: Qualified Codes: D57.00 - Hb-SS disease with crisis, unspecified Davon Rosas MD Jul 21, 2017 13:49
[2017-07-21] MEDS: SODIUM CHLOR 0.45% 1000 ML INJ 1,000 ML IV SCH (14:00)
[2017-07-21] MEDS: METHADONE HCL 10 MG TAB PO SCH ×2 (14:05→17:29)
[2017-07-21] MEDS: FONDAPARINUX SODIUM 2.5 MG/0.5 ML SYRINGE SQ SCH (16:45)
[2017-07-21] MEDS: SODIUM CHLORIDE 0.9% FLUSH 10 ML FLUSH IV FLUSH SCH (19:46)
[2017-07-21] MEDS ORDERED: DOCUSATE SODIUM 100 MG CAP PO SCH (21:00)
--- NOTE | 2017-07-21 23:49 | EKG ---
Date Performed: 07/21/2017 Time Performed: 18:32:28 PTAGE: 56 years EKG: SINUS TACHYCARDIA WITH FREQUENT VENTRICULAR PREMATURE COMPLEXES/BIGEMINY NONSPECIFIC T-WAVE ABNORMALITY ABNORMAL RHYTHM ECG PREVIOUS TRACING : 07/21/2017 11.52 Compared to previous tracing, frequent PVCs/bigeminy now n oted DOCTOR: Nate Rogers Interpretating Date/Time 07/21/2017 23:48:33
[2017-07-22] VITALS (10 sets, daily range): BP systolic 131–165; BP diastolic 71–80; PULSE 86–101; RESP 17–20; TEMP 98.6–100.1; O2SAT 98–99
[2017-07-22] MEDS: SODIUM CHLOR 0.45% 1000 ML INJ 1,000 ML IV SCH ×3 (00:01→19:56)
--- NOTE | 2017-07-22 00:05 | EKG ---
Date Performed: 07/21/2017 Time Performed: 11:52:36 PTAGE: 56 years EKG: Sinus rhythm WITH OCCASIONAL VENTRICULAR PREMATURE COMPLEXES POSSIBLE LEFT ATRIAL ENLARGEMENT NONSPECIFIC T-WAVE ABNORMALITY BORDERLINE ECG Compared to PREVIOUS TRACING , rate has decreased, ST/T wave changes are less prominent DOCTOR: Nate Rogers Interpretating Date/Time 07/22/2017 00:03:43
--- NOTE | 2017-07-22 00:13 | EKG ---
Date Performed: 07/21/2017 Time Performed: 06:25:05 PTAGE: 56 years EKG: SINUS TACHYCARDIA POSSIBLE LEFT ATRIAL ENLARGEMENT MODERATE T-WAVE ABNORMALITY, CONSIDER AN TERIOR ISCHEMIA ABNORMAL ECG PREVIOUS TRACING : 07/10/2017 15.46 Compared to previous tracing, ST/T wave changes now noted DOCTOR: Nate Rogers Interpretating Date/Time 07/22/2017 00:12:46
[2017-07-22] MEDS: HYDROmorphone HCL PF 2 MG/ML VIAL IV PUSH PRN ×10 (01:56→22:14)
[2017-07-22 04:50] LABS: BICARBONATE 26.8 MEQ/L (21.0-32.0); CALCIUM 9.3 MG/DL (8.5-10.1); CREATININE 0.71 MG/DL (0.50-1.00)
[2017-07-22 05:02] LABS: HEMATOCRIT 25.4 % (35.0-46.0); HEMOGLOBIN 8.6 GM/DL (11.6-15.3); MEAN CELL VOLUME 69.3 FL (80.0-100.0); MEAN CORPUSCULAR HEMOGLOBIN 23.3 PG (27.0-34.0); MEAN CORPUSCULAR HGB CONC 33.7 % (32.0-36.0); MEAN PLATELET VOLUME 9.6 FL (7.0-11.0); PLATELET COUNT 159 TH/MM3 (150-450); RED BLOOD COUNT 3.67 MIL/MM3 (4.00-5.30); RED CELL DISTRIBUTION WIDTH 22.4 % (11.6-17.2); WHITE BLOOD COUNT 6.8 TH/MM3 (4.0-11.0)
[2017-07-22 07:56] LABS: BANDS 6 % (0-6); CORRECTED NUCLEATED RBC 3 /100 WBC (0-0); LYMPHOCYTES 16 % (9-44); MONOCYTES 4 % (0-8); NEUTROPHIL # MANUAL DIFF 5.4 TH/MM3 (1.8-7.7); NUCLEATED RED BLOOD CELL 3 (0-0); POLYS (SEG NEUTROPHILS) 73 % (16-70)
[2017-07-22 07:57] LABS: ACANTHOCYTES 1+ (NORMAL); KERATOCYTES 1+ (NORMAL); OVALOCYTES 1+ (NORMAL); TARGET CELLS 1+ (NORMAL); TEARDROP RBCS 1+ (NORMAL)
[2017-07-22] MEDS: METHADONE HCL 10 MG TAB PO SCH ×3 (08:42→18:21)
[2017-07-22] MEDS: DOCUSATE SODIUM 50 MG/SENNA 8.6 MG TAB PO SCH ×2 (08:42→20:13)
[2017-07-22] MEDS: MULTIVITAMIN TAB PO SCH (08:43)
[2017-07-22] MEDS: FOLIC ACID 1 MG TAB PO SCH (08:43)
[2017-07-22] MEDS: MAGNESIUM HYDROXIDE SUSP 30 ML CUP PO PRN (08:48)
[2017-07-22] MEDS ORDERED: cefTRIAXone INJ 1,000 MG in SODIUM CHLORIDE 0.9% INJ 100 ML IV SCH (09:00)
[2017-07-22] MEDS: SODIUM CHLORIDE 0.9% FLUSH 10 ML FLUSH IV FLUSH SCH ×2 (09:00→20:15)
--- NOTE | 2017-07-22 09:22 | HHI.PR ---
Subjective Remarks Pt seen and examined. VS reviewed. Pt reports continued pain in her chest and ribs but controlled with pain medications. Denies fever, chills, SOB, abdominal pain, N/V. Tolerating PO. Ambulating. Objective Vital Signs Date Time Temp Pulse Resp B/P (MAP) Pulse Ox O2 Delivery O2 Flow Rate FiO2 07/22/17 08:06 98.9 97 17 137/71 (93) 99 07/22/17 04:00 86 07/22/17 04:00 Room Air 07/22/17 04:00 98.9 98 18 165/80 (108) 98 07/22/17 00:00 98.8 97 18 131/73 (92) 98 07/22/17 00:00 101 07/21/17 20:00 Room Air 07/21/17 20:00 95 07/21/17 20:00 98.2 103 18 148/76 (100) 97 07/21/17 18:09 98 Room Air 07/21/17 18:09 95 07/21/17 16:00 99.8 93 15 152/77 (102) 98 07/21/17 15:51 99 Room Air 07/21/17 13:10 16 07/21/17 13:10 89 18 149/59 (89) 99 07/21/17 12:11 74 16 138/64 (88) 98 Room Air 07/21/17 10:09 100 21 I/O 07/21/17 07/21/17 07/21/17 07/22/17 07/22/17 07/22/17 07:00 15:00 23:00 07:00 15:00 23:00 Intake Total 240 ml 1899 ml Balance 240 ml 1899 ml Intake Oral 240 ml 300 ml IV Total 1599 ml # Voids 1 Result Diagram: 07/22/1740907/22/17 0410 Objective Remarks GENERAL: WN, WD female resting in bed in [facility]. SKIN: Warm and dry. HEENT: AT/NC. Pupils equal and round. Sclera mildly icteric. MMM. NECK: Supple no tender LAD or JVD. CHEST: Chest wall TTP. HEART: Tachycardic with 2/6 EVELIO. LUNGS: CTAB without wheezes or crackles. ABDOMEN: +BS, soft, NT, ND. EXTREMITIES: No LE edema. 2+ pedal pulses. NEURO: Awake and alert. Nonfocal. PSYCH: Appropriate mood and affect. A/P Assessment and Plan 56 YOAAF with sickle cell thalassemia admitted for acute vasoocclusive crisis. 1. Sickle cell vasoocclusive crisis - Recently admitted for crisis on 07/10-07/[address] Chin - Hemoglobin 9.7 on admission (was 7.5 on discharge last admission and she had been transfused 1 unit PRBC) - Down slightly to 8.6 today, could be dilutional. Continue to monitor - Pain control - IV fluids - Supplemental O2 - Heme consulted, appreciate reccs. Dr. Chin to follow today 2. Chest pain - Pt states quality is similar to prior vasoocclusive episodes but EKG showing T wave inversion in leads V4-V6 new from prior EKG on 07/10 - Troponins negative - Repeat EKG showed no more TWI but not with PVCs and bigeminy - No signs of acute chest such as consolidation on CXR, fever, or hypoxia - Telemetry DVT prophylaxis: Fondaparinux since allergic to Lovenox and Heparin and patient with history of HIT Discharge Planning Pending clinical improvement and control of pain, possibly in a day or two if pain improves Tanisha Gay MD Jul 22, 2017 09:22
[2017-07-22] MEDS ORDERED: INFLUENZA VIRUS VACCINE (QUADRIVALENT) 0.5 ML SYR IM ONE (10:00)
--- NOTE | 2017-07-22 13:28 | PD.ONC.PN ---
Subjective Subjective Remarks Afebrile Patient reports pain overall improved Still having pounding-like pain in her chest "with every heartbeat" Denies pain associated with inspiration No shortness of breath Objective Data Date Time Temp Pulse Resp B/P (MAP) Pulse Ox O2 Delivery O2 Flow Rate FiO2 07/22/17 12:21 98.6 92 17 137/74 (95) 98 07/22/17 12:00 Room Air 07/22/17 08:06 98.9 97 17 137/71 (93) 99 07/22/17 08:00 Room Air 07/22/17 04:00 86 07/22/17 04:00 Room Air 07/22/17 04:00 98.9 98 18 165/80 (108) 98 07/22/17 00:00 98.8 97 18 131/73 (92) 98 07/22/17 00:00 101 07/21/17 20:00 Room Air 07/21/17 20:00 95 07/21/17 20:00 98.2 103 18 148/76 (100) 97 07/21/17 18:09 98 Room Air 07/21/17 18:09 95 07/21/17 16:00 99.8 93 15 152/77 (102) 98 07/21/17 15:51 99 Room Air 07/22/17 07/22/17 07/22/17 07:00 15:00 23:00 Intake Total 1899 ml Balance 1899 ml Result Diagram: 07/22/17 0410 07/22/17 0410 Laboratory Results Laboratory Tests Test 07/22/17 04:10 White Blood Count 6.8 TH/MM3 Red Blood Count 3.67 MIL/MM3 Hemoglobin 8.6 GM/DL Hematocrit 25.4 % Mean Corpuscular Volume 69.3 FL Mean Corpuscular Hemoglobin 23.3 PG Mean Corpuscular Hemoglobin Concent 33.7 % Red Cell Distribution Width 22.4 % Platelet Count 159 TH/MM3 Mean Platelet Volume 9.6 FL CBC Comment AUTO DIFF Differential Total Cells Counted 100 Neutrophils % (Manual) 73 % Band Neutrophils % 6 % Lymphocytes % 16 % Monocytes % 4 % Eosinophils % 1 % Neutrophils # (Manual) 5.4 TH/MM3 Nucleated Red Blood Cells 3 /100 WBC Differential Comment FINAL DIFF MANUAL Atypical Lymphocytes % Platelet Estimate NORMAL Platelet Morphology Comment NORMAL Target Cells 1+ Tear Drop Cells 1+ Ovalocytes 1+ Acanthocytes 1+ Keratocytes 1+ Blood Urea Nitrogen 8 MG/DL Creatinine 0.71 MG/DL Random Glucose 105 MG/DL Calcium Level 9.3 MG/DL Sodium Level 139 MEQ/L Potassium Level 4.0 MEQ/L Chloride Level 106 MEQ/L Carbon Dioxide Level 26.8 MEQ/L Anion Gap 6 MEQ/L Estimat Glomerular Filtration Rate 103 ML/MIN Culture Results Microbiology Date/Time Source Procedure Growth Status 07/21/17 05:50 Blood Peripheral Aerobic Blood Culture - Preliminary NO GROWTH IN 1 DAY Resulted 07/21/17 05:50 Blood Peripheral Anaerobic Blood Culture - Preliminary NO GROWTH IN 1 DAY Resulted 07/21/17 05:50 Blood Peripheral Aerobic Blood Culture - Preliminary NO GROWTH IN 1 DAY Resulted 07/21/17 05:50 Blood Peripheral Anaerobic Blood Culture - Preliminary NO GROWTH IN 1 DAY Resulted 07/21/17 06:05 Urine Clean Catch Urine Culture Pending Received Administered Medications Medications (Trade) Dose Ordered Sig/Natalie Route PRN Reason Start Time Stop Time Status Last Admin Dose Admin Hydromorphone HCl (Dilaudid Pf Inj) 1 mg Q4H PRN IV PUSH PAIN 6-10 07/21/17 09:15 07/22/17 11:12 Hydromorphone HCl (Dilaudid Pf Inj) 2 mg Q4H PRN IV PUSH BREAKTHROUGH PAIN 07/21/17 09:15 07/22/17 08:43 Folic Acid (Folate) 1 mg DAILY PO 07/22/17 09:00 07/22/17 08:43 Multivitamins (Theragran) 1 tab DAILY PO 07/22/17 09:00 07/22/17 08:43 Senna/Docusate Sodium (Chelsey-Colace) 1 tab BID PO 07/21/17 10:00 07/22/17 08:42 Magnesium Hydroxide (Milk Of Magnesia Liq) 30 ml Q6H PRN PO CONSTIPATION 07/21/17 09:15 07/22/17 08:48 Methadone HCl (Dolophine) 10 mg TID PO 07/21/17 13:00 07/22/17 08:42 Sodium Chloride 1,000 ml @ 100 mls/hr Q10H IV 07/21/17 14:00 07/22/17 08:54 Fondaparinux (Arixtra Inj) 2.5 mg Q24H SQ 07/21/17 15:00 07/21/17 16:45 Objective Remarks GENERAL: Older female resting in bed watching TV in no obvious distress SKIN: Warm and dry. HEAD: Normocephalic. EYES: No injection or drainage. NECK: Supple, trachea midline. CARDIOVASCULAR: Regular rate and rhythm without murmurs. RESPIRATORY: Clear posteriorly. Breathing unlabored at rest. GASTROINTESTINAL: Abdomen soft, non-tender, nondistended. EXTREMITIES: No edema. MUSCULOSKELETAL: Adequate muscle tone. NEUROLOGICAL: No obvious focal deficit. Awake, alert, and oriented x3. Assessment/Plan Problem List: (1) Sickle cell crisis ICD Codes: D57.00 - Hb-SS disease with crisis, unspecified Status: Acute Plan: --Hydrea on hold --No sign of acute chest syndrome --Monitor CBC --Continue pain meds with IV fluids Assessment 56-year-old female admitted with sickle cell crisis Plan 1. Continue IV fluids 2. Continue supportive care with as needed IV pain medications 3. CBC in a.m. Attending Statement The exam, history, and the medical decision-making described in the above note were completed with the assistance of the mid-level provider. I reviewed and agree with the findings presented. I attest that I had a [id number] encounter with the patient on the same day, and personally performed and documented my assessment and findings in the medical record. Pt seen and examined. Noted EKG changes, troponin I x 2 negative. Still tachycardic, vaso occlusive crisis. Continue current tx. Agree w/ Arixtra. Defer transfusion unless no improvement. Noted fevers. Monitor blood counts for post transfusion purpura. Dagmar Red Jul 22, 2017 13:28 Pema Chin MD Jul 22, 2017 21:09
[2017-07-22] MEDS: FONDAPARINUX SODIUM 2.5 MG/0.5 ML SYRINGE SQ SCH (16:12)
--- NOTE | 2017-07-22 19:10 | HHI.PR ---
Subjective Remarks NOT SEEN Objective Vitals Vital Signs Date Time Temp Pulse Resp B/P (MAP) Pulse Ox O2 Delivery O2 Flow Rate FiO2 07/22/17 16:06 100.1 96 17 144/72 (96) 98 07/22/17 12:21 98.6 92 17 137/74 (95) 98 07/22/17 12:00 Room Air 07/22/17 08:06 98.9 97 17 137/71 (93) 99 07/22/17 08:00 Room Air 07/22/17 04:00 86 07/22/17 04:00 Room Air 07/22/17 04:00 98.9 98 18 165/80 (108) 98 07/22/17 00:00 98.8 97 18 131/73 (92) 98 07/22/17 00:00 101 07/21/17 20:00 Room Air 07/21/17 20:00 95 07/21/17 20:00 98.2 103 18 148/76 (100) 97 I/O 07/21/17 07/21/17 07/21/17 07/22/17 07/22/17 07/22/17 07:00 15:00 23:00 07:00 15:00 23:00 Intake Total 240 ml 1899 ml 600 ml Balance 240 ml 1899 ml 600 ml Intake Oral 240 ml 300 ml 600 ml IV Total 1599 ml # Voids 1 3 # Bowel Movements 0 Result Diagram: 07/22/17 0410 07/22/17 0410 Imaging Last Impressions Chest X-Ray 07/21/17 0532 Signed Impressions: Service Date/Time: Friday, July 21, 2017 05:46 - CONCLUSION: No acute disease. Horacio Galaviz Jr., MD Objective Remarks GENERAL: WN, WD female resting in bed in NAD. SKIN: Warm and dry. HEENT: AT/NC. Pupils equal and round. Sclera mildly icteric. MMM. NECK: Supple no tender LAD or JVD. CHEST: Chest wall TTP. HEART: Tachycardic with 2/6 EVELIO. LUNGS: CTAB without wheezes or crackles. ABDOMEN: +BS, soft, NT, ND. EXTREMITIES: No LE edema. 2+ pedal pulses. NEURO: Awake and alert. Nonfocal. PSYCH: Appropriate mood and affect. Procedures none A/P Problem List: (1) Sickle cell crisis ICD Code: D57.00 - Hb-SS disease with crisis, unspecified Status: Acute (2) Chest pain ICD Code: R07.9 - Chest pain, unspecified Status: Acute Assessment and Plan 56 YOAAF with sickle cell thalassemia admitted for acute vasoocclusive crisis. 1. Sickle cell vasoocclusive crisis - Recently admitted for crisis on 07/10-07/[address] Chin - Hemoglobin 9.7 on admission (was 7.5 on discharge last admission and she had been transfused 1 unit PRBC) - Down slightly to 8.6 today, could be dilutional. Continue to monitor - Pain control - IV fluids - Supplemental O2 - Heme consulted, appreciate reccs. Dr. Chin to follow today 2. Chest pain - Pt states quality is similar to prior vasoocclusive episodes but EKG showing T wave inversion in leads V4-V6 new from prior EKG on 07/10 - Troponins negative - Repeat EKG showed no more TWI but not with PVCs and bigeminy - No signs of acute chest such as consolidation on CXR, fever, or hypoxia - Telemetry 3. Discontinue Rocephin that was initiated in the ED for possible UTI. Pt with large leukocyte esterase but no urinary symptoms such as dysuria or urgency. Culture pending, if positive will treat otherwise hold off on abx. DVT prophylaxis: Fondaparinux since allergic to Lovenox and Heparin and patient with history of HIT Discharge Planning Pending clinical improvement and control of pain, possibly in a day or two if pain improves Problem Qualifiers (1) Chest pain: Qualified Codes: R07.9 - Chest pain, unspecified Jacek Cornell MD Jul 22, 2017 19:09
[2017-07-23] VITALS (9 sets, daily range): BP systolic 117–176; BP diastolic 65–79; PULSE 61–121; RESP 17–20; TEMP 97.3–99.2; O2SAT 96–100
[2017-07-23] MEDS: HYDROmorphone HCL PF 2 MG/ML VIAL IV PUSH PRN ×11 (00:29→22:55)
[2017-07-23] MEDS: MAGNESIUM HYDROXIDE SUSP 30 ML CUP PO PRN ×2 (04:25→11:15)
[2017-07-23] MEDS: SODIUM CHLOR 0.45% 1000 ML INJ 1,000 ML IV SCH ×2 (06:00→16:08)
[2017-07-23 07:03] LABS: HEMATOCRIT 23.3 % (35.0-46.0); MEAN CELL VOLUME 68.9 FL (80.0-100.0); MEAN CORPUSCULAR HEMOGLOBIN 23.6 PG (27.0-34.0); MEAN CORPUSCULAR HGB CONC 34.2 % (32.0-36.0); MEAN PLATELET VOLUME 10.2 FL (7.0-11.0); PLATELET COUNT 137 TH/MM3 (150-450); RED BLOOD COUNT 3.38 MIL/MM3 (4.00-5.30); WHITE BLOOD COUNT 6.4 TH/MM3 (4.0-11.0)
[2017-07-23] MEDS: MULTIVITAMIN TAB PO SCH (09:00)
[2017-07-23] MEDS: DOCUSATE SODIUM 50 MG/SENNA 8.6 MG TAB PO SCH ×2 (09:09→20:33)
[2017-07-23] MEDS: METHADONE HCL 10 MG TAB PO SCH ×3 (09:09→18:30)
[2017-07-23] MEDS: FOLIC ACID 1 MG TAB PO SCH (09:09)
[2017-07-23] MEDS: SODIUM CHLORIDE 0.9% FLUSH 10 ML FLUSH IV FLUSH SCH ×2 (09:10→20:33)
[2017-07-23 10:50] LABS: BANDS 6 % (0-6); BASOPHILS 1 % (0-2); LYMPHOCYTES 20 % (9-44); MONOCYTES 4 % (0-8); NEUTROPHIL # MANUAL DIFF 4.7 TH/MM3 (1.8-7.7); POLYS (SEG NEUTROPHILS) 68 % (16-70)
[2017-07-23 10:51] LABS: ACANTHOCYTES 1+ (NORMAL); KERATOCYTES OCC (NORMAL); OVALOCYTES 1+ (NORMAL); POLYCHROMASIA 2.4 % (0.0-1.9); TARGET CELLS 1+ (NORMAL); TEARDROP RBCS 1+ (NORMAL)
--- NOTE | 2017-07-23 11:31 | HHI.PR ---
Subjective Remarks Improving cp down to 8/10 dw Heme keep pt another day Objective Vitals Vital Signs Date Time Temp Pulse Resp B/P (MAP) Pulse Ox O2 Delivery O2 Flow Rate FiO2 07/23/17 11:09 21 07/23/17 08:00 Room Air 07/23/17 08:00 99.2 98 20 117/65 (82) 98 07/23/17 08:00 121 07/23/17 08:00 Room Air 07/23/17 04:00 97.3 104 20 142/78 (99) 100 07/23/17 03:46 92 07/23/17 01:20 99.2 61 17 176/71 (106) 99 07/23/17 00:00 Room Air 07/22/17 23:45 88 07/22/17 20:00 Room Air 07/22/17 19:42 91 07/22/17 16:06 100.1 96 17 144/72 (96) 98 07/22/17 16:00 Room Air 07/22/17 15:42 89 07/22/17 12:21 98.6 92 17 137/74 (95) 98 07/22/17 12:00 Room Air 07/22/17 11:48 90 I/O 07/22/17 07/22/17 07/22/17 07/23/17 07/23/17 07/23/17 07:00 15:00 23:00 07:00 15:00 23:00 Intake Total 1899 ml 1600 ml 1600 ml Balance 1899 ml 1600 ml 1600 ml Intake Oral 300 ml 600 ml 600 ml IV Total 1599 ml 1000 ml 1000 ml # Voids 3 4 # Bowel Movements 0 0 Result Diagram: 07/23/17 0640 07/22/17 0410 Imaging Last Impressions Chest X-Ray 07/21/17 0532 Signed Impressions: Service Date/Time: Friday, July 21, 2017 05:46 - CONCLUSION: No acute disease. Horacio Galaviz Jr., MD Objective Remarks GENERAL: WN, WD female resting in bed in NAD. SKIN: Warm and dry. HEENT: AT/NC. Pupils equal and round. Sclera mildly icteric. MMM. NECK: Supple no tender LAD or JVD. CHEST: Chest wall TTP. HEART: Tachycardic with 2/6 EVELIO. LUNGS: CTAB without wheezes or crackles. ABDOMEN: +BS, soft, NT, ND. EXTREMITIES: No LE edema. 2+ pedal pulses. NEURO: Awake and alert. Nonfocal. PSYCH: Appropriate mood and affect. Procedures none A/P Problem List: (1) Sickle cell crisis ICD Code: D57.00 - Hb-SS disease with crisis, unspecified Status: Acute (2) Chest pain ICD Code: R07.9 - Chest pain, unspecified Status: Acute Assessment and Plan 56 YOAAF with sickle cell thalassemia admitted for acute vasoocclusive crisis. 1. Sickle cell vasoocclusive crisis - Recently admitted for crisis on 07/10-07/[address] Chin - Hemoglobin 9.7 on admission (was 7.5 on discharge last admission and she had been transfused 1 unit PRBC) - Pain control - IV fluids - Supplemental O2 - Heme consulted, appreciate reccs. Dr. Chin to follow today - improving clinically possible dc in am 2. Chest pain - Pt states quality is similar to prior vasoocclusive episodes but EKG showing T wave inversion in leads V4-V6 new from prior EKG on 07/10 - Troponins negative - Repeat EKG showed no more TWI but not with PVCs and bigeminy - No signs of acute chest such as consolidation on CXR, fever, or hypoxia - Telemetry 3. Discontinue Rocephin that was initiated in the ED for possible UTI. Pt with large leukocyte esterase but no urinary symptoms such as dysuria or urgency. Culture pending, if positive will treat otherwise hold off on abx. DVT prophylaxis: Fondaparinux since allergic to Lovenox and Heparin and patient with history of HIT Discharge Planning Pending clinical improvement and control of pain, possibly tomorrow Problem Qualifiers (1) Chest pain: Qualified Codes: R07.9 - Chest pain, unspecified Jacek Cornell MD Jul 23, 2017 11:31
--- NOTE | 2017-07-23 11:53 | PD.ONC.PN ---
Subjective Subjective Remarks Afebrile overnight. Patient reporting she still has pain in the right lateral chest. she would like to stay in the hospital for another day for pain management. No cough or shortness of breath. Objective Data Date Time Temp Pulse Resp B/P (MAP) Pulse Ox O2 Delivery O2 Flow Rate FiO2 07/23/17 11:09 21 07/23/17 08:00 Room Air 07/23/17 08:00 99.2 98 20 117/65 (82) 98 07/23/17 08:00 121 07/23/17 08:00 Room Air 07/23/17 04:00 97.3 104 20 142/78 (99) 100 07/23/17 03:46 92 07/23/17 01:20 99.2 61 17 176/71 (106) 99 07/23/17 00:00 Room Air 07/22/17 23:45 88 07/22/17 20:00 Room Air 07/22/17 19:42 91 07/22/17 16:06 100.1 96 17 144/72 (96) 98 07/22/17 16:00 Room Air 07/22/17 15:42 89 07/22/17 12:21 98.6 92 17 137/74 (95) 98 07/22/17 12:00 Room Air 07/23/17 07/23/17 07/23/17 07:00 15:00 23:00 Intake Total 1600 ml Balance 1600 ml Result Diagram: 07/23/17 0640 07/22/17 0410 Laboratory Results Laboratory Tests Test 07/23/17 06:40 White Blood Count 6.4 TH/MM3 Red Blood Count 3.38 MIL/MM3 Hemoglobin 8.0 GM/DL Hematocrit 23.3 % Mean Corpuscular Volume 68.9 FL Mean Corpuscular Hemoglobin 23.6 PG Mean Corpuscular Hemoglobin Concent 34.2 % Red Cell Distribution Width 22.0 % Platelet Count 137 TH/MM3 Mean Platelet Volume 10.2 FL CBC Comment AUTO DIFF Differential Total Cells Counted 100 Neutrophils % (Manual) 68 % Band Neutrophils % 6 % Lymphocytes % 20 % Monocytes % 4 % Eosinophils % 1 % Basophils % 1 % Neutrophils # (Manual) 4.7 TH/MM3 Differential Comment FINAL DIFF MANUAL Platelet Estimate LOW Platelet Morphology Comment ENLARGED Polychromasia 2.4 % Target Cells 1+ Tear Drop Cells 1+ Ovalocytes 1+ Acanthocytes 1+ Keratocytes OCC Culture Results Microbiology Date/Time Source Procedure Growth Status 07/21/17 05:50 Blood Peripheral Aerobic Blood Culture - Preliminary NO GROWTH IN 2 DAYS Resulted 07/21/17 05:50 Blood Peripheral Anaerobic Blood Culture - Preliminary NO GROWTH IN 2 DAYS Resulted 07/21/17 05:50 Blood Peripheral Aerobic Blood Culture - Preliminary NO GROWTH IN 2 DAYS Resulted 07/21/17 05:50 Blood Peripheral Anaerobic Blood Culture - Preliminary NO GROWTH IN 2 DAYS Resulted 07/21/17 06:05 Urine Clean Catch Urine Culture - Final 10-50,000 CFU/ML MIXED GRAM POSITIVE ... Complete Administered Medications Medications (Trade) Dose Ordered Sig/Natalie Route PRN Reason Start Time Stop Time Status Last Admin Dose Admin Sodium Chloride (NS Flush) 2 ml BID IV FLUSH 07/21/17 21:00 07/23/17 09:10 Hydromorphone HCl (Dilaudid Pf Inj) 1 mg Q4H PRN IV PUSH PAIN 6-10 07/21/17 09:15 07/23/17 09:10 Hydromorphone HCl (Dilaudid Pf Inj) 2 mg Q4H PRN IV PUSH BREAKTHROUGH PAIN 07/21/17 09:15 07/23/17 11:12 Folic Acid (Folate) 1 mg DAILY PO 07/22/17 09:00 07/23/17 09:09 Multivitamins (Theragran) 1 tab DAILY PO 07/22/17 09:00 07/22/17 08:43 Senna/Docusate Sodium (Chelsey-Colace) 1 tab BID PO 07/21/17 10:00 07/23/17 09:09 Magnesium Hydroxide (Milk Of Magnesia Liq) 30 ml Q6H PRN PO CONSTIPATION 07/21/17 09:15 07/23/17 11:15 Methadone HCl (Dolophine) 10 mg TID PO 07/21/17 13:00 07/23/17 09:09 Sodium Chloride 1,000 ml @ 100 mls/hr Q10H IV 07/21/17 14:00 07/23/17 06:00 Fondaparinux (Arixtra Inj) 2.5 mg Q24H SQ 07/21/17 15:00 07/22/17 16:12 Objective Remarks GENERAL: Middle aged female, sitting up in bed in nad. SKIN: Warm and dry. HEAD: Normocephalic. EYES: No injection or drainage. NECK: Supple, trachea midline. CARDIOVASCULAR: Regular rate and rhythm RESPIRATORY: Breath sounds equal bilaterally. No accessory muscle use. GASTROINTESTINAL: Abdomen soft, non-tender, nondistended. EXTREMITIES: No cyanosis, or edema. MUSCULOSKELETAL: Adequate muscle tone. NEUROLOGICAL: No obvious focal deficit. Awake, alert, and oriented x3. Assessment/Plan Problem List: (1) Sickle cell crisis ICD Codes: D57.00 - Hb-SS disease with crisis, unspecified Status: Acute Plan: 07/23: continuing to have right sided chest pain. pain managed with IV dilaudid. --Hydrea on hold --No sign of acute chest syndrome --Monitor CBC --Continue pain meds with IV fluids Assessment 56-year-old female admitted with sickle cell crisis Plan 1. continue supportive care with IVF, pain management. 2. monitor CBC, no transfusion needed at present. 3. continue telemetry Attending Statement The exam, history, and the medical decision-making described in the above note were completed with the assistance of the mid-level provider. I reviewed and agree with the findings presented. I attest that I had a [id number] encounter with the patient on the same day, and personally performed and documented my assessment and findings in the medical record. Pain still present from sickle cell. Tolerating methadone with breakthrough medication. Non specific EKG changes. Mild anemia Cont DVT prophylaxis with ARixtra. Martha Conklin Jul 23, 2017 11:52 Pema Chin MD Jul 23, 2017 21:16
[2017-07-23] MEDS: FONDAPARINUX SODIUM 2.5 MG/0.5 ML SYRINGE SQ SCH (16:07)
[2017-07-23] MEDS ORDERED: FOLI1TAB6 PO (17:45)
--- NOTE | 2017-07-23 17:46 | HHI.DCPOC ---
Discharge Care Plan Diagnosis: (1) Sickle cell crisis Your Health Problems Are: Difficulty with ADL Exercise Tolerance Goals to Promote Your Health * To prevent worsening of your condition and complications * To maintain your health at the optimal level Directions to Meet Your Goals Take your medications as prescribed Follow your dietary instruction Follow activity as directed Keep your appointments as scheduled Take your immunizations and boosters as scheduled If your symptoms worsen call your PCP, if no PCP go to Urgent Care Center or Emergency Room Smoking is Dangerous to Your Health. Avoid second hand smoke Call the 24-hour hour crisis hotline for domestic abuse at Jacek Cornell MD Jul 23, 2017 17:46
[2017-07-24] VITALS (8 sets, daily range): BP systolic 119–154; BP diastolic 57–80; PULSE 93–128; RESP 16–20; TEMP 98.4–100; O2SAT 96–100
[2017-07-24] MEDS: HYDROmorphone HCL PF 2 MG/ML VIAL IV PUSH PRN ×6 (01:41→16:19)
[2017-07-24] MEDS: SODIUM CHLOR 0.45% 1000 ML INJ 1,000 ML IV SCH ×2 (01:45→10:44)
[2017-07-24] MEDS: METHADONE HCL 10 MG TAB PO SCH ×3 (08:59→16:18)
[2017-07-24] MEDS: DOCUSATE SODIUM 50 MG/SENNA 8.6 MG TAB PO SCH ×2 (08:59→20:01)
[2017-07-24] MEDS: MAGNESIUM HYDROXIDE SUSP 30 ML CUP PO PRN ×2 (08:59→20:09)
[2017-07-24] MEDS: FOLIC ACID 1 MG TAB PO SCH (08:59)
[2017-07-24] MEDS: MULTIVITAMIN TAB PO SCH (09:00)
[2017-07-24] MEDS: SODIUM CHLORIDE 0.9% FLUSH 10 ML FLUSH IV FLUSH SCH ×2 (09:00→20:01)
--- NOTE | 2017-07-24 09:16 | EKG ---
Date Performed: 07/23/2017 Time Performed: 15:11:13 PTAGE: 56 years EKG: SINUS TACHYCARDIA WITH OCCASIONAL VENTRICULAR PREMATURE COMPLEXES POSSIBLE LEFT ATRIAL ENLA RGEMENT NONSPECIFIC T-WAVE ABNORMALITY ABNORMAL RHYTHM ECG PREVIOUS TRACING : 07/21/2017 18.32 DOCTOR: Herberth Loredo Interpretating Date/Time 07/24/2017 09:16:02
--- NOTE | 2017-07-24 13:40 | HHI.PR ---
Subjective Remarks Follow-up sickle cell crisis. No new complaints no fever, cough and shortness of breath. Discussed with nursing. Objective Vitals Vital Signs Date Time Temp Pulse Resp B/P (MAP) Pulse Ox O2 Delivery O2 Flow Rate FiO2 07/24/17 08:00 99.5 108 20 138/80 (99) 100 07/24/17 08:00 104 07/24/17 07:39 Room Air 07/24/17 04:06 93 07/24/17 04:00 98.4 98 16 121/62 (81) 96 07/24/17 00:00 98.7 98 16 121/75 (90) 96 07/23/17 23:41 96 07/23/17 20:00 98.4 105 18 135/74 (94) 96 07/23/17 20:00 Room Air 07/23/17 20:00 97 07/23/17 17:05 98 21 07/23/17 16:00 99.2 104 20 136/76 (96) 97 07/23/17 16:00 97 I/O 07/23/17 07/23/17 07/23/17 07/24/17 07/24/17 07/24/17 07:00 15:00 23:00 07:00 15:00 23:00 Intake Total 1600 ml 360 ml 1787 ml Balance 1600 ml 360 ml 1787 ml Intake Oral 600 ml 360 ml 360 ml IV Total 1000 ml 1427 ml # Voids 4 5 5 # Bowel Movements 0 0 Result Diagram: 07/23/17 0640 07/22/17 0410 Imaging Last Impressions Chest X-Ray 07/21/17 0532 Signed Impressions: Service Date/Time: Friday, July 21, 2017 05:46 - CONCLUSION: No acute disease. Horacio Galaviz Jr., MD Objective Remarks GENERAL: WN, WD female resting in bed in NAD. SKIN: Warm and dry. HEENT: AT/NC. Pupils equal and round. Sclera mildly icteric. MMM. NECK: Supple no tender LAD or JVD. CHEST: Chest wall TTP. HEART: Tachycardic with 2/6 EVELIO. LUNGS: CTAB without wheezes or crackles. ABDOMEN: +BS, soft, NT, ND. EXTREMITIES: No LE edema. 2+ pedal pulses. NEURO: Awake and alert. Nonfocal. PSYCH: Appropriate mood and affect. Procedures none A/P Problem List: (1) Sickle cell crisis ICD Code: D57.00 - Hb-SS disease with crisis, unspecified Status: Acute (2) Chest pain ICD Code: R07.9 - Chest pain, unspecified Status: Acute Assessment and Plan 56 YOAAF with sickle cell thalassemia admitted for acute vasoocclusive crisis. 1. Sickle cell vasoocclusive crisis - Recently admitted for crisis on 07/10-07/[address] Chin - Hemoglobin 9.7 on admission (was 7.5 on discharge last admission and she had been transfused 1 unit PRBC) - Pain control - IV fluids - Supplemental O2 - Heme consulted, appreciate reccs. Dr. Chin to follow today - improving clinically stable for discharge 2. Chest pain - Pt states quality is similar to prior vasoocclusive episodes but EKG showing T wave inversion in leads V4-V6 new from prior EKG on 07/10 - Troponins negative - Repeat EKG showed no more TWI but not with PVCs and bigeminy - No signs of acute chest such as consolidation on CXR, fever, or hypoxia - Telemetry 3. Discontinued Rocephin that was initiated in the ED for possible UTI. Pt with large leukocyte esterase but no urinary symptoms such as dysuria or urgency. Culture with contaminants DVT prophylaxis: Fondaparinux since allergic to Lovenox and Heparin and patient with history of HIT Discharge Planning Stable for discharge Problem Qualifiers (1) Chest pain: Qualified Codes: R07.9 - Chest pain, unspecified Jacek Cornell MD Jul 24, 2017 13:40
--- NOTE | 2017-07-24 13:41 | HHI.DS ---
Discharge Summary Admission Date Jul 21, 2017 at 09:18 Discharge Date: Jul 24, 2017 Admitting Diagnosis Chest pain r/o ACS, sickle cell crisis, intractable pain (1) Sickle cell crisis ICD Code: D57.00 - Hb-SS disease with crisis, unspecified Diagnosis: Principal Status: Acute (2) Chest pain ICD Code: R07.9 - Chest pain, unspecified Diagnosis: Principal Status: Acute Procedures none Brief History - From Admission 56 YOAAF with sickle cell thalassemia presenting with acute onset 10 out of 10 pain in the back of her arms and in the center of her chest. She describes the pain as dull and throbbing but states it can also be sharp at times. The quality of her pain is very similar to prior episodes. She denies associated lightheadedness, dizziness, palpitations, or diaphoresis. Pain does not radiate into her jaw. She follows with Dr. Chin monthly. She was admitted for pain crisis on 07/[address] Chin's office. She was treated with IV fluids, pain control, and 1 unit packed RBCs. She states she typically takes hydroxyurea but has been out of it for the past week. She denies fever, chills, cough, or recently illness. She denies urinary symptoms. CBC/BMP: 07/23/17 0640 07/22/17 0410 Significant Findings Laboratory Tests Test 07/22/17 04:10 07/23/17 06:40 Red Blood Count 3.67 MIL/MM3 (4.00-5.30) 3.38 MIL/MM3 (4.00-5.30) Hemoglobin 8.6 GM/DL (11.6-15.3) 8.0 GM/DL (11.6-15.3) Hematocrit 25.4 % (35.0-46.0) 23.3 % (35.0-46.0) Mean Corpuscular Volume 69.3 FL (80.0-100.0) 68.9 FL (80.0-100.0) Mean Corpuscular Hemoglobin 23.3 PG (27.0-34.0) 23.6 PG (27.0-34.0) Red Cell Distribution Width 22.4 % (11.6-17.2) 22.0 % (11.6-17.2) Neutrophils % (Manual) 73 % (16-70) Nucleated Red Blood Cells 3 /100 WBC (0-0) Target Cells 1+ (NORMAL) 1+ (NORMAL) Tear Drop Cells 1+ (NORMAL) 1+ (NORMAL) Ovalocytes 1+ (NORMAL) 1+ (NORMAL) Acanthocytes 1+ (NORMAL) 1+ (NORMAL) Keratocytes 1+ (NORMAL) OCC (NORMAL) Platelet Count 137 TH/MM3 (150-450) Platelet Estimate LOW (NORMAL) Platelet Morphology Comment ENLARGED (NORMAL) Polychromasia 2.4 % (0.0-1.9) Imaging Last Impressions Chest X-Ray 07/21/17 0532 Signed Impressions: Service Date/Time: Friday, July 21, 2017 05:46 - CONCLUSION: No acute disease. Horacio Galaviz Jr., MD PE at Discharge GENERAL: WN, WD female resting in bed in NAD. SKIN: Warm and dry. HEENT: AT/NC. Pupils equal and round. Sclera mildly icteric. MMM. NECK: Supple no tender LAD or JVD. CHEST: Chest wall TTP. HEART: Tachycardic with 2/6 EVELIO. LUNGS: CTAB without wheezes or crackles. ABDOMEN: +BS, soft, NT, ND. EXTREMITIES: No LE edema. 2+ pedal pulses. NEURO: Awake and alert. Nonfocal. PSYCH: Appropriate mood and affect. Hospital Course 56 YOAAF with sickle cell thalassemia admitted for acute vasoocclusive crisis. 1. Sickle cell vasoocclusive crisis - Recently admitted for crisis on 07/10-07/[address] Chin - Hemoglobin 9.7 on admission (was 7.5 on discharge last admission and she had been transfused 1 unit PRBC) - Pain control - IV fluids - Supplemental O2 - Heme consulted, appreciate reccs. Dr. Chin to follow today - improving clinically stable for discharge 2. Chest pain - Pt states quality is similar to prior vasoocclusive episodes but EKG showing T wave inversion in leads V4-V6 new from prior EKG on 07/10 - Troponins negative - Repeat EKG showed no more TWI but not with PVCs and bigeminy - No signs of acute chest such as consolidation on CXR, fever, or hypoxia - Telemetry 3. Discontinued Rocephin that was initiated in the ED for possible UTI. Pt with large leukocyte esterase but no urinary symptoms such as dysuria or urgency. Culture with contaminants DVT prophylaxis: Fondaparinux since allergic to Lovenox and Heparin and patient with history of HIT Discharge Planning Pt Condition on Discharge: Stable Discharge Disposition: Discharge Home Discharge Time: > 30 minutes Discharge Instructions DIET: Follow Instructions for: As Tolerated, No Restrictions Activities you can perform: Regular-No Restrictions Activities to Avoid: Driving Follow up Referrals: Appointment for Follow Up @ [facility] Oncology/Hematology - 1 Week PCP Follow-up - 1 Week PCP Follow-up @ [facility] New Medications: Folic Acid (Folic Acid) 1 Mg Tablet 1 MG PO DAILY for Sickle cell, #30 TAB Continued Medications: Hydromorphone (Dilaudid) 2 Mg Tab 4 MG PO Q6H PRN for PAIN SCALE 6 TO 10, TAB 0 Refills Methadone (Methadone) 10 Mg Tab 10 MG PO TID, TAB 0 Refills Jacek Cornell MD Jul 24, 2017 13:41
--- NOTE | 2017-07-24 14:22 | PD.ONC.PN ---
Subjective Subjective Remarks Afebrile Pt reports she is not yet ready for discharge Wants to see if she can go without IV dilaudid for longer periods. Feels like she is getting some fluid in her lungs Objective Data Date Time Temp Pulse Resp B/P (MAP) Pulse Ox O2 Delivery O2 Flow Rate FiO2 07/24/17 08:00 99.5 108 20 138/80 (99) 100 07/24/17 08:00 104 07/24/17 07:39 Room Air 07/24/17 04:06 93 07/24/17 04:00 98.4 98 16 121/62 (81) 96 07/24/17 00:00 98.7 98 16 121/75 (90) 96 07/23/17 23:41 96 07/23/17 20:00 98.4 105 18 135/74 (94) 96 07/23/17 20:00 Room Air 07/23/17 20:00 97 07/23/17 17:05 98 21 07/23/17 16:00 99.2 104 20 136/76 (96) 97 07/23/17 16:00 97 07/24/17 07/24/17 07/24/17 07:00 15:00 23:00 Intake Total 1787 ml Balance 1787 ml Result Diagram: 07/23/17 0640 07/22/17 0410 Administered Medications Medications (Trade) Dose Ordered Sig/Natalie Route PRN Reason Start Time Stop Time Status Last Admin Dose Admin Sodium Chloride (NS Flush) 2 ml BID IV FLUSH 07/21/17 21:00 07/24/17 09:00 Hydromorphone HCl (Dilaudid Pf Inj) 1 mg Q4H PRN IV PUSH PAIN 6-10 07/21/17 09:15 07/24/17 12:19 Hydromorphone HCl (Dilaudid Pf Inj) 2 mg Q4H PRN IV PUSH BREAKTHROUGH PAIN 07/21/17 09:15 07/24/17 09:00 Folic Acid (Folate) 1 mg DAILY PO 07/22/17 09:00 07/24/17 08:59 Multivitamins (Theragran) 1 tab DAILY PO 07/22/17 09:00 07/22/17 08:43 Senna/Docusate Sodium (Chelsey-Colace) 1 tab BID PO 07/21/17 10:00 07/24/17 08:59 Magnesium Hydroxide (Milk Of Magnesia Liq) 30 ml Q6H PRN PO CONSTIPATION 07/21/17 09:15 07/24/17 08:59 Methadone HCl (Dolophine) 10 mg TID PO 07/21/17 13:00 07/24/17 12:19 Sodium Chloride 1,000 ml @ 100 mls/hr Q10H IV 07/21/17 14:00 07/24/17 10:44 Fondaparinux (Arixtra Inj) 2.5 mg Q24H SQ 07/21/17 15:00 07/23/17 16:07 Objective Remarks GENERAL: Young female, resting in bed in no obvious distress. SKIN: Warm and dry. HEAD: Normocephalic. EYES: No injection or drainage. NECK: Supple, trachea midline. CARDIOVASCULAR: Regular rate and rhythm without murmurs. RESPIRATORY: Few crackles at the bases, more so on the R. GASTROINTESTINAL: Abdomen soft, non-tender, nondistended. EXTREMITIES: No cyanosis, or edema. MUSCULOSKELETAL: Adequate muscle tone. NEUROLOGICAL: No obvious focal deficit. Awake, alert, and oriented x3. Assessment/Plan Problem List: (1) Sickle cell crisis ICD Codes: D57.00 - Hb-SS disease with crisis, unspecified Status: Acute Plan: 07/24: Dilaudid pushed out to every 6 hours. CBC in am. Plans for discharge on 07/25. --Hydrea on hold --No sign of acute chest syndrome --Monitor CBC --Pt taking po fluids well; will stop IVF Assessment 56-year-old female admitted with sickle cell crisis Plan 1. Plan for discharge on 07/25. 2. Check CBC in am prior to discharge. 3. Stop IVF; enc. po intake. Spread out dilaudid to every 6 hours prn Dagmar Red Jul 24, 2017 14:22
[2017-07-24] MEDS: FONDAPARINUX SODIUM 2.5 MG/0.5 ML SYRINGE SQ SCH (15:00)
[2017-07-24] MEDS: HYDROmorphone HCL PF 0.5 MG/0.5 ML SYRINGE IV PUSH PRN (20:01)
[2017-07-25] VITALS (13 sets, daily range): BP systolic 109–126; BP diastolic 56–68; PULSE 98–123; RESP 9–18; TEMP 97.7–101.8; O2SAT 97–100
[2017-07-25] MEDS: HYDROmorphone HCL PF 2 MG/ML VIAL IV PUSH PRN ×2 (00:18→14:59)
[2017-07-25] MEDS: HYDROmorphone HCL PF 0.5 MG/0.5 ML SYRINGE IV PUSH PRN ×4 (04:23→23:42)
[2017-07-25] MEDS: ACETAMINOPHEN 325 MG TAB PO PRN ×2 (04:30→13:59)
[2017-07-25 04:48] LABS: AUTOMATED NEUTROPHIL # 4.4 TH/MM3 (1.8-7.7); BASOPHIL # 0.1 TH/MM3 (0-0.2); BASOPHIL % 0.9 % (0.0-2.0); EOSINOPHIL % 0.4 % (0.0-4.0); LYMPH % 17.6 % (9.0-44.0); LYMPHOCYTE # 1.1 TH/MM3 (1.0-4.8); MEAN CORPUSCULAR HEMOGLOBIN 24.6 PG (27.0-34.0); MEAN CORPUSCULAR HGB CONC 34.6 % (32.0-36.0); MEAN PLATELET VOLUME 9.5 FL (7.0-11.0); MONO % 7.4 % (0.0-8.0); MONOCYTE # 0.4 TH/MM3 (0-0.9); NEUT % 73.7 % (16.0-70.0); PLATELET COUNT 75 TH/MM3 (150-450); RED BLOOD COUNT 1.95 MIL/MM3 (4.00-5.30)
[2017-07-25 05:20] LABS: HEMATOCRIT 13.8 % (35.0-46.0); HEMOGLOBIN 4.8 GM/DL (11.6-15.3)
[2017-07-25 05:35] LABS: BANDS 2 % (0-6); LYMPHOCYTES 14 % (9-44); MONOCYTES 1 % (0-8); POLYS (SEG NEUTROPHILS) 81 % (16-70)
[2017-07-25 05:36] LABS: KERATOCYTES 1+ (NORMAL); OVALOCYTES 1+ (NORMAL); SICKLE CELLS 1+ (NORMAL); TARGET CELLS 1+ (NORMAL); TEARDROP RBCS 1+ (NORMAL)
[2017-07-25] MEDS ORDERED: SENNOSIDES 8.6 MG TAB PO PRN ×2 (05:45→15:15)
[2017-07-25] MEDS ORDERED: MAGNESIUM HYDROXIDE SUSP 30 ML CUP PO PRN ×2 (05:45→15:15)
[2017-07-25] MEDS ORDERED: BISACODYL 10 MG SUPP RECTAL PRN ×2 (05:45→15:15)
[2017-07-25] MEDS ORDERED: LACTULOSE SYRUP 20 GM/30 ML CUP PO PRN ×2 (05:45→15:15)
[2017-07-25] MEDS ORDERED: SODIUM CHLOR 0.9% 250 ML INJ 250 ML IV ONE (05:45)
[2017-07-25 07:30] LABS: HEMATOCRIT 13.7 % (35.0-46.0); HEMOGLOBIN 4.7 GM/DL (11.6-15.3)
[2017-07-25] MEDS: MULTIVITAMIN TAB PO SCH (09:00)
[2017-07-25] MEDS: METHADONE HCL 10 MG TAB PO SCH ×3 (09:18→17:31)
[2017-07-25] MEDS: FOLIC ACID 1 MG TAB PO SCH (09:18)
[2017-07-25] MEDS: SODIUM CHLORIDE 0.9% FLUSH 10 ML FLUSH IV FLUSH SCH ×2 (09:18→20:22)
[2017-07-25] MEDS: POLYETHYLENE GLYCOL 17 GM PKG PO SCH (09:18)
[2017-07-25] MEDS: DOCUSATE SODIUM 50 MG/SENNA 8.6 MG TAB PO SCH ×2 (09:18→20:23)
--- NOTE | 2017-07-25 10:22 | RADRPT ---
EXAM DATE/TIME: 07/25/2017 10:06 [place] COMPARISON: CHEST SINGLE AP, July 21, 2017, 5:46. INDICATIONS : Chest pain MEDICAL HISTORY : Sickle Cell disease. Thrombocytopenia. Chronic anemia.Hyperbilirubinemia. SURGICAL HISTORY : Hysterectomy. Infusaport ENCOUNTER: Subsequent ACUITY: 4 - 6 days PAIN SCORE: 7/10 LOCATION: chest FINDINGS: A single view of the chest demonstrates the lungs to be symmetrically aerated without evidence of mas s or effusion. There is a faint infiltrate in the right lung base. There is a right-sided IJ Infuse-a -Port catheter in good position The cardiomediastinal contours are unremarkable. Osseous structures are intact. CONCLUSION: Small infiltrate the right lung base. Left lung is clear. Herberth Esposito MD on July 25, 2017 at 10:19 Board Certified Radiologist. This report was verified electronically.
--- NOTE | 2017-07-25 10:48 | HHI.PR ---
Subjective Remarks Follow-up sickle cell crisis. Complains of labored breathing no other symptoms hemoglobin of 4.8 blood transfusion ordered. Discussed with hematology Objective Vitals Vital Signs Date Time Temp Pulse Resp B/P (MAP) Pulse Ox O2 Delivery O2 Flow Rate FiO2 07/25/17 08:00 99.7 110 16 109/59 (76) 99 07/25/17 05:30 100.2 07/25/17 05:30 16 07/25/17 04:53 16 07/25/17 04:30 101.8 122 18 114/56 (75) 97 07/25/17 04:00 121 07/25/17 00:48 18 07/25/17 00:00 99.4 116 18 124/58 (80) 97 07/24/17 20:00 100.0 118 18 121/57 (78) 98 07/24/17 19:45 Room Air 21 07/24/17 19:45 119 07/24/17 16:00 99.7 107 20 119/58 (78) 98 07/24/17 16:00 128 07/24/17 12:00 99.4 100 20 154/63 (93) 100 07/24/17 12:00 96 I/O 07/24/17 07/24/17 07/24/17 07/25/17 07/25/17 07/25/17 07:00 15:00 23:00 07:00 15:00 23:00 Intake Total 1787 ml 480 ml Balance 1787 ml 480 ml Intake Oral 360 ml 480 ml IV Total 1427 ml # Voids 5 4 3 # Bowel Movements 0 1 Result Diagram: 07/25/17 0600 07/22/17 0410 Imaging Last Impressions Chest X-Ray 07/25/17 0000 Signed Impressions: Service Date/Time: June 10:06 - CONCLUSION: Small infiltrate the right lung base. Left lung is clear. Herberth Esposito MD Objective Remarks GENERAL: WN, WD female resting in bed in [facility]. SKIN: Warm and dry. HEENT: AT/NC. Pupils equal and round. Sclera mildly icteric. MMM. NECK: Supple no tender LAD or JVD. CHEST: Chest wall TTP. HEART: Tachycardic with 2/6 EVELIO. LUNGS: CTAB without wheezes. Right basal crackles. ABDOMEN: +BS, soft, NT, ND. EXTREMITIES: No LE edema. 2+ pedal pulses. NEURO: Awake and alert. Nonfocal. PSYCH: Appropriate mood and affect. Procedures none A/P Problem List: (1) Sickle cell crisis ICD Code: D57.00 - Hb-SS disease with crisis, unspecified Status: Acute (2) Chest pain ICD Code: R07.9 - Chest pain, unspecified Status: Acute Assessment and Plan 56 YOAAF with sickle cell thalassemia admitted for acute vasoocclusive crisis. 1. Sickle cell vasoocclusive crisis - Recently admitted for crisis on 07/10-07/[address] Chin - Hemoglobin 9.7 on admission (was 7.5 on discharge last admission and she had been transfused 1 unit PRBC) - Pain control - IV fluids - Supplemental O2 - Heme consulted, appreciate reccs. Dr. Chin to follow today 2. Chest pain - Pt states quality is similar to prior vasoocclusive episodes but EKG showing T wave inversion in leads V4-V6 new from prior EKG on 07/10 - Troponins negative - Repeat EKG showed no more TWI but not with PVCs and bigeminy - No signs of acute chest such as consolidation on CXR, fever, or hypoxia - Telemetry 3. Anemia no gross bleeding possibly hemolyzing. Transfused to keep hemoglobin at least 8, patient agrees. 4. Hospital-acquired pneumonia with sepsis. Stat IV cefepime and IV Zithromax after blood cultures obtained urinary Legionella and pneumococcal antigen and sputum culture. Oxygen and nebulization as needed DVT prophylaxis: Fondaparinux since allergic to Lovenox and Heparin and patient with history of HIT Discharge Planning Patient is clinically worse we will transfer to ICU secondary to sepsis from pneumonia and severe anemia needing blood transfusion Problem Qualifiers (1) Chest pain: Qualified Codes: R07.9 - Chest pain, unspecified Jacek Cornell MD Jul 25, 2017 10:48
[2017-07-25] MEDS ORDERED: SODIUM CHLOR 0.9% 1000 ML INJ 1,000 ML IV SCH (11:00)
--- NOTE | 2017-07-25 11:13 | PD.ONC.PN ---
Subjective Subjective Remarks Tmax 101.8 overnight. Patient upset that her dilaudid was decreased to q 6 hours and that her fluids were stopped without her knowing. she is nervous about getting a blood transfusion as she says they don't usually make her feel good. She denies any shortness of breath, lightheadedness. she continues to have right sided chest pain which she has had since admission. she states the pain is unchanged. Objective Data Date Time Temp Pulse Resp B/P (MAP) Pulse Ox O2 Delivery O2 Flow Rate FiO2 07/25/17 08:00 99.7 110 16 109/59 (76) 99 07/25/17 05:30 100.2 07/25/17 05:30 16 07/25/17 04:53 16 07/25/17 04:30 101.8 122 18 114/56 (75) 97 07/25/17 04:00 121 07/25/17 00:48 18 07/25/17 00:00 99.4 116 18 124/58 (80) 97 07/24/17 20:00 100.0 118 18 121/57 (78) 98 07/24/17 19:45 Room Air 21 07/24/17 19:45 119 07/24/17 16:00 99.7 107 20 119/58 (78) 98 07/24/17 16:00 128 07/24/17 12:00 99.4 100 20 154/63 (93) 100 07/24/17 12:00 96 Result Diagram: 07/25/17 0600 07/22/17 0410 Laboratory Results Laboratory Tests Test 07/25/17 04:30 07/25/17 06:00 White Blood Count 6.0 TH/MM3 Red Blood Count 1.95 MIL/MM3 Hemoglobin 4.8 GM/DL 4.7 GM/DL Hematocrit 13.8 % 13.7 % Mean Corpuscular Volume 71.0 FL Mean Corpuscular Hemoglobin 24.6 PG Mean Corpuscular Hemoglobin Concent 34.6 % Red Cell Distribution Width 22.0 % Platelet Count 75 TH/MM3 Mean Platelet Volume 9.5 FL Neutrophils (%) (Auto) 73.7 % Lymphocytes (%) (Auto) 17.6 % Monocytes (%) (Auto) 7.4 % Eosinophils (%) (Auto) 0.4 % Basophils (%) (Auto) 0.9 % Neutrophils # (Auto) 4.4 TH/MM3 Lymphocytes # (Auto) 1.1 TH/MM3 Monocytes # (Auto) 0.4 TH/MM3 Eosinophils # (Auto) 0.0 TH/MM3 Basophils # (Auto) 0.1 TH/MM3 CBC Comment AUTO DIFF Differential Total Cells Counted 100 Neutrophils % (Manual) 81 % Band Neutrophils % 2 % Lymphocytes % 14 % Monocytes % 1 % Eosinophils % 2 % Neutrophils # (Manual) 5.0 TH/MM3 Differential Comment FINAL DIFF MANUAL Platelet Estimate LOW Platelet Morphology Comment NORMAL Sickle Cells 1+ Target Cells 1+ Tear Drop Cells 1+ Ovalocytes 1+ Keratocytes 1+ Imaging Studies Last 24 hours Impressions Chest X-Ray 07/25/17 0000 Signed Impressions: Service Date/Time: , July 25, 2017 10:06 - CONCLUSION: Small infiltrate the right lung base. Left lung is clear. Herberth Esposito MD Administered Medications Medications (Trade) Dose Ordered Sig/Natalie Route PRN Reason Start Time Stop Time Status Last Admin Dose Admin Sodium Chloride (NS Flush) 2 ml BID IV FLUSH 07/21/17 21:00 07/25/17 09:18 Acetaminophen (Tylenol) 650 mg Q4H PRN PO FEVER, HEADACHE 07/21/17 09:15 07/25/17 04:30 Folic Acid (Folate) 1 mg DAILY PO 07/22/17 09:00 07/25/17 09:18 Multivitamins (Theragran) 1 tab DAILY PO 07/22/17 09:00 07/22/17 08:43 Senna/Docusate Sodium (Chelsey-Colace) 1 tab BID PO 07/21/17 10:00 07/25/17 09:18 Methadone HCl (Dolophine) 10 mg TID PO 07/21/17 13:00 07/25/17 09:18 Fondaparinux (Arixtra Inj) 2.5 mg Q24H SQ 07/21/17 15:00 07/23/17 16:07 Hydromorphone HCl (Dilaudid Pf Inj) 1 mg Q6HR PRN IV PUSH PAIN 6-10 07/24/17 14:30 07/25/17 09:24 Hydromorphone HCl (Dilaudid Pf Inj) 2 mg Q6H PRN IV PUSH BREAKTHROUGH PAIN 07/24/17 14:30 07/25/17 00:18 Polyethylene Glycol (Miralax) 17 gm DAILY PO 07/25/17 09:00 07/25/17 09:18 Objective Remarks GENERAL: Middle aged female, lying supine in bed in nad. SKIN: Warm and dry. HEAD: Normocephalic. EYES: No injection or drainage. NECK: Supple, trachea midline. CARDIOVASCULAR: tachycardic rate, regular rhythm RESPIRATORY: occasional rhonchi. On O2 via NC GASTROINTESTINAL: Abdomen soft, non-tender, nondistended. EXTREMITIES: No cyanosis NEUROLOGICAL: awake and alert. normal speech. moving extremities. Assessment/Plan Problem List: (1) Sickle cell crisis ICD Codes: D57.00 - Hb-SS disease with crisis, unspecified Status: Acute Plan: 07/25: resume IVF, continue pain management. --Hydrea on hold --No sign of acute chest syndrome --Monitor CBC (2) Sepsis ICD Codes: A41.9 - Sepsis, unspecified organism Plan: --BC pending --started on abx (3) Thrombocytopenia ICD Codes: D69.6 - Thrombocytopenia, unspecified Assessment 56-year-old female admitted with sickle cell crisis Plan 1. I received a call from blood bank, there is no compatible blood for Ms. Vergara available at this time. They may have something this afternoon but cannot confirm this. I discussed this with Ms. Vergara and explained that while she is hemodynamically stable at this time I am going to move her to [facility] for monitoring as she could decompensate. 2. start IVF, check hepatic fxn panel d/w patient. Dr. Cornell, Dr. Chin, Dr. Perez, Dr. ibanez Attending Statement The exam, history, and the medical decision-making described in the above note were completed with the assistance of the mid-level provider. I reviewed and agree with the findings presented. I attest that I had a [id number] encounter with the patient on the same day, and personally performed and documented my assessment and findings in the medical record. Discussed w/ hospitalist. New community acquired pneumonia. Vaso occlusive crisis, noted reticulocytosis but still anemic. Waiting for best typed blood, pt has alot of antibodies. However, transfusion cannot be avoided due to symptoms from hgb 4.7. Agree with ICU monitoring Follow clinically. Continue pain regimen. Martha Conklin Jul 25, 2017 11:13 Pema Chin MD Jul 25, 2017 16:30
[2017-07-25 11:19] LABS: RETIC # 236.1 MIL/L (20.0-150.0); RETIC % 11.2 % (0.4-3.0)
[2017-07-25 11:25] LABS: ALBUMIN 3.2 GM/DL (3.4-5.0); CALCIUM 8.6 MG/DL (8.5-10.1); CREATININE 0.71 MG/DL (0.50-1.00); DIRECT BILIRUBIN ADULT 0.4 MG/DL (0.0-0.2)
[2017-07-25 11:27] LABS: INDIRECT BILIRUBIN 2.4 MG/DL (0.0-0.8); TOTAL BILIRUBIN ADULT 2.8 MG/DL (0.2-1.0); TOTAL PROTEIN 7.2 GM/DL (6.4-8.2); TROPONIN I LESS THAN 0.02 NG/ML (0.02-0.05)
[2017-07-25] MEDS: CEFEPIME INJ 2,000 MG in SODIUM CHLORIDE 0.9% INJ 100 ML IV SCH ×2 (14:00→20:22)
[2017-07-25] MEDS: AZITHROMYCIN INJ 500 MG in SODIUM CHLOR 0.9% 250 ML INJ 250 ML IV SCH (14:42)
[2017-07-25] MEDS: FONDAPARINUX SODIUM 2.5 MG/0.5 ML SYRINGE SQ SCH (14:42)
[2017-07-25] MEDS ORDERED: HYDROmorphone HCL PF 0.5 MG/0.5 ML SYRINGE IV PUSH PRN (15:00)
[2017-07-25] MEDS ORDERED: SODIUM CHLORIDE 0.9% FLUSH 10 ML FLUSH IV FLUSH PRN (15:15)
[2017-07-25] MEDS ORDERED: NURSING INFORMATION XX SCH (15:15)
[2017-07-25] MEDS ORDERED: ACETAMINOPHEN 325 MG TAB PO PRN (15:15)
[2017-07-25] MEDS ORDERED: RESP: ALBUTEROL 2.5 MG/IPRATROPIUM 0.5 MG NEB (PRN) INH (15:15)
[2017-07-25] MEDS ORDERED: CHLORHEXIDINE GLUCONATE 2 % 1 PACK (2 CLOTHS) TOP PRN (15:15)
--- NOTE | 2017-07-25 15:15 | PD.CONS ---
HPI Service Critical Care Medicine Consult Requested By Heme-Onc Reason for Consult Anemia, Tachycardia Primary Care Physician Earl Castro MD History of Present Illness This is a 56-year-old -[place] female that has a history of sickle cell disease. She was on the medical surgical floor patient was noted to be anemic and tachycardic. Critical care medicine was consulted secondary to the tachycardia. Patient scheduled for blood transfusion however unable to obtain at this time secondary to multiple antibodies, no products available. Patient complains of moderate to severe pain secondary to sickle cell crisis, tolerable with Dilaudid, frequency increased to every 4 hours. Review of Systems Cardiovascular: COMPLAINS OF: Palpitations Musculoskeletal: COMPLAINS OF: Joint pain Past Family Social History Allergies: Coded Allergies: enoxaparin (Unverified Allergy, Severe, UNKNOWN REACTION, 07/09/17) pt states she has platlet count problems when heparin used to flush the infusaport heparin (porcine) (Unverified Allergy, Severe, UNKNOWN REACTION, 07/09/17) pt states she has platlet count problems when heparin used to flush the infusaport Past Medical History Sickle cell thalassemia Past Surgical History Partial hysterectomy, cholecystectomy, bilateral tubal ligation Reported Medications Reviewed Active Ordered Medications See MAR Family History 2 siblings with sickle cell trait Social History Denies EtOH, tobacco use or illicit drug use Physical Exam Vital Signs Vital Signs Date Time Temp Pulse Resp B/P (MAP) Pulse Ox O2 Delivery O2 Flow Rate FiO2 07/25/17 12:00 100.6 111 18 112/56 (74) 97 07/25/17 11:09 100 21 07/25/17 08:00 113 07/25/17 08:00 99.7 110 16 109/59 (76) 99 07/25/17 05:30 100.2 07/25/17 05:30 16 07/25/17 04:53 16 07/25/17 04:30 101.8 122 18 114/56 (75) 97 07/25/17 04:00 121 07/25/17 00:48 18 07/25/17 00:00 99.4 116 18 124/58 (80) 97 07/24/17 20:00 100.0 118 18 121/57 (78) 98 07/24/17 19:45 Room Air 21 07/24/17 19:45 119 07/24/17 16:00 99.7 107 20 119/58 (78) 98 07/24/17 16:00 128 Physical Exam GENERAL: This is a well-developed well-nourished -[place] female of stated age in moderate distress secondary to pain SKIN: Warm and dry. HEAD: Atraumatic. Normocephalic. EYES: Pupils equal and round. No scleral icterus. No injection or drainage. ENT: No nasal bleeding or discharge. Mucous membranes pink and moist. NECK: Trachea midline. No JVD. CARDIOVASCULAR: Tachycardic rate 110-120, regular rhythm. Telemetry sinus tach. Normotensive RESPIRATORY: No accessory muscle use. Clear to auscultation. Breath sounds equal bilaterally. GASTROINTESTINAL: Abdomen soft, non-tender, nondistended. No guarding. MUSCULOSKELETAL: Extremities without clubbing, cyanosis, or edema. No obvious deformities. NEUROLOGICAL: Awake and alert. RASS 0. No gross focal/sensory deficits. Follows commands in all 4 extremities. Laboratory Laboratory Tests Test 07/25/17 04:30 07/25/17 06:00 07/25/17 10:55 White Blood Count 6.0 Red Blood Count 1.95 Hemoglobin 4.8 4.7 Hematocrit 13.8 13.7 Mean Corpuscular Volume 71.0 Mean Corpuscular Hemoglobin 24.6 Mean Corpuscular Hemoglobin Concent 34.6 Red Cell Distribution Width 22.0 Platelet Count 75 Mean Platelet Volume 9.5 Neutrophils (%) (Auto) 73.7 Lymphocytes (%) (Auto) 17.6 Monocytes (%) (Auto) 7.4 Eosinophils (%) (Auto) 0.4 Basophils (%) (Auto) 0.9 Neutrophils # (Auto) 4.4 Lymphocytes # (Auto) 1.1 Monocytes # (Auto) 0.4 Eosinophils # (Auto) 0.0 Basophils # (Auto) 0.1 CBC Comment AUTO DIFF Differential Total Cells Counted 100 Neutrophils % (Manual) 81 Band Neutrophils % 2 Lymphocytes % 14 Monocytes % 1 Eosinophils % 2 Neutrophils # (Manual) 5.0 Differential Comment FINAL DIFF MANUAL Platelet Estimate LOW Platelet Morphology Comment NORMAL Sickle Cells 1+ Target Cells 1+ Tear Drop Cells 1+ Ovalocytes 1+ Keratocytes 1+ Reticulocyte Count 11.2 Absolute Reticulocyte Count 236.1 Blood Urea Nitrogen 9 Creatinine 0.71 Random Glucose 103 Total Protein 7.2 Albumin 3.2 Calcium Level 8.6 Alkaline Phosphatase 60 Aspartate Amino Transf (AST/SGOT) 85 Alanine Aminotransferase (ALT/SGPT) 23 Total Bilirubin 2.8 Direct Bilirubin 0.4 Sodium Level 139 Potassium Level 4.2 Chloride Level 105 Carbon Dioxide Level 28.0 Anion Gap 6 Estimat Glomerular Filtration Rate 103 Indirect Bilirubin 2.4 Lactate Dehydrogenase 701 Troponin I LESS THAN 0.02 Date/Time Source Procedure Growth Status 07/25/17 13:15 Blood Peripheral Aerobic Blood Culture Pending Received 07/25/17 13:15 Blood Peripheral Anaerobic Blood Culture Pending Received 07/21/17 06:05 Urine Clean Catch Urine Culture - Final 10-50,000 CFU/ML MIXED GRAM POSITIVE ... Complete Result Diagram: 07/25/17 0600 07/25/17 1055 Imaging Last Impressions Chest X-Ray 07/25/17 0000 Signed Impressions: Service Date/Time: , July 25, 2017 10:06 - CONCLUSION: Small infiltrate the right lung base. Left lung is clear. Herberth Esposito MD Septic Shock Reassessment Septic shock perfusion: reassessment completed Assessment and Plan Problem List: (1) Sickle cell disease ICD Code: D57.1 - Sickle-cell disease without crisis Status: Chronic (2) Sickle cell crisis ICD Code: D57.00 - Hb-SS disease with crisis, unspecified Status: Acute (3) Chronic pain ICD Code: G89.29 - Other chronic pain Assessment and Plan Assessment 1.Sickle cell disease 2. Anemia 3. Sinus tachycardia secondary to anemia sickle cell anemia 4. Chronic pain secondary to sickle cell disease Plan by systems: Neurologic: Increased frequency of Dilaudid to 1 mg every 4 hours as needed Dilaudid 2 mg every 6 hours as needed for breakthrough pain Neuro checks per ICU protocol Tylenol 650 mg every 6 hours as needed for fever Respiratory: Maintain O2 saturation greater than 92 % Provide O2 nasal cannula 1-4 LPM ABGs and chest x-rays when clinically indicated Incentive spirometry while awake Duo nebs as needed for wheezing Cardiovascular: Sinus tachycardia secondary to anemia Maintain map greater than 65 Monitor heart rate currently 110-120, normotensive Renal: No Campos indicated at this time -- Strict I/Os FEN/GI: Normal saline at 84 cc/hr Electrolyte replacement per ICU protocol Regular diet Bowel regimen Zofran for nausea Famotidine GI prophylaxis Heme/ID: Blood products incompatible secondary to antibodies. Awaiting PRBC's that are compatible Monitor CBC Obtain blood and urine cultures if clinically indicated Endocrine: Glucose monitoring per ICU protocol -- SSI Prophylaxis: GI Prophylaxis Famotidine DVT Prophylaxis -- SCDs Lines: Peripheral IVs 2. Central line if indicated Dispo: Level 3 admission Code Status Full Discussed Condition With Patient, patient's mother, MANAGER [employer]LECT[employer] at bedside (Kylee) Problem Qualifiers (1) Sickle cell disease: Qualified Codes: D57.00 - Hb-SS disease with crisis, unspecified Rebecca Burroughs MD Jul 25, 2017 15:15
[2017-07-25] MEDS: SODIUM CHLOR 0.9% 1000 ML INJ 1,000 ML IV SCH (15:33)
--- NOTE | 2017-07-25 16:20 | EKG ---
Date Performed: 07/25/2017 Time Performed: 11:11:51 PTAGE: 56 years EKG: SINUS TACHYCARDIA WITH OCCASIONAL VENTRICULAR PREMATURE COMPLEXES POSSIBLE LEFT ATRIAL ENLA RGEMENT MODERATE T-WAVE ABNORMALITY, CONSIDER ANTERIOR ISCHEMIA ABNORMAL ECG PREVIOUS TRACING : 07/23/2017 15.11 DOCTOR: Huey Rodriguez Interpretating Date/Time 07/25/2017 16:15:53
[2017-07-25] MEDS ORDERED: GLUCAGON 1 MG/ML VIAL OTHER PRN (17:45)
[2017-07-25] MEDS ORDERED: DEXTROSE 50% IN WATER 50 ML VIAL(D50) IV PUSH PRN (17:45)
[2017-07-25] MEDS: FAMOTIDINE 20 MG/2 ML VIAL IV PUSH SCH (20:22)
[2017-07-25] MEDS: INSULIN ASPART SUPPLEMENTAL SCALE SQ SCH (20:25)
[2017-07-25] MEDS ORDERED: SODIUM CHLORIDE 0.9% FLUSH 10 ML FLUSH IV FLUSH SCH (21:00)
[2017-07-25] MEDS ORDERED: DOCUSATE SODIUM 50 MG/SENNA 8.6 MG TAB PO SCH (21:00)
[2017-07-26] VITALS (17 sets, daily range): BP systolic 100–140; BP diastolic 51–77; PULSE 83–112; RESP 10–21; TEMP 98.1–99.4; O2SAT 100
[2017-07-26] MEDS: SODIUM CHLOR 0.9% 1000 ML INJ 1,000 ML IV SCH (01:36)
[2017-07-26] MEDS ORDERED: oxyCODONE/ACETAMINOPHEN 5 MG/325 MG TAB PO SCH (03:30)
[2017-07-26] MEDS: CHLORHEXIDINE GLUCONATE 2 % 1 PACK (2 CLOTHS) TOP SCH (03:32)
[2017-07-26] MEDS: HYDROmorphone HCL PF 0.5 MG/0.5 ML SYRINGE IV PUSH PRN ×2 (05:29→20:04)
[2017-07-26] MEDS: INSULIN ASPART SUPPLEMENTAL SCALE SQ SCH ×4 (08:00→20:10)
[2017-07-26] MEDS: SODIUM CHLORIDE 0.9% FLUSH 10 ML FLUSH IV FLUSH SCH ×2 (08:40→20:03)
[2017-07-26] MEDS: FOLIC ACID 1 MG TAB PO SCH (08:40)
[2017-07-26] MEDS: DOCUSATE SODIUM 50 MG/SENNA 8.6 MG TAB PO SCH ×2 (08:43→20:04)
[2017-07-26] MEDS: METHADONE HCL 10 MG TAB PO SCH ×3 (08:43→17:06)
[2017-07-26] MEDS: POLYETHYLENE GLYCOL 17 GM PKG PO SCH (08:43)
[2017-07-26] MEDS: MULTIVITAMIN TAB PO SCH ×2 (08:43→08:49)
[2017-07-26] MEDS: FAMOTIDINE 20 MG/2 ML VIAL IV PUSH SCH ×2 (09:52→20:04)
[2017-07-26] MEDS: CEFEPIME INJ 2,000 MG in SODIUM CHLORIDE 0.9% INJ 100 ML IV SCH ×2 (09:53→19:04)
[2017-07-26] MEDS: HYDROmorphone HCL PF 2 MG/ML VIAL IV PUSH PRN ×4 (10:12→23:01)
[2017-07-26] MEDS: AZITHROMYCIN INJ 500 MG in SODIUM CHLOR 0.9% 250 ML INJ 250 ML IV SCH (10:56)
--- NOTE | 2017-07-26 11:16 | HHI.CCPN ---
Subjective Remarks/Hospital Course This is a 56-year-old -[place] female that has a history of sickle cell disease. She was on the medical surgical floor patient was noted to be anemic and tachycardic. Critical care medicine was consulted secondary to the tachycardia. Patient scheduled for blood transfusion however unable to obtain at this time secondary to multiple antibodies, no products available. Patient complains of moderate to severe pain secondary to sickle cell crisis, tolerable with Dilaudid, frequency increased to every 4 hours. 07/26 Patient is on 2L oxygen relieving blood transfusions ( 2units ordered). Awake and alert. Objective Vital Signs Date Time Temp Pulse Resp B/P (MAP) Pulse Ox O2 Delivery O2 Flow Rate FiO2 07/26/17 10:43 14 07/26/17 09:04 100 Nasal Cannula 2.00 07/26/17 06:00 84 07/26/17 04:00 99.1 107/65 (79) 07/25/17 11:09 21 Intake and Output 07/26/17 07/26/17 07/27/17 08:00 16:00 00:00 Intake Total 280 ml 400 ml Output Total 800 ml Balance -520 ml 400 ml Result Diagram: 07/25/17 0600 07/25/17 1055 Other Results Laboratory Tests Test 07/25/17 13:07 Nasal Screen MRSA (PCR) MRSA NOT DETECTED Imaging Last Impressions Chest X-Ray 07/25/17 0000 Signed Impressions: Service Date/Time: June 10:06 - CONCLUSION: Small infiltrate the right lung base. Left lung is clear. Herberth Esposito MD Procedures none Objective Remarks GENERAL: This is a well-developed well-nourished -[place] female lying in bed in [facility] SKIN: Warm and dry. HEAD: Atraumatic. Normocephalic. EYES: Pupils equal and round. No scleral icterus. No injection or drainage. ENT: No nasal bleeding or discharge. Mucous membranes pink and moist. NECK: Trachea midline. No JVD. CARDIOVASCULAR: Tachycardic rate 110-120, regular rhythm. Telemetry sinus tach. Normotensive RESPIRATORY: No accessory muscle use. Clear to auscultation. Breath sounds equal bilaterally. GASTROINTESTINAL: Abdomen soft, non-tender, nondistended. No guarding. MUSCULOSKELETAL: Extremities without clubbing, cyanosis, or edema. No obvious deformities. NEUROLOGICAL: Awake and alert. A/P Problem List: (1) Sickle cell disease ICD Code: D57.1 - Sickle-cell disease without crisis Status: Chronic (2) Sickle cell crisis ICD Code: D57.00 - Hb-SS disease with crisis, unspecified Status: Acute (3) Chronic pain ICD Code: G89.29 - Other chronic pain Assessment and Plan 1)Resp Insuff 2)Sickle cell crisis 3)Anemia 4)Chronic pain secondary to sickle cell disease 5)Thrombocytopenia 6)UTI Plan Neuro On Dilaudid to 1 mg every 4 hours as needed Dilaudid 2 mg every 6 hours as needed for breakthrough pain Neuro checks per ICU protocol Tylenol 650 mg every 6 hours as needed for fever Pulm: Continue with oxygen keep sats > 92 % Bronchodilators Incentive spirometry while awake CV: Monitor HR and BP keep MAP>65mmHg Renal: Monitor renal function, I/O's, electrolytes replacement per protocol FEN/GI: Normal saline at 84 cc/hr On PO diet Regular diet Bowel regimen Zofran for nausea Famotidine GI prophylaxis Heme Blood products incompatible secondary to antibodies. Being transfused 2uPRBC, check H/H post transfusion Monitor CBC. Heme is following ID Continue with abx ( Cefepime, Zithromax) monitor for signs of infections ( Fever , WBC) Follow up on blood culture, check sputum and urine cxs Endocrine: Glucose monitoring per ICU protocol -- SSI Prophylaxis: GI Prophylaxis Famotidine DVT Prophylaxis -- SCDs Lines: Peripheral IVs 2. Dispo: Level 2 Problem Qualifiers (1) Sickle cell disease: Qualified Codes: D57.00 - Hb-SS disease with crisis, unspecified Yohannes Lancaster MD Jul 26, 2017 11:16
[2017-07-26 11:47] LABS: AUTOMATED NEUTROPHIL # 3.5 TH/MM3 (1.8-7.7); BASOPHIL % 0.5 % (0.0-2.0); EOSINOPHIL # 0.1 TH/MM3 (0-0.4); EOSINOPHIL % 1.1 % (0.0-4.0); LYMPH % 20.6 % (9.0-44.0); MEAN CELL VOLUME 74.7 FL (80.0-100.0); MEAN CORPUSCULAR HEMOGLOBIN 25.5 PG (27.0-34.0); MEAN CORPUSCULAR HGB CONC 34.1 % (32.0-36.0); MEAN PLATELET VOLUME 9.5 FL (7.0-11.0); MONO % 6.8 % (0.0-8.0); MONOCYTE # 0.3 TH/MM3 (0-0.9); PLATELET COUNT 83 TH/MM3 (150-450); RED CELL DISTRIBUTION WIDTH 22.5 % (11.6-17.2); WHITE BLOOD COUNT 4.9 TH/MM3 (4.0-11.0)
[2017-07-26 11:53] LABS: HEMATOCRIT 20.2 % (35.0-46.0); HEMOGLOBIN 6.9 GM/DL (11.6-15.3)
[2017-07-26 12:15] LABS: ALBUMIN 2.9 GM/DL (3.4-5.0); ALT (GPT) 20 U/L (10-53); AST (GOT) 74 U/L (15-37); BICARBONATE 26.9 MEQ/L (21.0-32.0); BLOOD UREA NITROGEN 7 MG/DL (7-18); CALCIUM 8.8 MG/DL (8.5-10.1); CHLORIDE 108 MEQ/L (98-107); CREATININE 0.64 MG/DL (0.50-1.00); GLOMERULAR FILTRATION RATE 117 ML/MIN (>89); GLUCOSE,RANDOM 81 MG/DL (74-106); SODIUM (NA) 139 MEQ/L (136-145)
[2017-07-26 12:18] LABS: ALKALINE PHOSPHATASE 60 U/L (45-117); TOTAL BILIRUBIN ADULT 2.5 MG/DL (0.2-1.0); TOTAL PROTEIN 6.7 GM/DL (6.4-8.2)
[2017-07-26 12:33] LABS: BANDS 1 % (0-6); BASOPHILS 1 % (0-2); CORRECTED NUCLEATED RBC 2 /100 WBC (0-0); LYMPHOCYTES 19 % (9-44); METAMYELOCYTES 1 % (0-1); MONOCYTES 4 % (0-8); NEUTROPHIL # MANUAL DIFF 3.6 TH/MM3 (1.8-7.7); NUCLEATED RED BLOOD CELL 2 (0-0); POLYS (SEG NEUTROPHILS) 72 % (16-70)
[2017-07-26 12:34] LABS: KERATOCYTES OCC (NORMAL); OVALOCYTES 1+ (NORMAL); TEARDROP RBCS 1+ (NORMAL)
[2017-07-26 12:35] LABS: POLYCHROMASIA 2.1 % (0.0-1.9)
--- NOTE | 2017-07-26 13:47 | PD.ONC.PN ---
Subjective Subjective Remarks Afebrile overnight. Patient resting in bed. Eager [place] be [place] out [place] [facility]. still having right sided chest pain. no dizziness or shortness of breath. no cough. Objective Data Date Time Temp Pulse Resp B/P (MAP) Pulse Ox O2 Delivery O2 Flow Rate FiO2 07/26/17 12:00 93 07/26/17 12:00 98.4 93 20 118/74 (89) 100 07/26/17 10:43 14 07/26/17 10:00 96 07/26/17 09:53 14 07/26/17 09:04 100 Nasal Cannula 2.00 07/26/17 08:00 98.7 88 10 105/56 (72) 100 07/26/17 08:00 88 07/26/17 07:00 100 Nasal Cannula 2.00 07/26/17 06:00 84 07/26/17 05:59 16 07/26/17 04:46 12 07/26/17 04:00 94 07/26/17 04:00 99.1 94 12 107/65 (79) 100 07/26/17 02:52 99.4 101 16 111/60 100 07/26/17 02:37 99.0 103 17 100/51 100 07/26/17 02:00 97 07/26/17 00:00 95 07/26/17 00:00 98.1 95 13 112/59 (76) 100 07/25/17 22:00 101 07/25/17 20:00 97.7 106 12 126/68 (87) 100 07/25/17 20:00 106 07/25/17 19:00 Nasal Cannula 2.00 07/25/17 18:00 98 07/25/17 16:00 104 07/25/17 16:00 99.2 104 15 109/57 (74) 100 07/25/17 15:29 10 07/25/17 15:00 11 07/26/17 07/26/17 07/26/17 07:00 15:00 23:00 Intake Total 680 ml 400 ml Output Total 800 ml Balance -120 ml 400 ml Result Diagram: 07/26/17 1110 07/26/17 1110 Laboratory Results Laboratory Tests Test 07/26/17 11:10 White Blood Count 4.9 TH/MM3 Red Blood Count 2.70 MIL/MM3 Hemoglobin 6.9 GM/DL Hematocrit 20.2 % Mean Corpuscular Volume 74.7 FL Mean Corpuscular Hemoglobin 25.5 PG Mean Corpuscular Hemoglobin Concent 34.1 % Red Cell Distribution Width 22.5 % Platelet Count 83 TH/MM3 Mean Platelet Volume 9.5 FL Neutrophils (%) (Auto) 71.0 % Lymphocytes (%) (Auto) 20.6 % Monocytes (%) (Auto) 6.8 % Eosinophils (%) (Auto) 1.1 % Basophils (%) (Auto) 0.5 % Neutrophils # (Auto) 3.5 TH/MM3 Lymphocytes # (Auto) 1.0 TH/MM3 Monocytes # (Auto) 0.3 TH/MM3 Eosinophils # (Auto) 0.1 TH/MM3 Basophils # (Auto) 0.0 TH/MM3 CBC Comment AUTO DIFF Differential Total Cells Counted 100 Neutrophils % (Manual) 72 % Band Neutrophils % 1 % Lymphocytes % 19 % Monocytes % 4 % Eosinophils % 2 % Basophils % 1 % Neutrophils # (Manual) 3.6 TH/MM3 Metamyelocytes 1 % Nucleated Red Blood Cells 2 /100 WBC Differential Comment FINAL DIFF MANUAL Platelet Estimate LOW Platelet Morphology Comment NORMAL Polychromasia 2.1 % Basophilic Stippling MOD Tear Drop Cells 1+ Ovalocytes 1+ Keratocytes OCC Blood Urea Nitrogen 7 MG/DL Creatinine 0.64 MG/DL Random Glucose 81 MG/DL Total Protein 6.7 GM/DL Albumin 2.9 GM/DL Calcium Level 8.8 MG/DL Alkaline Phosphatase 60 U/L Aspartate Amino Transf (AST/SGOT) 74 U/L Alanine Aminotransferase (ALT/SGPT) 20 U/L Total Bilirubin 2.5 MG/DL Sodium Level 139 MEQ/L Potassium Level 4.2 MEQ/L Chloride Level 108 MEQ/L Carbon Dioxide Level 26.9 MEQ/L Anion Gap 4 MEQ/L Estimat Glomerular Filtration Rate 117 ML/MIN Magnesium Level 2.0 MG/DL Culture Results Microbiology Date/Time Source Procedure Growth Status 07/25/17 13:15 Blood Peripheral Aerobic Blood Culture - Preliminary NO GROWTH IN 1 DAY Resulted 07/25/17 13:15 Blood Peripheral Anaerobic Blood Culture - Preliminary NO GROWTH IN 1 DAY Resulted 07/25/17 12:45 Blood Peripheral Aerobic Blood Culture - Preliminary NO GROWTH IN 1 DAY Resulted 07/25/17 12:45 Blood Peripheral Anaerobic Blood Culture - Preliminary NO GROWTH IN 1 DAY Resulted 07/26/17 03:15 Stool Stool Stool Occult Blood (NETTE) - Final HEMOCCULT NEGATIVE Complete Administered Medications Medications (Trade) Dose Ordered Sig/Natalie Route PRN Reason Start Time Stop Time Status Last Admin Dose Admin Sodium Chloride (NS Flush) 2 ml BID IV FLUSH 07/21/17 21:00 07/26/17 08:40 Folic Acid (Folate) 1 mg DAILY PO 07/22/17 09:00 07/26/17 08:40 Multivitamins (Theragran) 1 tab DAILY PO 07/22/17 09:00 07/22/17 08:43 Senna/Docusate Sodium (Chelsey-Colace) 1 tab BID PO 07/21/17 10:00 07/25/17 09:18 Methadone HCl (Dolophine) 10 mg TID PO 07/21/17 13:00 07/26/17 12:56 Fondaparinux (Arixtra Inj) 2.5 mg Q24H SQ 07/21/17 15:00 Future Hold 07/25/17 14:42 Magnesium Hydroxide (Milk Of Radha Lisusu) 30 ml Q12H PRN PO Mild constipation 07/25/17 05:45 07/25/17 20:22 Polyethylene Glycol (Miralax) 17 gm DAILY PO 07/25/17 09:00 07/25/17 09:18 Azithromycin 500 mg/Sodium Chloride 250 ml @ 250 mls/hr Q24H IV 07/25/17 11:00 07/26/17 10:56 Sodium Chloride 1,000 ml @ 84 mls/hr [id number] IV 07/25/17 15:05 07/26/17 01:36 Famotidine (Pepcid Inj) 20 mg Q12HR IV PUSH 07/25/17 21:00 07/26/17 09:52 Miscellaneous Information 1 Q361D XX 07/25/17 15:15 07/25/17 15:15 Chlorhexidine Gluconate (Chlorhexidine 2% Cloth) 3 pack Taper DAILY@04 TOP 07/26/17 04:00 07/22/18 03:59 07/26/17 03:32 Hydromorphone HCl (Dilaudid Pf Inj) 2 mg Q3HR PRN IV PUSH PAIN 6-10 07/25/17 16:45 07/26/17 13:39 Hydromorphone HCl (Dilaudid Pf Inj) 1 mg Q3HR PRN IV PUSH PAIN SCALE 1 TO 5 07/25/17 16:45 07/26/17 05:29 Objective Remarks GENERAL: Middle aged female, supine in bed resting. SKIN: Warm and dry. HEAD: Normocephalic. EYES: No injection or drainage. NECK: Supple, trachea midline. CARDIOVASCULAR: tachycardic rate, regular rhythm RESPIRATORY: crackles, right base, otherwise clear. on 2L O2 GASTROINTESTINAL: Abdomen soft, non-tender, nondistended. EXTREMITIES: No cyanosis NEUROLOGICAL: awake, alert. normal speech. moving all extremities. Assessment/Plan Problem List: (1) Sickle cell crisis ICD Codes: D57.00 - Hb-SS disease with crisis, unspecified Status: Acute Plan: 07/26: continue supportive care with IVF, pain management. --Hydrea on hold --No sign of acute chest syndrome --Monitor CBC (2) Sepsis ICD Codes: A41.9 - Sepsis, unspecified organism Plan: --BC no growth --on Zithromax (3) Thrombocytopenia ICD Codes: D69.6 - Thrombocytopenia, unspecified Assessment 56-year-old female admitted with sickle cell crisis Plan 1. ok to transfer to regular floor from hematology perspective. 2. will ask blood bank to obtain a unit of blood but will hold off on giving it for now as she is reticent to have another blood transfusion and is asymptomatic and hemodynamically stable. Attending Statement The exam, history, and the medical decision-making described in the above note were completed with the assistance of the mid-level provider. I reviewed and agree with the findings presented. I attest that I had a [id number] encounter with the patient on the same day, and personally performed and documented my assessment and findings in the medical record. Discussed with Blood Bank attending new Jauregui antibody, it took time to get blood negative for Jauregui A and Jauregui B antigens. Tired but hemodynamically stable. No overt bleed but Arixtra held for now. Continue to monitor after transfusion. Pain medication for her crisis continue. Martha Conklin Jul 26, 2017 13:47 Pema Chin MD Jul 26, 2017 16:59
[2017-07-26] MEDS ORDERED: CEFEPIME INJ 2,000 MG in SODIUM CHLORIDE 0.9% INJ 100 ML IV SCH (18:00)
[2017-07-26 20:52] LABS: HEMATOCRIT 24.4 % (35.0-46.0); HEMOGLOBIN 8.3 GM/DL (11.6-15.3)
[2017-07-27] VITALS (11 sets, daily range): BP systolic 128–140; BP diastolic 65–82; PULSE 81–90; RESP 16–23; TEMP 97.3–99.1; O2SAT 97–100
[2017-07-27] MEDS: CEFEPIME INJ 2,000 MG in SODIUM CHLORIDE 0.9% INJ 100 ML IV SCH ×2 (01:59→08:29)
[2017-07-27] MEDS: SODIUM CHLOR 0.9% 1000 ML INJ 1,000 ML IV SCH ×3 (02:04→21:30)
[2017-07-27] MEDS: HYDROmorphone HCL PF 2 MG/ML VIAL IV PUSH PRN ×7 (02:06→21:32)
[2017-07-27] MEDS: CHLORHEXIDINE GLUCONATE 2 % 1 PACK (2 CLOTHS) TOP SCH (03:59)
--- NOTE | 2017-07-27 04:44 | RADRPT ---
EXAM DATE/TIME: 07/27/2017 03:39 [place] COMPARISON: CHEST SINGLE AP, July 25, 2017, 10:06. INDICATIONS : Shortness of breath, possible pulmonary disease. MEDICAL HISTORY : Sickle Cell disease. Thrombocytopenia. Chronic anemia.Hyperbilirubinemia. SURGICAL HISTORY : Hysterectomy. [id number] ENCOUNTER: Subsequent ACUITY: 1 week PAIN SCORE: Non-responsive. LOCATION: Bilateral chest FINDINGS: [id number] catheter tip in the mid superior vena cava. There are new bilateral airspace infiltrat es centrally and in both lower lungs. There is loss of delineation of portions of both hemidiaphragm s. Heart size stable. CONCLUSION: Interval development of central and bilateral lower lung air space opacities. Horacio Glalego MD on July 27, 2017 at 4:40 Board Certified Radiologist. This report was verified electronically.
[2017-07-27 06:08] LABS: AUTOMATED NEUTROPHIL # 4.2 TH/MM3 (1.8-7.7); BASOPHIL % 0.8 % (0.0-2.0); EOSINOPHIL # 0.1 TH/MM3 (0-0.4); EOSINOPHIL % 1.9 % (0.0-4.0); HEMATOCRIT 27.4 % (35.0-46.0); HEMOGLOBIN 9.3 GM/DL (11.6-15.3); LYMPH % 23.5 % (9.0-44.0); LYMPHOCYTE # 1.4 TH/MM3 (1.0-4.8); MEAN CELL VOLUME 76.1 FL (80.0-100.0); MEAN CORPUSCULAR HEMOGLOBIN 25.9 PG (27.0-34.0); MEAN PLATELET VOLUME 8.7 FL (7.0-11.0); MONO % 4.9 % (0.0-8.0); MONOCYTE # 0.3 TH/MM3 (0-0.9); NEUT % 68.9 % (16.0-70.0); PLATELET COUNT 96 TH/MM3 (150-450); RED CELL DISTRIBUTION WIDTH 21.9 % (11.6-17.2); WHITE BLOOD COUNT 6.1 TH/MM3 (4.0-11.0)
[2017-07-27 06:13] LABS: ALBUMIN 3.2 GM/DL (3.4-5.0); AST (GOT) 69 U/L (15-37); BICARBONATE 23.8 MEQ/L (21.0-32.0); BLOOD UREA NITROGEN 8 MG/DL (7-18); CALCIUM 9.2 MG/DL (8.5-10.1); CHLORIDE 109 MEQ/L (98-107); CREATININE 0.77 MG/DL (0.50-1.00); GLOMERULAR FILTRATION RATE 94 ML/MIN (>89); GLUCOSE,RANDOM 86 MG/DL (74-106); SODIUM (NA) 142 MEQ/L (136-145)
[2017-07-27 06:17] LABS: ALKALINE PHOSPHATASE 68 U/L (45-117); ALT (GPT) 20 U/L (10-53); TOTAL BILIRUBIN ADULT 2.9 MG/DL (0.2-1.0); TOTAL PROTEIN 7.4 GM/DL (6.4-8.2)
[2017-07-27] MEDS: INSULIN ASPART SUPPLEMENTAL SCALE SQ SCH ×3 (08:00→21:00)
[2017-07-27] MEDS: MULTIVITAMIN TAB PO SCH (08:29)
[2017-07-27] MEDS: FAMOTIDINE 20 MG/2 ML VIAL IV PUSH SCH (08:29)
[2017-07-27] MEDS: SODIUM CHLORIDE 0.9% FLUSH 10 ML FLUSH IV FLUSH SCH ×2 (08:30→21:30)
[2017-07-27] MEDS: METHADONE HCL 10 MG TAB PO SCH ×3 (08:30→17:51)
[2017-07-27] MEDS: FOLIC ACID 1 MG TAB PO SCH (08:30)
[2017-07-27] MEDS: DOCUSATE SODIUM 50 MG/SENNA 8.6 MG TAB PO SCH ×2 (09:00→21:00)
[2017-07-27] MEDS: POLYETHYLENE GLYCOL 17 GM PKG PO SCH (09:00)
[2017-07-27 09:08] LABS: BANDS 2 % (0-6); CORRECTED NUCLEATED RBC 7 /100 WBC (0-0); LYMPHOCYTES 10 % (9-44); MONOCYTES 3 % (0-8); NEUTROPHIL # MANUAL DIFF 5.3 TH/MM3 (1.8-7.7); NUCLEATED RED BLOOD CELL 7 (0-0); POLYS (SEG NEUTROPHILS) 85 % (16-70)
--- NOTE | 2017-07-27 09:08 | PD.ONC.PN ---
Subjective Subjective Remarks Afebrile overnight. patient tired of being in IMC. She wants to be moved to a regular floor. she continues to have right sided chest pain but otherwise no pain. she feels short of breath with exertion only. Objective Data Date Time Temp Pulse Resp B/P (MAP) Pulse Ox O2 Delivery O2 Flow Rate FiO2 07/27/17 06:00 81 07/27/17 05:55 12 07/27/17 04:00 82 16 140/66 (90) 100 07/27/17 04:00 82 07/27/17 02:00 85 07/27/17 00:00 85 07/27/17 00:00 85 16 130/65 (86) 100 07/26/17 22:00 91 07/26/17 20:34 15 07/26/17 20:00 112 07/26/17 20:00 98.8 112 14 140/77 (98) 100 07/26/17 19:00 100 Nasal Cannula 2.00 07/26/17 18:06 10 07/26/17 18:00 83 07/26/17 16:20 99.0 89 10 112/63 100 07/26/17 16:00 98.9 91 14 112/63 (79) 100 07/26/17 16:00 91 07/26/17 15:59 98.9 90 21 110/63 100 07/26/17 14:00 99 07/26/17 12:00 93 07/26/17 12:00 98.4 93 20 118/74 (89) 100 07/26/17 10:00 96 07/27/17 07/27/17 07/27/17 07:00 15:00 23:00 Intake Total 1580 ml Balance 1580 ml Result Diagram: 07/27/17 0500 07/27/17 0500 Laboratory Results Laboratory Tests Test 07/26/17 11:10 07/26/17 20:00 07/27/17 05:00 White Blood Count 4.9 TH/MM3 6.1 TH/MM3 Red Blood Count 2.70 MIL/MM3 3.60 MIL/MM3 Hemoglobin 6.9 GM/DL 8.3 GM/DL 9.3 GM/DL Hematocrit 20.2 % 24.4 % 27.4 % Mean Corpuscular Volume 74.7 FL 76.1 FL Mean Corpuscular Hemoglobin 25.5 PG 25.9 PG Mean Corpuscular Hemoglobin Concent 34.1 % 34.0 % Red Cell Distribution Width 22.5 % 21.9 % Platelet Count 83 TH/MM3 96 TH/MM3 Mean Platelet Volume 9.5 FL 8.7 FL Neutrophils (%) (Auto) 71.0 % 68.9 % Lymphocytes (%) (Auto) 20.6 % 23.5 % Monocytes (%) (Auto) 6.8 % 4.9 % Eosinophils (%) (Auto) 1.1 % 1.9 % Basophils (%) (Auto) 0.5 % 0.8 % Neutrophils # (Auto) 3.5 TH/MM3 4.2 TH/MM3 Lymphocytes # (Auto) 1.0 TH/MM3 1.4 TH/MM3 Monocytes # (Auto) 0.3 TH/MM3 0.3 TH/MM3 Eosinophils # (Auto) 0.1 TH/MM3 0.1 TH/MM3 Basophils # (Auto) 0.0 TH/MM3 0.0 TH/MM3 CBC Comment AUTO DIFF AUTO DIFF Differential Total Cells Counted 100 Neutrophils % (Manual) 72 % Band Neutrophils % 1 % Lymphocytes % 19 % Monocytes % 4 % Eosinophils % 2 % Basophils % 1 % Neutrophils # (Manual) 3.6 TH/MM3 Metamyelocytes 1 % Nucleated Red Blood Cells 2 /100 WBC Differential Comment FINAL DIFF MANUAL Platelet Estimate LOW Platelet Morphology Comment NORMAL Polychromasia 2.1 % Basophilic Stippling MOD Tear Drop Cells 1+ Ovalocytes 1+ Keratocytes OCC Blood Urea Nitrogen 7 MG/DL 8 MG/DL Creatinine 0.64 MG/DL 0.77 MG/DL Random Glucose 81 MG/DL 86 MG/DL Total Protein 6.7 GM/DL 7.4 GM/DL Albumin 2.9 GM/DL 3.2 GM/DL Calcium Level 8.8 MG/DL 9.2 MG/DL Alkaline Phosphatase 60 U/L 68 U/L Aspartate Amino Transf (AST/SGOT) 74 U/L 69 U/L Alanine Aminotransferase (ALT/SGPT) 20 U/L 20 U/L Total Bilirubin 2.5 MG/DL 2.9 MG/DL Sodium Level 139 MEQ/L 142 MEQ/L Potassium Level 4.2 MEQ/L 3.8 MEQ/L Chloride Level 108 MEQ/L 109 MEQ/L Carbon Dioxide Level 26.9 MEQ/L 23.8 MEQ/L Anion Gap 4 MEQ/L 9 MEQ/L Estimat Glomerular Filtration Rate 117 ML/MIN 94 ML/MIN Magnesium Level 2.0 MG/DL Culture Results Microbiology Date/Time Source Procedure Growth Status 07/25/17 13:15 Blood Peripheral Aerobic Blood Culture - Preliminary NO GROWTH IN 1 DAY Resulted 07/25/17 13:15 Blood Peripheral Anaerobic Blood Culture - Preliminary NO GROWTH IN 1 DAY Resulted 07/25/17 12:45 Blood Peripheral Aerobic Blood Culture - Preliminary NO GROWTH IN 1 DAY Resulted 07/25/17 12:45 Blood Peripheral Anaerobic Blood Culture - Preliminary NO GROWTH IN 1 DAY Resulted 07/26/17 03:15 Stool Stool Stool Occult Blood (NETTE) - Final HEMOCCULT NEGATIVE Complete 07/26/17 13:37 Urine Catheterized Urine Urine Culture Pending Received Imaging Studies Last 24 hours Impressions Chest X-Ray 07/27/17 0600 Signed Impressions: Service Date/Time: Thursday, July 27, 2017 03:39 - CONCLUSION: Interval development of central and bilateral lower lung air space opacities. Horacio Gallego MD Administered Medications Medications (Trade) Dose Ordered Sig/Natalie Route PRN Reason Start Time Stop Time Status Last Admin Dose Admin Sodium Chloride (NS Flush) 2 ml BID IV FLUSH 07/21/17 21:00 07/27/17 08:30 Folic Acid (Folate) 1 mg DAILY PO 07/22/17 09:00 07/27/17 08:30 Multivitamins (Theragran) 1 tab DAILY PO 07/22/17 09:00 07/27/17 08:29 Senna/Docusate Sodium (Chelsey-Colace) 1 tab BID PO 07/21/17 10:00 07/25/17 09:18 Methadone HCl (Dolophine) 10 mg TID PO 07/21/17 13:00 07/27/17 08:30 Fondaparinux (Arixtra Inj) 2.5 mg Q24H SQ 07/21/17 15:00 Future Hold 07/25/17 14:42 Magnesium Hydroxide (Milk Of Magnesia Liq) 30 ml Q12H PRN PO Mild constipation 07/25/17 05:45 07/25/17 20:22 Polyethylene Glycol (Miralax) 17 gm DAILY PO 07/25/17 09:00 07/25/17 09:18 Azithromycin 500 mg/Sodium Chloride 250 ml @ 250 mls/hr Q24H IV 07/25/17 11:00 07/26/17 10:56 Sodium Chloride 1,000 ml @ 84 mls/hr [id number] IV 07/25/17 15:05 07/27/17 02:13 Famotidine (Pepcid Inj) 20 mg Q12HR IV PUSH 07/25/17 21:00 07/27/17 08:29 Miscellaneous Information 1 Q361D XX 07/25/17 15:15 07/25/17 15:15 Chlorhexidine Gluconate (Chlorhexidine 2% Cloth) 3 pack Taper DAILY@04 TOP 07/26/17 04:00 07/22/18 03:59 07/27/17 03:59 Hydromorphone HCl (Dilaudid Pf Inj) 2 mg Q3HR PRN IV PUSH PAIN 6-10 07/25/17 16:45 07/27/17 08:30 Hydromorphone HCl (Dilaudid Pf Inj) 1 mg Q3HR PRN IV PUSH PAIN SCALE 1 TO 5 07/25/17 16:45 07/26/17 20:04 Cefepime HCl 2000 mg/Sodium Chloride 100 ml @ 200 mls/hr Q8H IV 07/26/17 18:00 07/27/17 08:29 Objective Remarks GENERAL: Middle aged female, sitting up in bed. she appears comfortable in nad. SKIN: Warm and dry. HEAD: Normocephalic. EYES: No injection or drainage. NECK: Supple, trachea midline. CARDIOVASCULAR: tachycardic rate, regular rhythm RESPIRATORY: crackles, right base, all other mckay clear to auscultation. breathing room air comfortably GASTROINTESTINAL: Abdomen soft, non-tender, nondistended. EXTREMITIES: No cyanosis NEUROLOGICAL: no obvious focal deficit. Assessment/Plan Problem List: (1) Sickle cell crisis ICD Codes: D57.00 - Hb-SS disease with crisis, unspecified Status: Acute Plan: 07/27: hgb stabilized. no transfusion today. monitor. --Hydrea on hold --No sign of acute chest syndrome --Monitor CBC (2) Sepsis ICD Codes: A41.9 - Sepsis, unspecified organism Plan: --BC no growth --on Zithromax (3) Thrombocytopenia ICD Codes: D69.6 - Thrombocytopenia, unspecified Assessment 56-year-old female admitted with sickle cell crisis Plan 1. monitor CBC. no further transfusion needed at this point. 2. continue IVF, supportive care 3. continue antibiotics 4. ok to transfer out of [facility] perspective. Attending Statement The exam, history, and the medical decision-making described in the above note were completed with the assistance of the mid-level provider. I reviewed and agree with the findings presented. I attest that I had a [id number] encounter with the patient on the same day, and personally performed and documented my assessment and findings in the medical record. 56 yoF with sickle cell disease admitted to the hospital with sickle cell pain crisis. She reports right sided flank/rib pain. CXR with infiltrates. She is currently being treated with antibiotic therapy, hypotonic fluids. She is s/p blood transfusion with hemoglobin at baseline (approximately 8-9). clinically she is improving, afebrile and with no hypoxia. Continue to monitor clinical picture and continue supportive care. Martha Conklin Jul 27, 2017 09:08 Manjula Acevedo MD Jul 27, 2017 14:15
[2017-07-27 09:09] LABS: KERATOCYTES OCC (NORMAL); POLYCHROMASIA 2.9 % (0.0-1.9); TARGET CELLS 1+ (NORMAL)
[2017-07-27 09:10] LABS: HOWELL-JOLLY BODIES PRESENT (NONE SEEN); OVALOCYTES 1+ (NORMAL); TEARDROP RBCS 1+ (NORMAL)
[2017-07-27] MEDS: AZITHROMYCIN INJ 500 MG in SODIUM CHLOR 0.9% 250 ML INJ 250 ML IV SCH (11:55)
[2017-07-27 12:31] LABS: INTERNATIONAL NORMALIZED RATIO 1.2 RATIO
[2017-07-27] MEDS: FAMOTIDINE 20 MG TAB PO SCH (21:31)
[2017-07-28] MEDS: CEFEPIME INJ 2,000 MG in SODIUM CHLORIDE 0.9% INJ 100 ML IV SCH ×3 (02:12→17:35)
[2017-07-28] MEDS: HYDROmorphone HCL PF 2 MG/ML VIAL IV PUSH PRN ×5 (02:13→21:26)
[2017-07-28] MEDS: CHLORHEXIDINE GLUCONATE 2 % 1 PACK (2 CLOTHS) TOP SCH (04:18)
[2017-07-28 08:00] VITALS: BP 145/75; PULSE 82; RESP 17; TEMP 99; O2SAT 98
[2017-07-28] MEDS: INSULIN ASPART SUPPLEMENTAL SCALE SQ SCH ×4 (08:00→19:55)
[2017-07-28] MEDS: SODIUM CHLOR 0.9% 1000 ML INJ 1,000 ML IV SCH ×2 (08:41→14:35)
[2017-07-28] MEDS: FAMOTIDINE 20 MG TAB PO SCH ×2 (08:41→19:55)
[2017-07-28] MEDS: METHADONE HCL 10 MG TAB PO SCH ×3 (08:41→17:35)
[2017-07-28] MEDS: FOLIC ACID 1 MG TAB PO SCH (08:41)
[2017-07-28] MEDS: SODIUM CHLORIDE 0.9% FLUSH 10 ML FLUSH IV FLUSH SCH ×2 (08:42→19:55)
[2017-07-28] MEDS: POLYETHYLENE GLYCOL 17 GM PKG PO SCH (08:42)
[2017-07-28] MEDS: DOCUSATE SODIUM 50 MG/SENNA 8.6 MG TAB PO SCH ×2 (08:43→19:55)
[2017-07-28] MEDS: MULTIVITAMIN TAB PO SCH (08:43)
--- NOTE | 2017-07-28 09:48 | PD.ONC.PN ---
Subjective Subjective Remarks Afebrile overnight. Patient resting in bed. still having the right sided chest pain but it is improved. she is glad to be back on a regular floor and out [place] [facility] [place] she wants to know when she can go home. Objective Data Date Time Temp Pulse Resp B/P (MAP) Pulse Ox O2 Delivery O2 Flow Rate FiO2 07/28/17 08:00 99.0 82 17 145/75 (98) 98 07/27/17 23:28 98.2 86 18 138/77 (97) 99 07/27/17 20:23 97 21 07/27/17 20:18 98.2 82 18 139/82 (101) 98 07/27/17 18:22 97.3 85 18 128/76 (93) 99 07/27/17 16:00 98.9 90 22 135/76 (95) 97 07/27/17 16:00 85 07/27/17 12:00 86 07/27/17 12:00 99.1 86 23 140/78 (98) 98 07/28/17 07/28/17 07/28/17 07:00 15:00 23:00 Intake Total 240 ml Output Total 300 ml Balance -60 ml Result Diagram: 07/27/17 0500 07/27/17 0500 Laboratory Results Laboratory Tests Test 07/27/17 12:00 Prothrombin Time 12.0 SEC Prothromb Time International Ratio 1.2 RATIO Culture Results Microbiology Date/Time Source Procedure Growth Status 07/25/17 13:15 Blood Peripheral Aerobic Blood Culture - Preliminary NO GROWTH IN 2 DAYS Resulted 07/25/17 13:15 Blood Peripheral Anaerobic Blood Culture - Preliminary NO GROWTH IN 2 DAYS Resulted 07/25/17 12:45 Blood Peripheral Aerobic Blood Culture - Preliminary NO GROWTH IN 2 DAYS Resulted 07/25/17 12:45 Blood Peripheral Anaerobic Blood Culture - Preliminary NO GROWTH IN 2 DAYS Resulted 07/26/17 03:15 Stool Stool Stool Occult Blood (NETTE) - Final HEMOCCULT NEGATIVE Complete 07/26/17 13:37 Urine Catheterized Urine Urine Culture - Preliminary Staph Sp Coagulase Negative Resulted Administered Medications Medications (Trade) Dose Ordered Sig/Natalie Route PRN Reason Start Time Stop Time Status Last Admin Dose Admin Sodium Chloride (NS Flush) 2 ml BID IV FLUSH 07/21/17 21:00 07/28/17 08:42 Folic Acid (Folate) 1 mg DAILY PO 4/23/18 09:00 07/28/17 08:41 Multivitamins (Theragran) 1 tab DAILY PO 07/22/17 09:00 07/27/17 08:29 Senna/Docusate Sodium (Chelsey-Colace) 1 tab BID PO 07/21/17 10:00 07/25/17 09:18 Methadone HCl (Dolophine) 10 mg TID PO 07/21/17 13:00 07/28/17 08:41 Fondaparinux (Arixtra Inj) 2.5 mg Q24H SQ 07/21/17 15:00 Future Hold 07/25/17 14:42 Magnesium Hydroxide (Milk Of Radha Alvarenga) 30 ml Q12H PRN PO Mild constipation 07/25/17 05:45 07/25/17 20:22 Polyethylene Glycol (Miralax) 17 gm DAILY PO 07/25/17 09:00 07/25/17 09:18 Azithromycin 500 mg/Sodium Chloride 250 ml @ 250 mls/hr Q24H IV 07/25/17 11:00 07/27/17 11:55 Sodium Chloride 1,000 ml @ 84 mls/hr [id number] IV 07/25/17 15:05 07/28/17 08:41 Miscellaneous Information 1 Q361D XX 07/25/17 15:15 07/25/17 15:15 Chlorhexidine Gluconate (Chlorhexidine 2% Cloth) 3 pack Taper DAILY@04 TOP 07/26/17 04:00 07/22/18 03:59 07/27/17 03:59 Hydromorphone HCl (Dilaudid Pf Inj) 2 mg Q3HR PRN IV PUSH PAIN 6-10 07/25/17 16:45 07/28/17 05:30 Hydromorphone HCl (Dilaudid Pf Inj) 1 mg Q3HR PRN IV PUSH PAIN SCALE 1 TO 5 07/25/17 16:45 07/26/17 20:04 Cefepime HCl 2000 mg/Sodium Chloride 100 ml @ 200 mls/hr Q8H IV 07/26/17 18:00 07/28/17 08:42 Famotidine (Pepcid) 20 mg BID PO 07/27/17 21:00 07/28/17 08:41 Objective Remarks GENERAL: Pleasant female, sitting up in bed in nad. SKIN: Warm and dry. HEAD: Normocephalic. EYES: No injection or drainage. NECK: Supple, trachea midline. CARDIOVASCULAR: Regular rate and rhythm RESPIRATORY: Breath sounds equal bilaterally. No accessory muscle use. GASTROINTESTINAL: Abdomen soft, non-tender, nondistended. EXTREMITIES: No cyanosis NEUROLOGICAL: No obvious focal deficit. Awake, alert, and oriented x3. Assessment/Plan Problem List: (1) Sickle cell crisis ICD Codes: D57.00 - Hb-SS disease with crisis, unspecified Status: Acute Plan: --No sign of acute chest syndrome --Monitor CBC (2) Pneumonia ICD Codes: J18.9 - Pneumonia, unspecified organism Plan: --on Cefepime + Zithromax Assessment 56-year-old female admitted with sickle cell crisis Plan 1. check repeat CXR today 2. monitor CBC, LDH, electrolytes 3. continue pain medication, IVF Attending Statement The exam, history, and the medical decision-making described in the above note were completed with the assistance of the mid-level provider. I reviewed and agree with the findings presented. I attest that I had a [id number] encounter with the patient on the same day, and personally performed and documented my assessment and findings in the medical record. 56 yoF with SCD admitted with pain crisis. Pain improved. CXR pending. Continue supportive care. Martha Conklin Jul 28, 2017 09:48 Manjula Acevedo MD Jul 28, 2017 14:59
--- NOTE | 2017-07-28 10:38 | RADRPT ---
EXAM DATE/TIME: 07/28/2017 10:28 [place] COMPARISON: CHEST SINGLE AP, July 27, 2017, 3:39. INDICATIONS : Right side chest pain, denies injury MEDICAL HISTORY : Sickle Cell disease. Thrombocytopenia. Chronic anemia.Hyperbilirubinemia SURGICAL HISTORY : Hysterectomy. [id number] ENCOUNTER: Subsequent ACUITY: 1 week PAIN SCORE: 3/10 LOCATION: chest FINDINGS: There is improved aeration of the right lung. Blunted right lateral costophrenic angle is noted consi stent with a small effusion. There may also be a tiny left effusion. There is atelectasis and minimal parenchymal infiltrate at the right base. Cardiomegaly is present. Right-sided portacatheter is pres ent. CONCLUSION: Small effusions with improved aeration from the previous study. Salvador Heath MD on July 28, 2017 at 10:35 Board Certified Radiologist. This report was verified electronically.
[2017-07-28] MEDS: AZITHROMYCIN INJ 500 MG in SODIUM CHLOR 0.9% 250 ML INJ 250 ML IV SCH (11:19)
[2017-07-28 11:54] LABS: HEMATOCRIT 25.2 % (35.0-46.0); HEMOGLOBIN 8.6 GM/DL (11.6-15.3); MEAN CELL VOLUME 74.1 FL (80.0-100.0); MEAN CORPUSCULAR HEMOGLOBIN 25.5 PG (27.0-34.0); MEAN CORPUSCULAR HGB CONC 34.4 % (32.0-36.0); MEAN PLATELET VOLUME 8.4 FL (7.0-11.0); PLATELET COUNT 95 TH/MM3 (150-450); RED CELL DISTRIBUTION WIDTH 22.5 % (11.6-17.2); WHITE BLOOD COUNT 4.4 TH/MM3 (4.0-11.0)
[2017-07-28 12:00] VITALS: BP 148/77; PULSE 85; RESP 17; TEMP 98.3; O2SAT 100
[2017-07-28 12:15] LABS: ALBUMIN 3.2 GM/DL (3.4-5.0); ALT (GPT) 21 U/L (10-53); AST (GOT) 66 U/L (15-37); BICARBONATE 27.8 MEQ/L (21.0-32.0); BLOOD UREA NITROGEN 8 MG/DL (7-18); CALCIUM 9.2 MG/DL (8.5-10.1); CHLORIDE 109 MEQ/L (98-107); GLOMERULAR FILTRATION RATE 126 ML/MIN (>89); GLUCOSE,RANDOM 76 MG/DL (74-106); SODIUM (NA) 141 MEQ/L (136-145)
[2017-07-28 12:17] LABS: ALKALINE PHOSPHATASE 70 U/L (45-117); TOTAL BILIRUBIN ADULT 2.8 MG/DL (0.2-1.0)
[2017-07-28 12:27] LABS: CORRECTED NUCLEATED RBC 3 /100 WBC (0-0); LYMPHOCYTES 24 % (9-44); MONOCYTES 6 % (0-8); NEUTROPHIL # MANUAL DIFF 3.1 TH/MM3 (1.8-7.7); NUCLEATED RED BLOOD CELL 3 (0-0); POLYS (SEG NEUTROPHILS) 70 % (16-70)
[2017-07-28 12:28] LABS: HOWELL-JOLLY BODIES PRESENT (NONE SEEN); KERATOCYTES OCC (NORMAL); POLYCHROMASIA 2.3 % (0.0-1.9); TARGET CELLS 1+ (NORMAL); TEARDROP RBCS 1+ (NORMAL)
[2017-07-28 12:29] LABS: SICKLE CELLS 1+ (NORMAL)
[2017-07-28 16:00] VITALS: BP 133/73; PULSE 82; RESP 18; TEMP 99; O2SAT 99
[2017-07-28 19:54] VITALS: BP 153/81; PULSE 80; RESP 17; TEMP 98.6
--- NOTE | 2017-07-28 22:24 | HHI.PR ---
Subjective Remarks Patient seen this afternoon around 1:30 PM. Says she is feeling all right. Reports chest discomfort has improved. Denies any nausea or vomiting. Objective Vital Signs Date Time Temp Pulse Resp B/P (MAP) Pulse Ox O2 Delivery O2 Flow Rate FiO2 07/28/17 19:54 98.6 80 17 153/81 (105) 07/28/17 16:00 99.0 82 18 133/73 (93) 99 07/28/17 12:00 98.3 85 17 148/77 (100) 100 07/28/17 08:40 Room Air 07/28/17 08:00 99.0 82 17 145/75 (98) 98 07/27/17 23:28 98.2 86 18 138/77 (97) 99 I/O 07/27/17 07/27/17 07/27/17 07/28/17 07/28/17 07/28/17 07:00 15:00 23:00 07:00 15:00 23:00 Intake Total 1580 ml 240 ml 250 ml Output Total 300 ml Balance 1580 ml -60 ml 250 ml Intake Oral 480 ml 240 ml IV Total 1100 ml 250 ml Output Urine Total 300 ml # Voids 4 4 # Bowel Movements 2 1 Result Diagram: 07/28/17 1125 07/28/17 1125 Objective Remarks GENERAL: patient lying in bed. Appears comfortable. SKIN: Warm and dry. HEAD: Normocephalic. EYES: No scleral icterus. No injection or drainage. NECK: Supple, trachea midline. No JVD. CARDIOVASCULAR: Regular rate and rhythm without murmurs, gallops, or rubs. RESPIRATORY: Breath sounds equal bilaterally. No accessory muscle use. GASTROINTESTINAL: Abdomen soft, non-tender, nondistended. MUSCULOSKELETAL: No cyanosis, or edema. BACK: Nontender without obvious deformity. No CVA tenderness. A/P Assessment and Plan //Resp Insuff -Chest x-rays with small effusions. Continue antibiotics as ordered. = Much improved continue nebulizations as needed. //Sickle cell crisis //Anemia Hematology following. Hemoglobin 8.6 from 9.3 yesterday. Continue to monitor. //Chronic pain secondary to sickle cell disease = Narcotics as necessary. //Thrombocytopenia = No signs of acute bleeding. Platelets 95. Continue to monitor. //UTI = Coag-negative staph on urine culture Discharge Planning pending hematology clearance. Cade Conteh MD Jul 28, 2017 22:24
[2017-07-28 23:53] VITALS: BP 133/73; PULSE 78; RESP 16; TEMP 98.5; O2SAT 97
[2017-07-29] MEDS: HYDROmorphone HCL PF 2 MG/ML VIAL IV PUSH PRN ×5 (00:26→14:27)
[2017-07-29] MEDS: CEFEPIME INJ 2,000 MG in SODIUM CHLORIDE 0.9% INJ 100 ML IV SCH ×2 (02:15→08:15)
[2017-07-29] MEDS: SODIUM CHLOR 0.9% 1000 ML INJ 1,000 ML IV SCH (02:30)
[2017-07-29] MEDS: CHLORHEXIDINE GLUCONATE 2 % 1 PACK (2 CLOTHS) TOP SCH (04:00)
[2017-07-29 06:05] LABS: AUTOMATED NEUTROPHIL # 2.5 TH/MM3 (1.8-7.7); BASOPHIL % 0.6 % (0.0-2.0); EOSINOPHIL # 0.1 TH/MM3 (0-0.4); EOSINOPHIL % 2.1 % (0.0-4.0); HEMATOCRIT 27.8 % (35.0-46.0); HEMOGLOBIN 9.4 GM/DL (11.6-15.3); LYMPH % 31.1 % (9.0-44.0); LYMPHOCYTE # 1.3 TH/MM3 (1.0-4.8); MEAN CELL VOLUME 75.6 FL (80.0-100.0); MEAN CORPUSCULAR HEMOGLOBIN 25.5 PG (27.0-34.0); MEAN CORPUSCULAR HGB CONC 33.7 % (32.0-36.0); MEAN PLATELET VOLUME 10.6 FL (7.0-11.0); MONO % 5.4 % (0.0-8.0); MONOCYTE # 0.2 TH/MM3 (0-0.9); NEUT % 60.8 % (16.0-70.0); PLATELET COUNT 181 TH/MM3 (150-450); RED BLOOD COUNT 3.67 MIL/MM3 (4.00-5.30); RED CELL DISTRIBUTION WIDTH 24.2 % (11.6-17.2); WHITE BLOOD COUNT 4.1 TH/MM3 (4.0-11.0)
[2017-07-29 06:14] LABS: ALBUMIN 3.2 GM/DL (3.4-5.0); BICARBONATE 24.6 MEQ/L (21.0-32.0); CALCIUM 9.1 MG/DL (8.5-10.1); CREATININE 0.63 MG/DL (0.50-1.00); MAGNESIUM 1.9 MG/DL (1.5-2.5); PHOSPHORUS 3.3 MG/DL (2.5-4.9)
[2017-07-29 07:28] LABS: BANDS 1 % (0-6); CORRECTED NUCLEATED RBC 7 /100 WBC (0-0); LYMPHOCYTES 26 % (9-44); MONOCYTES 6 % (0-8); NEUTROPHIL # MANUAL DIFF 2.7 TH/MM3 (1.8-7.7); NUCLEATED RED BLOOD CELL 7 (0-0); OVALOCYTES 2+ (NORMAL); POLYS (SEG NEUTROPHILS) 66 % (16-70)
[2017-07-29 07:29] LABS: KERATOCYTES OCC (NORMAL); TEARDROP RBCS 1+ (NORMAL)
[2017-07-29 07:30] LABS: POLYCHROMASIA 2.1 % (0.0-1.9)
[2017-07-29 08:00] VITALS: BP 144/77; PULSE 78; RESP 18; TEMP 99; O2SAT 100
[2017-07-29] MEDS: INSULIN ASPART SUPPLEMENTAL SCALE SQ SCH ×2 (08:00→11:09)
[2017-07-29] MEDS: DOCUSATE SODIUM 50 MG/SENNA 8.6 MG TAB PO SCH (08:02)
[2017-07-29] MEDS: HYDROmorphone HCL PF 0.5 MG/0.5 ML SYRINGE IV PUSH PRN (08:02)
[2017-07-29] MEDS: FAMOTIDINE 20 MG TAB PO SCH (08:02)
[2017-07-29] MEDS: FOLIC ACID 1 MG TAB PO SCH (08:03)
[2017-07-29] MEDS: METHADONE HCL 10 MG TAB PO SCH ×2 (08:03→13:00)
[2017-07-29] MEDS: AZITHROMYCIN INJ 500 MG in SODIUM CHLOR 0.9% 250 ML INJ 250 ML IV SCH (08:16)
[2017-07-29] MEDS: POLYETHYLENE GLYCOL 17 GM PKG PO SCH (09:00)
[2017-07-29] MEDS: MULTIVITAMIN TAB PO SCH (09:00)
[2017-07-29] MEDS: SODIUM CHLORIDE 0.9% FLUSH 10 ML FLUSH IV FLUSH SCH (09:00)
[2017-07-29 09:16] VITALS: O2SAT 97
[2017-07-29 11:59] LABS: BICARBONATE 25.9 MEQ/L (21.0-32.0); CREATININE 0.68 MG/DL (0.50-1.00)
[2017-07-29 12:00] VITALS: BP 139/82; PULSE 85; RESP 18; TEMP 99.2; O2SAT 100
--- NOTE | 2017-07-29 12:20 | PD.ONC.PN ---
Subjective Subjective Remarks Afebrile overnight. Patient continuing to have right sided chest pain, but states it is improved. she wants to go home. Objective Data Date Time Temp Pulse Resp B/P (MAP) Pulse Ox O2 Delivery O2 Flow Rate FiO2 07/29/17 09:16 97 21 07/29/17 08:00 99.0 78 18 144/77 (99) 100 07/28/17 23:53 98.5 78 16 133/73 (93) 97 07/28/17 19:54 98.6 80 17 153/81 (105) 07/28/17 16:00 99.0 82 18 133/73 (93) 99 Result Diagram: 07/29/17 0532 07/29/17 1123 Laboratory Results Laboratory Tests Test 07/29/17 05:32 07/29/17 11:23 White Blood Count 4.1 TH/MM3 Red Blood Count 3.67 MIL/MM3 Hemoglobin 9.4 GM/DL Hematocrit 27.8 % Mean Corpuscular Volume 75.6 FL Mean Corpuscular Hemoglobin 25.5 PG Mean Corpuscular Hemoglobin Concent 33.7 % Red Cell Distribution Width 24.2 % Platelet Count 181 TH/MM3 Mean Platelet Volume 10.6 FL Neutrophils (%) (Auto) 60.8 % Lymphocytes (%) (Auto) 31.1 % Monocytes (%) (Auto) 5.4 % Eosinophils (%) (Auto) 2.1 % Basophils (%) (Auto) 0.6 % Neutrophils # (Auto) 2.5 TH/MM3 Lymphocytes # (Auto) 1.3 TH/MM3 Monocytes # (Auto) 0.2 TH/MM3 Eosinophils # (Auto) 0.1 TH/MM3 Basophils # (Auto) 0.0 TH/MM3 CBC Comment AUTO DIFF Differential Total Cells Counted 100 Neutrophils % (Manual) 66 % Band Neutrophils % 1 % Lymphocytes % 26 % Monocytes % 6 % Eosinophils % 1 % Neutrophils # (Manual) 2.7 TH/MM3 Nucleated Red Blood Cells 7 /100 WBC Differential Comment FINAL DIFF MANUAL Platelet Estimate NORMAL Platelet Morphology Comment NORMAL Polychromasia 2.1 % Tear Drop Cells 1+ Ovalocytes 2+ Keratocytes OCC Blood Urea Nitrogen 10 MG/DL 10 MG/DL Creatinine 0.63 MG/DL 0.68 MG/DL Random Glucose 84 MG/DL 73 MG/DL Albumin 3.2 GM/DL Calcium Level 9.1 MG/DL 9.0 MG/DL Phosphorus Level 3.3 MG/DL Magnesium Level 1.9 MG/DL Sodium Level 139 MEQ/L 141 MEQ/L Potassium Level 6.2 MEQ/L 4.3 MEQ/L Chloride Level 109 MEQ/L 110 MEQ/L Carbon Dioxide Level 24.6 MEQ/L 25.9 MEQ/L Anion Gap 5 MEQ/L 5 MEQ/L Estimat Glomerular Filtration Rate 119 ML/MIN 109 ML/MIN Culture Results Microbiology Date/Time Source Procedure Growth Status 07/26/17 13:37 Urine Catheterized Urine Urine Culture - Preliminary Staph Sp Coagulase Negative Resulted Administered Medications Medications (Trade) Dose Ordered Sig/Natalie Route PRN Reason Start Time Stop Time Status Last Admin Dose Admin Sodium Chloride (NS Flush) 2 ml UNSCH PRN IV FLUSH FLUSH AFTER USING IV ACCESS 07/21/17 09:15 07/28/17 11:20 Sodium Chloride (NS Flush) 2 ml BID IV FLUSH 07/21/17 21:00 07/28/17 19:55 Folic Acid (Folate) 1 mg DAILY PO 07/22/17 09:00 07/29/17 08:03 Multivitamins (Theragran) 1 tab DAILY PO 07/22/17 09:00 07/27/17 08:29 Senna/Docusate Sodium (Chelsey-Colace) 1 tab BID PO 07/21/17 10:00 07/29/17 08:02 Methadone HCl (Dolophine) 10 mg TID PO 07/21/17 13:00 07/29/17 08:03 Fondaparinux (Arixtra Inj) 2.5 mg Q24H SQ 07/21/17 15:00 Future Hold 07/25/17 14:42 Magnesium Hydroxide (Milk Of Magnesia Liq) 30 ml Q12H PRN PO Mild constipation 07/25/17 05:45 07/25/17 20:22 Polyethylene Glycol (Miralax) 17 gm DAILY PO 07/25/17 09:00 07/25/17 09:18 Azithromycin 500 mg/Sodium Chloride 250 ml @ 250 mls/hr Q24H IV 07/25/17 11:00 07/29/17 08:16 Sodium Chloride 1,000 ml @ 84 mls/hr [id number] IV 07/25/17 15:05 07/28/17 08:41 Miscellaneous Information 1 [id number] XX 07/25/17 15:15 07/25/17 15:15 Chlorhexidine Gluconate (Chlorhexidine 2% Cloth) 3 pack Taper DAILY@04 TOP 07/26/17 04:00 07/22/18 03:59 07/27/17 03:59 Hydromorphone HCl (Dilaudid Pf Inj) 2 mg Q3HR PRN IV PUSH PAIN 6-10 07/25/17 16:45 07/29/17 03:54 Hydromorphone HCl (Dilaudid Pf Inj) 1 mg Q3HR PRN IV PUSH PAIN SCALE 1 TO 5 07/25/17 16:45 07/29/17 08:02 Cefepime HCl 2000 mg/Sodium Chloride 100 ml @ 200 mls/hr Q8H IV 07/26/17 18:00 07/29/17 08:15 Famotidine (Pepcid) 20 mg BID PO 07/27/17 21:00 07/29/17 08:02 Objective Remarks GENERAL: Pleasant female, upright in bed in nad. SKIN: Warm and dry. HEAD: Normocephalic. EYES: No injection or drainage. NECK: Supple, trachea midline. CARDIOVASCULAR: Regular rate and rhythm RESPIRATORY: faint crackles at right base, otherwise clear GASTROINTESTINAL: Abdomen soft, non-tender, nondistended. EXTREMITIES: No cyanosis NEUROLOGICAL: awake and alert. normal speech. moving extremities. Assessment/Plan Problem List: (1) Sickle cell crisis ICD Codes: D57.00 - Hb-SS disease with crisis, unspecified Status: Acute Plan: --No sign of acute chest syndrome --Monitor CBC (2) Pneumonia ICD Codes: J18.9 - Pneumonia, unspecified organism Plan: --on Cefepime + Zithromax Assessment 56-year-old female admitted with sickle cell crisis Plan 1. hematology clear for discharge on PO antibiotics 2. follow up in clinic in 1-2 weeks. Martha Conklin Jul 29, 2017 12:20
[2017-07-29 13:54] VITALS: RESP 18
[2017-07-29] MEDS ORDERED: LEVO500T8 PO (13:56)
[2017-07-29] MEDS ORDERED: FOLI400T PO (13:57)
--- NOTE | 2017-07-29 14:01 | HHI.PR ---
Subjective Remarks Patient seen today round 9am. says she would like to go home. no SOB. Objective Vital Signs Date Time Temp Pulse Resp B/P (MAP) Pulse Ox O2 Delivery O2 Flow Rate FiO2 07/29/17 09:16 97 21 07/29/17 08:00 99.0 78 18 144/77 (99) 100 07/28/17 23:53 98.5 78 16 133/73 (93) 97 07/28/17 19:54 98.6 80 17 153/81 (105) 07/28/17 16:00 99.0 82 18 133/73 (93) 99 I/O 07/28/17 07/28/17 07/28/17 07/29/17 07/29/17 07/29/17 07:00 15:00 23:00 07:00 15:00 23:00 Intake Total 240 ml 250 ml Output Total 300 ml Balance -60 ml 250 ml Intake Oral 240 ml IV Total 250 ml Output Urine Total 300 ml # Voids 4 # Bowel Movements 1 Result Diagram: 07/29/17 0532 07/29/17 1123 Objective Remarks GENERAL: patient lying in bed. Appears comfortable.AAOx3 SKIN: Warm and dry. HEAD: Normocephalic. EYES: No scleral icterus. No injection or drainage. NECK: Supple, trachea midline. No JVD. CARDIOVASCULAR: Regular rate and rhythm without murmurs, gallops, or rubs. RESPIRATORY: Breath sounds equal bilaterally. No accessory muscle use. GASTROINTESTINAL: Abdomen soft, non-tender, nondistended. MUSCULOSKELETAL: No cyanosis, or edema. BACK: Nontender without obvious deformity. No CVA tenderness. A/P Assessment and Plan //Resp Insuff -Chest x-rays with small effusions. Continue antibiotics as ordered. = con levaquin to complete tx course. =f/u hematology OP //Sickle cell crisis //Anemia Hematology following. Hemoglobin stable. Continue to monitor. =f/u hematology OP //Chronic pain secondary to sickle cell disease = Narcotics as necessary. //Thrombocytopenia = No signs of acute bleeding. Platelets 181. Continue to monitor. //asymptomatic bacteriuria. = Coag-negative staph on urine culture ==small CFU count - contaminant Discharge Planning dc home per hematology Cade Conteh MD Jul 29, 2017 14:01
[2017-07-29] MEDS ORDERED: LEVA750T9 PO (14:02)
--- NOTE | 2017-07-29 14:03 | HHI.DS ---
Discharge Summary Admission Date Jul 21, 2017 at 09:18 Discharge Date: Jul 29, 2017 Admitting Diagnosis Chest pain r/o ACS, sickle cell crisis, intractable pain (1) Sickle cell crisis ICD Code: D57.00 - Hb-SS disease with crisis, unspecified Diagnosis: Principal Status: Acute (2) Chest pain ICD Code: R07.9 - Chest pain, unspecified Diagnosis: Principal Status: Acute Procedures none Brief History - From Admission 56 YOAAF with sickle cell thalassemia presenting with acute onset 10 out of 10 pain in the back of her arms and in the center of her chest. She describes the pain as dull and throbbing but states it can also be sharp at times. The quality of her pain is very similar to prior episodes. She denies associated lightheadedness, dizziness, palpitations, or diaphoresis. Pain does not radiate into her jaw. She follows with Dr. Chin monthly. She was admitted for pain crisis on 07/[address] Chin's office. She was treated with IV fluids, pain control, and 1 unit packed RBCs. She states she typically takes hydroxyurea but has been out of it for the past week. She denies fever, chills, cough, or recently illness. She denies urinary symptoms. CBC/BMP: 07/29/17 0532 07/29/17 1123 Significant Findings Laboratory Tests Test 07/26/17 20:00 07/27/17 05:00 07/27/17 12:00 07/28/17 11:25 Hemoglobin 8.3 GM/DL (11.6-15.3) 9.3 GM/DL (11.6-15.3) 8.6 GM/DL (11.6-15.3) Hematocrit 24.4 % (35.0-46.0) 27.4 % (35.0-46.0) 25.2 % (35.0-46.0) Red Blood Count 3.60 MIL/MM3 (4.00-5.30) 3.40 MIL/MM3 (4.00-5.30) Mean Corpuscular Volume 76.1 FL (80.0-100.0) 74.1 FL (80.0-100.0) Mean Corpuscular Hemoglobin 25.9 PG (27.0-34.0) 25.5 PG (27.0-34.0) Red Cell Distribution Width 21.9 % (11.6-17.2) 22.5 % (11.6-17.2) Platelet Count 96 TH/MM3 (150-450) 95 TH/MM3 (150-450) Neutrophils % (Manual) 85 % (16-70) Nucleated Red Blood Cells 7 /100 WBC (0-0) 3 /100 WBC (0-0) Platelet Estimate LOW (NORMAL) LOW (NORMAL) Platelet Morphology Comment ENLARGED (NORMAL) Polychromasia 2.9 % (0.0-1.9) 2.3 % (0.0-1.9) Target Cells 1+ (NORMAL) 1+ (NORMAL) Tear Drop Cells 1+ (NORMAL) 1+ (NORMAL) Ovalocytes 1+ (NORMAL) Keratocytes OCC (NORMAL) OCC (NORMAL) Albumin 3.2 GM/DL (3.4-5.0) 3.2 GM/DL (3.4-5.0) Aspartate Amino Transf (AST/SGOT) 69 U/L (15-37) 66 U/L (15-37) Total Bilirubin 2.9 MG/DL (0.2-1.0) 2.8 MG/DL (0.2-1.0) Chloride Level 109 MEQ/L (98-107) 109 MEQ/L (98-107) Lactate Dehydrogenase 740 U/L (84-246) 668 U/L (84-246) Prothrombin Time 12.0 SEC (9.8-11.6) Sickle Cells 1+ (NORMAL) Anion Gap 4 MEQ/L (5-15) Test 07/29/17 05:32 07/29/17 11:23 Red Blood Count 3.67 MIL/MM3 (4.00-5.30) Hemoglobin 9.4 GM/DL (11.6-15.3) Hematocrit 27.8 % (35.0-46.0) Mean Corpuscular Volume 75.6 FL (80.0-100.0) Mean Corpuscular Hemoglobin 25.5 PG (27.0-34.0) Red Cell Distribution Width 24.2 % (11.6-17.2) Nucleated Red Blood Cells 7 /100 WBC (0-0) Polychromasia 2.1 % (0.0-1.9) Tear Drop Cells 1+ (NORMAL) Ovalocytes 2+ (NORMAL) Keratocytes OCC (NORMAL) Albumin 3.2 GM/DL (3.4-5.0) Potassium Level 6.2 MEQ/L (3.5-5.1) Chloride Level 109 MEQ/L (98-107) 110 MEQ/L (98-107) Random Glucose 73 MG/DL (74-106) Imaging Last Impressions Chest X-Ray 07/28/17 0000 Signed Impressions: Service Date/Time: Friday, July 28, 2017 10:28 - CONCLUSION: Small effusions with improved aeration from the previous study. Salvador Heath MD PE at Discharge GENERAL: WN, WD female resting in bed in NAD. SKIN: Warm and dry. HEENT: AT/NC. Pupils equal and round. Sclera mildly icteric. MMM. NECK: Supple no tender LAD or JVD. CHEST: Chest wall TTP. HEART: Tachycardic with 2/6 EVELIO. LUNGS: CTAB without wheezes. Right basal crackles. ABDOMEN: +BS, soft, NT, ND. EXTREMITIES: No LE edema. 2+ pedal pulses. NEURO: Awake and alert. Nonfocal. PSYCH: Appropriate mood and affect. Hospital Course //Resp Insuff -Chest x-rays with small effusions. Continue antibiotics as ordered. = con levaquin to complete tx course. =f/u hematology OP //Sickle cell crisis //Anemia Hematology following. Hemoglobin stable. Continue to monitor. =f/u hematology OP //Chronic pain secondary to sickle cell disease = Narcotics as necessary. //Thrombocytopenia = No signs of acute bleeding. Platelets 181. Continue to monitor. //asymptomatic bacteriuria. = Coag-negative staph on urine culture ==small CFU count - contaminant Discharge Planning dc home per hematology Pt Condition on Discharge: Stable Discharge Disposition: Discharge Home Discharge Time: > 30 minutes Discharge Instructions DIET: Follow Instructions for: As Tolerated, No Restrictions Activities you can perform: Regular-No Restrictions Activities to Avoid: Driving Follow up Referrals: Appointment for Follow Up @ [facility] Oncology/Hematology - 1 Week PCP Follow-up - 1 Week PCP Follow-up @ [facility] New Medications: Folic Acid (Folic Acid) 0.4 Mg Tab 400 MCG PO DAILY for Nutritional Supplement for 30 Days, #30 TAB 0 Refills Levofloxacin (Levaquin) 750 Mg Tablet 750 MG PO DAILY for Infection for 3 Days, #3 TAB 0 Refills Folic Acid (Folic Acid) 1 Mg Tablet 1 MG PO DAILY for Sickle cell, #30 TAB Continued Medications: Hydromorphone (Dilaudid) 2 Mg Tab 4 MG PO Q6H PRN for PAIN SCALE 6 TO 10, TAB 0 Refills Methadone (Methadone) 10 Mg Tab 10 MG PO TID, TAB 0 Refills Cade Conteh MD Jul 29, 2017 14:03
== END 2017-07-29 17:28 | disposition home or self-care (01) | DRG 811 ==
LOC: NEPE 05:11 → NEDA 09:18 → N04A 13:00 → HIMW 07-25 12:49 → N06A 07-27 17:24
PROVIDERS: ADMIT Internal Medicine; ATTEND Internal Medicine
PROC: 30233N1 Transfusion of Nonautologous Red Blood Cells into Peripheral Vein, Percutaneous Approach (ICD-10-PCS; principal; 2017-07-26)
DX: D57.419 Sickle-cell thalassemia, unspecified, with crisis (principal); A41.9 Sepsis, unspecified organism; J18.9 Pneumonia, unspecified organism; D69.6 Thrombocytopenia, unspecified; N39.0 Urinary tract infection, site not specified; R07.89 Other chest pain; E78.00 Pure hypercholesterolemia, unspecified; E80.6 Other disorders of bilirubin metabolism; R00.0 Tachycardia, unspecified; G89.29 Other chronic pain; B95.8 Unspecified staphylococcus as the cause of diseases classified elsewhere; Y95 Nosocomial condition; M19.90 Unspecified osteoarthritis, unspecified site; Z87.01 Personal history of pneumonia (recurrent); Z23 Encounter for immunization
CPT/HCPCS: 36430; 71045; 71046; 80048; 80053; 80069; 80076; 81001; 82272; 82550; 82948; 83615; 83735; 84484; 85007; 85014; 85018; 85027; 85044; 85610; 86850; 86900; 86901; 86902; 86920; 86921; 86922; 87040; 87077; 87086; 87186; 87449; 87641; 93005; 96365; 96366; 96375; 96376; J0456; J0692; J0696; J0780; J1170; J1200; J1652; J7030; J7050; P9016

== ENCOUNTER 2017-10-04 12:49 | Inpatient (IN) ==
[2017-10-04] MEDS ORDERED: Cathflo Activase Inj 2 MG Vial I-CATHETER PRN (18:58)
[2017-10-04] MEDS ORDERED: LORazepam 0.5 MG Tablet PO PRN (18:58)
[2017-10-04] MEDS ORDERED: Acetaminophen 325 MG Tablet PO PRN (18:58)
[2017-10-04] MEDS: HYDROmorphone PF Inj 2 MG/ML Vial IV.PUSH SCH ×2 (19:28→22:55)
[2017-10-04] MEDS: Sod Chloride 0.9% Inj 1,000 ML IV.CONT SCH (19:29)
--- NOTE | 2017-10-04 19:29 | P.HP ---
History of Present Illness Service: Hematology and Oncology Primary Care Physician: ECTOR FREDERICK Chief Complaint: Sickle cell pain. History of Present Illness: Ms. Vergara is a 57-year-old woman with hemoglobin SC disease/thalassemia minor. She has frequent vasoocclusive pain crises. She has chronic pain. She is on long -acting methadone, and breakthrough hydromorphone p.r.n. She comes in today without acute symptoms of vasoocclusive pain crisis. She apparently got caught in the rain, got wet and has suffered from her crisis ever since. She was unable to sleep last night. She denies any fevers, chills or night sweats. She has sever unrelenting pain in the arms and legs that prompted her to come in to clinic for an unscheduled visit where she was subsequently admitted. - Diagnosis (1) Sickle cell anemia with crisis Inpatient Certification: I certify that the inpatient services were ordered in accordance with Medicare regulations governing the order. This includes certification that hospital inpatient services are reasonable and necessary and in the case of services not specified as inpatient-only under 42 CFR 419.22(n), that they are appropriately provided as inpatient services in accordance to with the 2-midnight benchmark under 43 CFR 412.3(e) Estimated Total Length of Stay (Days): 3 Plans for Post Hospital Care: Home Review of Systems All other systems reviewed negative except as stated in HPI Constitutional: Denies anorexia, Denies body ache(s), Denies chills, Denies daytime sleepiness, Denies excessive sweating, Denies fatigue, Denies fever(s), Denies headache(s), Denies increased appetite, Denies lack of energy, Denies malaise, Denies night sweats, Denies weakness, Denies weight gain, Denies weight loss, Denies other Eyes: Denies blind spots, Denies blurry vision, Denies bulging eyes, Denies change in vision, Denies double vision, Denies discharge, Denies dry eyes, Denies floaters, Denies irritation, Denies itchy eyes, Denies loss of vision, Denies pain, Denies requires corrective lenses, Denies sensitivity to light, Denies other Ears, Nose, Mouth, and Throat: Denies abnormal hearing, Denies bleeding gums, Denies bad breath, Denies change in voice, Denies dental pain, Denies difficulty swallowing, Denies dizziness, Denies dry mouth, Denies ear discharge , Denies ear pain, Denies facial pain, Denies headache(s), Denies hearing loss, Denies hoarseness, Denies lip swelling, Denies nosebleed, Denies mouth lesions, Denies mouth pain, Denies nasal congestion, Denies nasal discharge, Denies nasal obstruction, Denies nasal trauma, Denies neck lump, Denies neck pain, Denies nose pain, Denies pain with swallowing, Denies poor balance, Denies post nasal drip, Denies ringing in the ears, Denies sinus pain, Denies sinus pressure , Denies sore throat, Denies throat swelling, Denies tongue swelling, Denies other Cardiovascular: Denies chest pain, Denies chest pain at rest, Denies chest pain with activity, Denies excessive sweating, Denies fainting, Denies fast heart rate, Denies foot swelling, Denies generalized swelling, Denies irregular heart rhythm, Denies leg pain with activity, Denies leg sores, Denies leg swelling, Denies lightheadedness, Denies radiating jaw, neck or arm pain, Denies rapid, pounding, or irregular heartbeat, Denies shortness of breath, Denies shortness of breath with activity, Denies shortness of breath when lying down, Denies shortness of breath causing sudden awakening, Denies slow heart rate, Denies other Respiratory: Denies change in phlegm color, Denies chest congestion, Denies cough, Denies coughing up blood, Denies excessive phlegm production, Denies pain on inspiration, Denies pain with cough, Denies shortness of breath, Denies shortness of breath with activity, Denies snoring, Denies stridor, Denies wheezing, Denies other Gastrointestinal: Denies abdominal pain, Denies belching, Denies black, tarry stools, Denies bloating, Denies bright, red blood in stools, Denies change in bowel habits, Denies constant urge to pass stool, Denies change in stools, Denies coffee ground vomit, Denies constipation, Denies cramping, Denies difficulty swallowing, Denies excessive passing of gas, Denies feeling full early, Denies heartburn, Denies incontinent of stools, Denies loose stools, Denies nausea, Denies pain with swallowing, Denies vomiting, Denies vomiting blood, Denies other Genitourinary: Denies abnormal periods, Denies abnormal vaginal bleeding, Denies absent period, Denies bleeding between periods, Denies blood in urine, Denies difficulty starting urination, Denies difficulty urinating, Denies dribbling after urination, Denies frequent nighttime urination, Denies genital itching, Denies genital lesions, Denies heavy periods, Denies hot flashes, Denies light periods, Denies nipple discharge, Denies painful intercourse, Denies painful periods, Denies painful urination, Denies pelvic pain, Denies prolapse symptoms, Denies sexual problems, Denies side pain, Denies urinary incontinence, Denies urinary urgency, Denies vaginal discharge, Denies vaginal dryness, Denies vaginal odor, Denies vaginal itching, Denies other Musculoskeletal: Denies abnormal walking, Denies back pain, Denies body aches, Denies decreased muscle mass, Denies deformity, Denies joint pain, Denies joint swelling, Denies limited joint movement, Denies loss of height, Denies muscle cramps, Denies muscle weakness, Denies neck pain, Denies numbness, Denies radiating pain into limb, Denies stiffness, Denies tingling, Denies other Skin/Breast: Denies acne, Denies bleeding lesions, Denies boil, Denies breast swelling, Denies breast skin changes, Denies breast pain, Denies breast lump, Denies change in breast shape, Denies change in hair, Denies change in skin color, Denies changing lesions, Denies dry skin, Denies excessive hair growth, Denies hair loss, Denies itching, Denies lesions, Denies nail changes, Denies new lesions, Denies nipple discharge, Denies non-healing lesions, Denies redness , Denies sensitivity to light, Denies rash, Denies skin pain, Denies skin ulcer , Denies sores, Denies stretch mcbride, Denies unusual bruising, Denies wounds, Denies yellowing of the skin, Denies other Neurologic: Denies abnormal hearing, Denies abnormal movements, Denies abnormal speech, Denies abnormal walking, Denies behavioral changes, Denies burning sensations, Denies confusion, Denies dizziness, Denies fainting, Denies frequent falls, Denies headache(s), Denies lack of coordination, Denies localized weakness, Denies loss of vision, Denies memory loss, Denies numbness, Denies other visual disturbances, Denies radiating pain, Denies restless legs, Denies convulsions, Denies seizure-like activity, Denies sensory deficit, Denies tingling, Denies tingling/numbness/burning sensations, Denies tremor(s), Denies unsteadiness, Denies weakness, Denies other Psychiatric: Denies abnormal sleep pattern, Denies anxiety, Denies behavioral changes, Denies change in appetite, Denies change in sex drive, Denies confusion , Denies depression, Denies difficulty concentrating, Denies hearing things others do not hear, Denies hopelessness, Denies irritability, Denies lack of enjoyment, Denies memory loss, Denies mood swings, Denies panic attacks, Denies paranoia, Denies seeing things others do not see, Denies sensing things others do not sense, Denies tactile hallucinations, Denies thoughts of hurting/killing others, Denies thoughts of hurting/killing yourself, Denies other Endocrine: Denies cold intolerance, Denies excessive sweating, Denies flushing, Denies heat intolerance, Denies increased hunger, Denies increased thirst, Denies increased urination, Denies rapid, pounding, or irregular heartbeat, Denies other Hematologic/Lymphatic: Denies easy bleeding, Denies easy bruising, Denies enlarged lymph nodes, Denies other Allergic/Immunologic: Denies GI upset with certain foods, Denies hives, Denies itchy eyes, Denies lip swelling, Denies seasonal runny nose, Denies throat swelling, Denies tongue swelling, Denies wheezing, Denies other PMFSH - History History Provided By: Patient - Medical / Surgical Hx Neg / Unobtainable Medical Problems Denied: Yes - Medical History Medical History: Medical History (Last Updated 10/07/17 @ 17:43 by Pema Chin MD) Port-A-Cath in place (Acute) Anemia Blood dyscrasia Chronic pain Hemophilia History of blood product transfusion History of hysterectomy Hx of blood transfusion reaction Joint pain Neck pain Splenomegaly - Family History Family History: Family History (Last Updated 10/07/17 @ 17:43 by Pema Chin MD) Other Family history of sickle cell trait in father - Tobacco History Second Hand Smoke Exposure: No Tobacco Use In Past 30 Days: No Smoking Status: Never smoker - Alcohol History How Often Do You Have a Drink Containing Alcohol: Never - Substance Use History Substance History: No History of Abuse - Travel History History of Recent Travel: No Recent Travel in the [place] Within the Last 8 Weeks: No Recent Travel Out of the Country Within the Last 8 Weeks: No Medications and Allergies Active Medications: Active Medications Acetaminophen (Tylenol) 650 mg PO Q4H PRN PRN Reason: PAIN SCALE 0-3 OR TEMP> 100.5F Al Hydroxide/Mg Hydroxide (Milk Of Radha Liq) 15 ml PO DAILY PRN PRN Reason: CONSTIPATION Alteplase, Recombinant (Cathflo Activase Inj) 2 mg I-CATHETER UNSCH PRN PRN Reason: for clotted access port Hydromorphone HCl (Dilaudid Pf Inj) 2 mg IV.PUSH Q3H DIPESH Sodium Chloride (Ns Inj) 1,000 mls @ 84 mls/hr IV.CONT .[id number] DIPESH Lorazepam (Ativan) 0.5 mg PO DAILY PRN PRN Reason: ANXIETY Methadone HCl (Dolophine) 10 mg PO Q8H DIPESH Stop: 10/07/17 19:14 Prochlorperazine Edisylate (Compazine Inj) 10 mg IV.PUSH Q4H PRN PRN Reason: NAUSEA OR VOMITING Temazepam (Restoril) 15 mg PO HS PRN PRN Reason: SLEEP Allergies Allergy/AdvReac Type Severity Reaction Status Date / Time enoxaparin Allergy Severe UNKNOWN Verified 10/04/17 18:25 REACTION heparin (porcine) Allergy Severe UNKNOWN Verified 10/04/17 18:25 REACTION Exam Vital signs: Vital Signs 10/04/17 18:02 Temperature 99.1 F Pulse Rate 89 Respiratory Rate 16 Blood Pressure 158/95 H Pulse Oximetry 100 Intake & Output 10/04/17 10/04/17 10/05/17 06:59 18:59 06:59 Intake Total 0 / 0 Output Total 0 / 0 Balance 0 / 0 Weight 55.1 kg Intake: Oral 0 / 0 Output: Urine 0 / 0 Other: Date of Last Bowel Movement 10/04/17 Weight On Admission 55.1 kg Narrative: GENERAL: Well-slender well-developed patient. SKIN: Warm and dry. HEAD: Normocephalic. EYES: Mild scleral icterus. No injection or drainage. NECK: Supple, trachea midline. No JVD or lymphadenopathy. LYMPHATIC: No adenopathy. CARDIOVASCULAR: Regular rate and rhythm without murmurs. RESPIRATORY: Breath sounds equal bilaterally. No accessory muscle use. GASTROINTESTINAL: Abdomen soft, non-tender, nondistended. EXTREMITIES: No cyanosis, or edema. MUSCULOSKELETAL: Adequate muscle tone. Thin arms and legs, no trauma. Severe bone pain. NEUROLOGICAL: No obvious focal deficit. Awake, alert, and oriented x3. PSYCHIATRIC: Appropriate mood and affect; insight and judgment normal. - Constitutional moderate distress Results - Labs CBC & Chem 7: 10/06/17 05:00 10/06/17 05:00 Caprini VTE Risk Assessment Caprini VTE Risk Assessment: No/Low Risk (score <= 1) Lennyrini Risk Assessment Model: Point Value = 1 Point Value = 2 Point Value = 3 Point Value = 5 Age 41-60 Minor surgery BMI > 25 kg/m2 Swollen legs Varicose veins or History of unexplained or recurrent spontaneous Oral contraceptives or hormone replacement Sepsis (< 1 month) Serious lung disease, including pneumonia (< 1 month) Abnormal pulmonary function Acute myocardial infarction Congestive heart failure (< 1 month) History of inflammatory bowel disease Medical patient at bed rest Age 61-74 Arthroscopic surgery Major open surgery (> 45 min) Laparoscopic surgery (> 45 min) Malignancy Confined to bed (> 72 hours) Immobilizing plaster cast Central venous access Age >= 75 History of VTE Family history of VTE Factor V Leiden Prothrombin [id number] Lupus anticoagulant Anticardiolipin antibodies Elevated serum homocysteine Heparin-induced thrombocytopenia Other congenital or acquired thrombophilia Stroke (< 1 month) Elective arthroplasty Hip, pelvis, or leg fracture Acute spinal cord injury (< 1 month) Prophylaxis Regimen: Total Risk Factor Score Risk Level Prophylaxis Regimen 0-1 Low Early ambulation 2 Moderate Order ONE of the following: *Sequential Compression Device (SCD) *Heparin 5000 units SQ BID 3-4 Higher Order ONE of the following medications: *Heparin 5000 units SQ TID *Enoxaparin/Lovenox 40 mg SQ daily (WT < 150 kg, CrCl > 30 mL/min) *Enoxaparin/Lovenox 30 mg SQ daily (WT < 150 kg, CrCl > 10-29 mL/min) *Enoxaparin/Lovenox 30 mg SQ BID (WT < 150 kg, CrCl > 30 mL/min) AND/OR *Sequential Compression Device (SCD) 5 or more Highest Order ONE of the following medications: *Heparin 5000 units SQ TID (Preferred with Epidurals) *Enoxaparin/Lovenox 40 mg SQ daily (WT < 150 kg, CrCl > 30 mL/min) *Enoxaparin/Lovenox 30 mg SQ daily (WT < 150 kg, CrCl > 10-29 mL/min) *Enoxaparin/Lovenox 30 mg SQ BID (WT < 150 kg, CrCl > 30 mL/min) AND *Sequential Compression Device (SCD) Assessment and Plan - Assessment (1) Sickle cell anemia with crisis Code(s): D57.00 - Hb-SS disease with crisis, unspecified Status: Acute - Plan Ms. Vergara is a 57-year-old woman with hemoglobin sickle/thalassemia. She is admitted for pain management and supportive care of her vaso occlusive pain crisis. Her methadone, long acting pain medication is optimized. Dilaudid IV is used for breakthrough scheduled in the first 24 hours with patient able to refuse. Oxygen and IVF hydration also given. Bowel regimen is offered. Antiemetic therapy for use prn. Labs including CBC, LDH, CMP, Bili comp are ordered for tomorrow. Monitor for thrombocytopenia given h/o HIT antibody. Avoid transfusion if possible unless symptoms, pt has multiple antibodies which makes it difficult to type and cross blood. Discussed with Dr. Coronado covering for the weekend. Pt admitted to the hematology service. Code Status: Full code
[2017-10-04] MEDS: Methadone 10 MG Tablet PO SCH (20:55)
[2017-10-04] MEDS ORDERED: Temazepam 15 MG Capsule PO PRN (21:00)
[2017-10-05] MEDS: HYDROmorphone PF Inj 2 MG/ML Vial IV.PUSH SCH ×8 (02:17→23:00)
[2017-10-05] MEDS: Methadone 10 MG Tablet PO SCH ×3 (05:50→20:49)
[2017-10-05 07:05] LABS: Baso # (Auto) 0.1 th/mm3 (0.0-0.2); Baso % (Auto) 1.4 % (0.0-2.0); Eos # (Auto) 0.1 th/mm3 (0.0-0.4); Eos % (Auto) 1.3 % (0.0-4.0); Hematocrit 22.9 % (35.0-46.0); Hemoglobin 7.7 gm/dL (11.6-15.3); Lymph # (Auto) 1.5 th/mm3 (1.0-4.8); Lymph % (Auto) 27.3 % (9.0-44.0); Mean Corpuscular HGB Conc 33.7 % (32.0-36.0); Mean Corpuscular Hemoglobin 23.3 pg (27.0-34.0); Mean Corpuscular Volume 69.3 fL (80.0-100.0); Mean Platelet Volume 9.1 fL (7.0-11.0); Mono # (Auto) 0.4 th/mm3 (0.0-0.9); Mono % (Auto) 7.3 % (0.0-8.0); Neut # (Auto) 3.5 th/mm3 (1.8-7.7); Neut % (Auto) 62.7 % (16.0-70.0); Platelet Count 136 th/mm3 (150-450); Red Cell Distribution Width 21.7 % (11.6-17.2); White Blood Count 5.6 th/mm3 (4.0-11.0)
[2017-10-05 07:12] LABS: Alanine Aminotransferase 14 U/L (10-53); Albumin 3.5 g/dL (3.4-5.0); Anion Gap 5 meq/L (5-15); Aspartate Aminotransferase 36 U/L (15-37); Blood Urea Nitrogen 10 mg/dL (7-18); Calcium 9.3 mg/dL (8.5-10.1); Carbon Dioxide 27.9 meq/L (21.0-32.0); Chloride 110 meq/L (98-107); Glomerular Filtration Rate Greater Than 89 mL/min (>89); Glucose,Random 89 mg/dL (74-106); Potassium 4.2 meq/L (3.5-5.1); Sodium 143 meq/L (136-145)
[2017-10-05 07:15] LABS: Alkaline Phosphatase 57 U/L (45-117); Lactate Dehydrogenase 438 U/L (84-246)
[2017-10-05] MEDS: Sod Chloride 0.9% Inj 1,000 ML IV.CONT SCH ×2 (08:50→20:49)
[2017-10-05 08:58] LABS: Ovalocytes 2+; Platelet Morphology Normal (Normal); Tear Drop Cells 2+
--- NOTE | 2017-10-05 10:51 | P.PNONC ---
Subjective Interval history: Afebrile Patient reports she is feeling somewhat better Still has pain in her arms and legs Objective Vital Signs/Intake & Output: Vital Signs 10/04/17 18:02 10/04/17 20:00 10/04/17 20:56 Temperature 99.1 F 99.0 F Pulse Rate 89 98 H Respiratory Rate 16 16 16 Blood Pressure 158/95 H 158/95 H Pulse Oximetry 100 10/04/17 23:55 10/05/17 00:01 10/05/17 04:00 Temperature 99.0 F 98.3 F 98.3 F Pulse Rate 98 H 88 90 Respiratory Rate 16 16 16 Blood Pressure 158/95 H 141/82 H 118/68 Pulse Oximetry 97 10/05/17 04:20 Temperature Pulse Rate Respiratory Rate 16 Blood Pressure Pulse Oximetry Intake & Output 10/04/17 10/05/17 10/05/17 18:59 06:59 18:59 Intake Total 0 / 0 240 / 240 1000 / 1000 Output Total 0 / 0 Balance 0 / 0 240 / 240 1000 / 1000 Weight 121 lb 7.595 oz 122 lb 5.705 oz Intake: IV 1000 / 1000 NS Inj 1,000 ML @ 84 mls/hr IV. 1000 / 1000 CONT .[id number] [facility] Rx#:[id number] Oral 0 / 0 240 / 240 Output: Urine 0 / 0 Other: # Voids 1 Date of Last Bowel Movement 10/04/17 10/04/17 Weight On Admission 121 lb 7.595 oz Result Diagrams: 10/05/17 06:00 10/05/17 06:00 Laboratory Results: Laboratory Results - last 24 hr 10/05/17 10/05/17 06:00 06:00 WBC 5.6 RBC 3.30 L Hgb 7.7 L Hct 22.9 L MCV 69.3 L MCH 23.3 L MCHC 33.7 RDW 21.7 H Plt Count 136 L MPV 9.1 Prelim Diff (Auto) Slide review pending Neut % (Auto) 62.7 Lymph % (Auto) 27.3 Bureau % (Auto) 7.3 Eos % (Auto) 1.3 Baso % (Auto) 1.4 Neut # (Auto) 3.5 Lymph # (Auto) 1.5 Bureau # (Auto) 0.4 Eos # (Auto) 0.1 Baso # (Auto) 0.1 WBC Differential . Diff Scan Auto diff confirmed Differential Comment . Platelet Estimate Low L Platelet Morphology Normal Tear Drop Cells 2+ H Ovalocytes 2+ H Keratocytes Occ H Sodium 143 Potassium 4.2 Chloride 110 H Carbon Dioxide 27.9 Anion Gap 5 BUN 10 Creatinine 0.74 Estimated GFR Greater than 89 Random Glucose 89 Calcium 9.3 Total Bilirubin 2.5 H Direct Bilirubin 0.3 H Indirect Bilirubin 2.2 H AST 36 ALT 14 Alkaline Phosphatase 57 Lactate Dehydrogenase 438 H Total Protein 7.0 Albumin 3.5 Medications: Active Medications Generic Name Dose Route Start Last Admin Trade Name Martínq PRN Reason Stop Dose Admin Hydromorphone HCl 2 mg 10/04/17 20:00 10/05/17 08:36 Dilaudid Pf Inj IV.PUSH 2 mg Q3H DIPESH Administration Sodium Chloride 1,000 mls @ 84 mls/hr 10/04/17 19:15 10/05/17 08:50 Ns Inj IV.CONT 84 mls/hr .[id number] DIPESH Administration Methadone HCl 10 mg 10/04/17 20:00 10/05/17 05:50 Dolophine PO 10/07/17 19:59 10 mg Q8H DIPESH Administration Objective Remarks: GENERAL: Older female resting in bed in no obvious distress SKIN: Warm and dry. HEAD: Normocephalic. EYES: No scleral icterus. No injection or drainage. NECK: Supple, trachea midline. No JVD or lymphadenopathy. CARDIOVASCULAR: Regular rate and rhythm without murmurs. RESPIRATORY: Breath sounds equal bilaterally. No accessory muscle use. GASTROINTESTINAL: Abdomen soft, non-tender, nondistended. EXTREMITIES: No cyanosis, or edema. MUSCULOSKELETAL: Adequate muscle tone. NEUROLOGICAL: No obvious focal deficit. Awake, alert, and oriented x3. Assessment/Plan - Plan Patient is a 57-year-old -[place] with hemoglobin SC disease admitted with vaso-occlusive pain crisis. 1. Try to hold blood transfusion as patient has multiple antibodies, difficult to match. 2. Transfuse for hemoglobin less than 7 3. Check CBC in a.m. 4. Continue current pain regimen, IV fluids - Attending Statement The exam, history, and the medical decision-making described in the above note were completed with the assistance of the mid-level provider. I reviewed and agree with the findings presented. I attest that I had a [id number] encounter with the patient on the same day, and personally performed and documented my assessment and findings in the medical record. Patient still has pain in her right lower extreme. Hemoglobin 7.7. Patient denies any chest pain or shortness of breath. Continue supportive care with hydration and pain medication. Will consider transfusion if she is more symptomatic.
[2017-10-06] MEDS: HYDROmorphone PF Inj 2 MG/ML Vial IV.PUSH SCH ×5 (02:17→15:30)
[2017-10-06] MEDS: Methadone 10 MG Tablet PO SCH ×2 (05:02→11:36)
[2017-10-06 06:08] LABS: Hematocrit 23.7 % (35.0-46.0); Hemoglobin 7.9 gm/dL (11.6-15.3); Mean Corpuscular HGB Conc 33.5 % (32.0-36.0); Mean Corpuscular Hemoglobin 23.5 pg (27.0-34.0); Mean Corpuscular Volume 69.9 fL (80.0-100.0); Mean Platelet Volume 8.8 fL (7.0-11.0); Platelet Count 113 th/mm3 (150-450); Red Blood Count 3.39 mil/mm3 (4.00-5.30); Red Cell Distribution Width 21.5 % (11.6-17.2); White Blood Count 5.2 th/mm3 (4.0-11.0)
[2017-10-06 06:22] LABS: Albumin 3.5 g/dL (3.4-5.0); Anion Gap 6 meq/L (5-15); Aspartate Aminotransferase 37 U/L (15-37); Blood Urea Nitrogen 8 mg/dL (7-18); Calcium 9.2 mg/dL (8.5-10.1); Carbon Dioxide 27.2 meq/L (21.0-32.0); Chloride 109 meq/L (98-107); Glomerular Filtration Rate Greater Than 89 mL/min (>89); Glucose,Random 92 mg/dL (74-106); Sodium 142 meq/L (136-145)
[2017-10-06 06:23] LABS: Alanine Aminotransferase 15 U/L (10-53)
[2017-10-06 06:25] LABS: Alkaline Phosphatase 62 U/L (45-117); Lactate Dehydrogenase 427 U/L (84-246); Total Protein 7.2 g/dL (6.4-8.2)
[2017-10-06] MEDS: Sod Chloride 0.9% Inj 1,000 ML IV.CONT SCH (08:09)
[2017-10-06 09:45] LABS: Eosinophils 1 % (0-4); Lymphocytes 43 % (9-44); Monocytes 6 % (0-8); Tallied Nucleated RBC 2 (0-0)
[2017-10-06 09:46] LABS: Ovalocytes 2+
[2017-10-06 09:47] LABS: Platelet Morphology Normal (Normal); Tear Drop Cells 2+
[2017-10-06 09:48] LABS: Target Cells 1+
--- NOTE | 2017-10-06 10:22 | P.PNONC ---
Subjective Interval history: Pt ambulating in room. States that she is feeling much better. Her pain has decreased. Denies any new pains. Objective Vital Signs/Intake & Output: Vital Signs 10/05/17 10:42 10/05/17 12:30 10/05/17 16:30 Temperature 99.2 F 97.6 F 98.8 F Pulse Rate 96 H 100 H 101 H Respiratory Rate 16 16 18 Blood Pressure 120/68 151/90 H 154/88 H Pulse Oximetry 95 100 100 10/05/17 20:00 10/05/17 20:47 10/06/17 00:00 Temperature 97.5 F L 99.2 F Pulse Rate 90 85 Respiratory Rate 16 18 16 Blood Pressure 142/82 H 124/70 Pulse Oximetry 99 99 10/06/17 04:00 Temperature 98.7 F Pulse Rate 103 H Respiratory Rate Blood Pressure 146/86 H Pulse Oximetry 99 Intake & Output 10/05/17 10/06/17 10/06/17 18:59 06:59 18:59 Intake Total 1900 / 1900 1477 / 1477 1000 / 1000 Balance 1900 / 1900 1477 / 1477 1000 / 1000 Weight 55.3 kg Intake: IV 1000 / 1000 1000 / 1000 1000 / 1000 NS Inj 1,000 ML @ 84 mls/hr IV. 1000 / 1000 1000 / 1000 1000 / 1000 CONT .[id number] [facility] Rx#:[id number] Oral 900 / 900 240 / 240 Oral Supplement 237 / 237 Other: # Voids 4 2 Date of Last Bowel Movement 10/04/17 10/04/17 Result Diagrams: 10/06/17 05:00 10/06/17 05:00 Laboratory Results: Laboratory Results - last 24 hr 10/06/17 10/06/17 05:00 05:00 WBC 5.2 RBC 3.39 L Hgb 7.9 L Hct 23.7 L MCV 69.9 L MCH 23.5 L MCHC 33.5 RDW 21.5 H Plt Count 113 L MPV 8.8 Prelim Diff (Auto) Manual diff required WBC Differential Manual diff final Seg Neuts % (Manual) 49 Band Neuts % (Manual) 1 Lymphocytes % (Manual) 43 Monocytes % (Manual) 6 Eosinophils % (Manual) 1 Abs Neuts (Manual) 2.6 Nucleated RBCs/100 WBC 2 H Differential Comment . Platelet Estimate Low L Platelet Morphology Normal Target Cells 1+ H Tear Drop Cells 2+ H Ovalocytes 2+ H Keratocytes 1+ H Sodium 142 Potassium 4.0 Chloride 109 H Carbon Dioxide 27.2 Anion Gap 6 BUN 8 Creatinine 0.72 Estimated GFR Greater than 89 Random Glucose 92 Calcium 9.2 Total Bilirubin 2.1 H AST 37 ALT 15 Alkaline Phosphatase 62 Lactate Dehydrogenase 427 H Total Protein 7.2 Albumin 3.5 Medications: Active Medications Generic Name Dose Route Start Last Admin Trade Name Freq PRN Reason Stop Dose Admin Al Hydroxide/Mg Hydroxide 15 ml 10/04/17 18:58 10/05/17 21:05 Milk Of Magnesia Liq PO 15 ml DAILY PRN Administration CONSTIPATION Hydromorphone HCl 2 mg 10/04/17 20:00 10/06/17 08:10 Dilaudid Pf Inj IV.PUSH 2 mg Q3H DIPESH Administration Sodium Chloride 1,000 mls @ 84 mls/hr 10/04/17 19:15 10/06/17 08:09 Ns Inj IV.CONT 84 mls/hr .[id number] DIPESH Administration Methadone HCl 10 mg 10/04/17 20:00 10/06/17 05:02 Dolophine PO 10/07/17 19:59 10 mg Q8H DIPESH Administration Objective Remarks: GENERAL: Well developed female patient, ambulating in room. In no distress. SKIN: Warm and dry. HEAD: Normocephalic. EYES: No scleral icterus. No injection or drainage. NECK: Supple, trachea midline. CARDIOVASCULAR: Regular rate and rhythm without murmurs. RESPIRATORY: Posterior breath sounds clear, equal bilaterally. No accessory muscle use. GASTROINTESTINAL: Abdomen soft, non-tender, nondistended. EXTREMITIES: No cyanosis, or edema. MUSCULOSKELETAL: Adequate muscle tone. NEUROLOGICAL: No obvious focal deficit. Awake, alert, and oriented x3. Assessment/Plan - Plan Patient is a 57-year-old -[place] with hemoglobin SC disease admitted with vaso-occlusive pain crisis. 1. Try to hold blood transfusion as patient has multiple antibodies, difficult to match. 2. Transfuse for hemoglobin less than 7 3. HGb slightly improved today at 7.9. Will continue to monitor. 4. Continue current pain regimen, IV hydration. - Attending Statement The exam, history, and the medical decision-making described in the above note were completed with the assistance of the mid-level provider. I reviewed and agree with the findings presented. I attest that I had a [id number] encounter with the patient on the same day, and personally performed and documented my assessment and findings in the medical record. Patient is feeling better. She wants to go home. Hemoglobin trended up slightly 7.9. Her pain has improved. We will discharge her home today. She will continue outpatient pain medication. She has follow-up with Dr. Chin.
== END 2017-10-06 16:36 | disposition home or self-care (01) ==
LOC: HCIN 17:35
PROVIDERS: ADMIT Internal Medicine Hematology & Oncology; ATTEND Internal Medicine Hematology & Oncology